=== PATIENT | female | born 1950 | race Caucasian/White ===

== ENCOUNTER 2017-05-03 06:00 | Outpatient (RCR) | payer MEDICARE, OTHER, SELFPAY | END 2017-05-04 23:59 | LOC: CR 06:00 | PROVIDERS: Family Provider Family Medicine; PCP Family Medicine; Visit Provider Internal Medicine Cardiovascular Disease | DX: Z00.00 Encounter for general adult medical examination without abnormal findings (principal) ==

== ENCOUNTER 2017-05-31 06:00 | Outpatient (RCR) | payer MEDICARE, OTHER, SELFPAY | END 2017-06-01 23:59 | LOC: CR 06:00 | PROVIDERS: Family Provider Family Medicine; PCP Family Medicine; Visit Provider Internal Medicine Cardiovascular Disease | DX: Z00.00 Encounter for general adult medical examination without abnormal findings (principal) ==

== ENCOUNTER 2017-06-30 06:00 | Outpatient (RCR) | payer SELFPAY | END 2017-07-02 23:59 | LOC: CR 06:00 | PROVIDERS: Family Provider Family Medicine; PCP Family Medicine; Visit Provider Internal Medicine Cardiovascular Disease | DX: Z00.00 Encounter for general adult medical examination without abnormal findings (principal) ==

== ENCOUNTER 2017-07-28 06:00 | Outpatient (RCR) | payer SELFPAY | END 2017-08-01 23:59 | LOC: CR 06:00 | PROVIDERS: Family Provider Family Medicine; PCP Family Medicine; Visit Provider Internal Medicine Cardiovascular Disease | DX: Z00.00 Encounter for general adult medical examination without abnormal findings (principal) ==

== ENCOUNTER 2017-09-01 06:00 | Outpatient (RCR) | payer SELFPAY | END 2017-09-01 23:59 | LOC: CR 06:00 | PROVIDERS: Family Provider Family Medicine; PCP Family Medicine; Visit Provider Internal Medicine Cardiovascular Disease | DX: Z00.00 Encounter for general adult medical examination without abnormal findings (principal) ==

== ENCOUNTER 2017-09-29 06:00 | Outpatient (RCR) | payer SELFPAY | END 2017-10-01 23:59 | LOC: CR 06:00 | PROVIDERS: Family Provider Family Medicine; PCP Family Medicine; Visit Provider Internal Medicine Cardiovascular Disease | DX: Z00.00 Encounter for general adult medical examination without abnormal findings (principal) ==

== ENCOUNTER 2017-11-01 06:00 | Outpatient (RCR) | payer SELFPAY | END 2017-11-01 23:59 | LOC: CR 06:00 | PROVIDERS: Family Provider Family Medicine; PCP Family Medicine; Visit Provider Internal Medicine Cardiovascular Disease | DX: Z00.00 Encounter for general adult medical examination without abnormal findings (principal) ==

== ENCOUNTER 2017-12-01 06:00 | Outpatient (RCR) | payer SELFPAY | END 2017-12-02 23:59 | LOC: CR 06:00 | PROVIDERS: Family Provider Family Medicine; PCP Family Medicine; Visit Provider Internal Medicine Cardiovascular Disease | DX: Z00.00 Encounter for general adult medical examination without abnormal findings (principal) ==

== ENCOUNTER 2017-12-29 06:00 | Outpatient (RCR) | payer SELFPAY | END 2018-01-01 23:59 | LOC: CR 06:00 | PROVIDERS: Family Provider Family Medicine; PCP Family Medicine; Visit Provider Internal Medicine Cardiovascular Disease | DX: Z00.00 Encounter for general adult medical examination without abnormal findings (principal) ==

== ENCOUNTER 2018-01-31 06:00 | Outpatient (RCR) | payer SELFPAY | END 2018-02-01 23:59 | LOC: CR 06:00 | PROVIDERS: Family Provider Family Medicine; PCP Family Medicine; Referring Provider Internal Medicine Cardiovascular Disease; Visit Provider Internal Medicine Cardiovascular Disease | DX: Z00.00 Encounter for general adult medical examination without abnormal findings (principal) ==

== ENCOUNTER → 2018-02-03 10:38 | Outpatient (CLI) | payer MEDICARE, OTHER, SELFPAY ==
--- NOTE | 2018-02-03 10:44 | US_ITS ---
STUDY: THYROID ULTRASOUND REASON FOR EXAM: Female, 67 years old. Thyroid nodule follow-up TECHNIQUE: Ultrasound evaluation of the thyroid was performed with real-time and static pablo-scale imaging. COMPARISON: 02/20/2017 FINDINGS: RIGHT LOBE: The right lobe of the thyroid gland measures 5.4 x 2.1 x 1.9 cm. There is a homogeneous echotexture. There are 2 solid nodules in the right thyroid lobe measures 1.8 x 1.8 x 1.4 cm and 1.3 x 1.2 x 1.6 cm. The nodules have mildly increased in size since the prior study. The nodules are predominantly slightly hyperechoic with hypoechoic rims and mild intralobular nodular vascular flow. No definitive microcalcifications. 3 mm hypoechoic nodule is stable. LEFT LOBE: The left lobe of the thyroid gland measures 5.4 x 2.1 x 1.6 cm. There is a homogeneous echotexture. There are no demonstrated solid, cystic or complex lesions. ISTHMUS: The isthmus measures 3 mm. The regional lymph nodes are normal. US/Thyroid IMPRESSION: 1. Since 02/10/2017, mild increased size of right solid thyroid nodules with indeterminate sonographic features. Electronically Signed: Bebo Wilkes MD at 19:43 EST , Service support ,
== END ==
PROVIDERS: Family Provider Family Medicine; PCP Family Medicine; Referring Provider Family Medicine; Visit Provider Family Medicine
DX: E04.1 Nontoxic single thyroid nodule (principal)
CPT/HCPCS: 76536

== ENCOUNTER 2018-03-02 06:00 | Outpatient (RCR) | payer SELFPAY | END 2018-03-03 23:59 | LOC: CR 06:00 | PROVIDERS: Family Provider Family Medicine; PCP Family Medicine; Referring Provider Internal Medicine Cardiovascular Disease; Visit Provider Internal Medicine Cardiovascular Disease | DX: Z00.00 Encounter for general adult medical examination without abnormal findings (principal) ==

== ENCOUNTER → 2018-03-08 15:47 | Outpatient (CLI) | payer MEDICARE, OTHER, SELFPAY ==
--- NOTE | 2018-03-08 13:00 | LES_PTH ---
PATIENT: SORAYA MAURICIO LOC: [facility] U#:[id number] AGE/SX: 74/F ROOM: RE03/08/[address]: Dr. Cr Rojas MD : [id number] BED: DIS: SPEC #: [id number] RECD: 03/08/18 15:18 STATUS: JOSE ARMOND #: [id number] DEE DEE: 03/08/18 13:[address]: Cr Rojas DEPT: SURGICAL PATHOLOGY RECD BY: Won Sinclair ENTERED: 03/09/18 08:02 SP TYPE: Lesion OTHR DR: Dr. Chalo Rojas III, MD Tissues: Skin of axilla, NOS Procedures: Surgery Specimen Level IV HEADER OPERATION: Excision left axillary lesion PRE-OP DIAGNOSIS: Partially avulsed skin lesion left axilla TISSUE SUBMITTED: Left axilla tissue MICROSCOPIC DIAGNOSIS Left axillary lesion, excisional biopsy: Seborrheic keratosis. SJ:ricci 03/10/18 MICROSCOPIC DESCRIPTION Slides are reviewed. GROSS DESCRIPTION Received in fixative is one container labeled with the patient's name and designated left axilla. The specimen consists of a piece of pittman-white skin measuring 2 x 1 cm and up to 0.5 cm in thickness. There is a raised, brown lesion on the surface measuring 2 x 1.5 x 0.4 cm. The specimen is inked, serially sectioned and submitted entirely in two cassettes. / AKIKO:ricci 03/09/18 TC:1 CPT: 90052
[2018-03-08 13:02] VITALS: BMI 23.8
== END ==
PROVIDERS: Family Provider Family Medicine; PCP Family Medicine; Referring Provider Surgery; Visit Provider Surgery
DX: L82.1 Other seborrheic keratosis (principal)
CPT/HCPCS: 88305

== ENCOUNTER 2018-03-23 06:00 | Outpatient (RCR) | payer SELFPAY ==
[2018-02-16 09:02] VITALS: BMI 23.8
== END 2018-04-03 23:59 ==
LOC: CR 06:00
PROVIDERS: Family Provider Family Medicine; PCP Family Medicine; Referring Provider Internal Medicine Cardiovascular Disease; Visit Provider Internal Medicine Cardiovascular Disease
DX: Z00.00 Encounter for general adult medical examination without abnormal findings (principal)

== ENCOUNTER 2018-04-06 19:52 | Emergency (ER) | payer MEDICARE, OTHER, SELFPAY ==
[2018-03-08 13:02] VITALS: BMI 23.8
[2018-04-06 19:53] VITALS: BP 144/98; PULSE 60; RESP 9; TEMP 37.2; O2SAT 100; BMI 23.8
--- NOTE | 2018-04-06 20:42 | EKG12_ITS ---
Test Reason : CP Blood Pressure : / mmHG Vent. Rate : 059 BPM Atrial Rate : 059 BPM P-R Int : 146 ms QRS Dur : 066 ms QT Int : 404 ms P-R-T Axes : 072 063 039 degrees QTc Int : 399 ms Sinus bradycardia Nonspecific T wave abnormality Abnormal ECG Confirmed by JEFRY TERAN, DAYNE ([id number]), general expeditor JAMES COOK ([id number]) on 04/11/2018 10:48:11 AM Referred By: Dayne Capps Confirmed By:DAYNE CAPPS MD
--- NOTE | 2018-04-06 20:47 | RAD_ITS ---
STUDY: X-RAY CHEST REASON FOR EXAM: Female, 67 years old. Chest pain TECHNIQUE: A single frontal view of the chest was obtained. COMPARISON: September 01, 2016 FINDINGS: Lines and tubes: None. Lungs: Hyperinflated. No focal airspace opacities. Pleura: No demonstrated abnormality. Mediastinum/logan: Unremarkable. Cardiovascular: Normal size cardiac silhouette. Central vascularity unremarkable. Thoracic aorta unremarkable. Soft tissues: Unremarkable. Bones: Mild degenerative changes in spine and shoulders. There is levoscoliosis of the lower thoracic spine. Upper abdomen: No demonstrated abnormality. RAD/Chest 1 View (Portable) IMPRESSION: No acute cardiopulmonary abnormalities. Stable COPD. Electronically Signed: Ana Mi MD at 21:57 EST Tel Direct: [phone], Service support ,
[2018-04-06] MEDS: Aspirin 81 MG TAB.CHEW 324 MG PO (20:48)
[2018-04-06 21:12] LABS: Absolute Lymphocyte Count 1.78 X10^3/ul (0.83-4.51); Absolute Neutrophil Count 3.6 X10^3/uL (2.0-7.7); Basophil# 0.02 X10^3/uL; Basophil% 0.3 % (0-1); Hematocrit 41.1 % (37-47); Hemoglobin 13.4 g/dl (12.0-15.0); Lymphocyte # 1.78 X10^3/ul (4.0); Lymphocyte % 30.4 % (19-41); Mean Corp Hgb Conc 32.6 g/gl (32-36); Mean Corpuscular Hgb 30.6 pg (27.0-32.0); Mean Corpuscular Volume 93.8 fL (81-99); Mean Platelet Vol. 10.7 fl (6.2-12.0); Monocyte# 0.44 X10^3/uL; Monocyte% 7.5 % (0-10); Neutrophil # 3.62 X10^3/uL (2.7-7.7); Neutrophil % 61.8 % (47-70); Platelet Count 193 K/mm3 (150-450); RBC Distribution Width CV 13.4 % (11.6-14.6); RBC Distribution Width SD 45.9 fl (35.1-43.9); Red Blood Count 4.38 M/mm3 (4.2-5.4); White Blood Count 5.9 K/mm3 (4.4-11.0)
[2018-04-06 21:23] LABS: Anion Gap 7 (5-15); BUN 9 mg/dL (7-18); BUN/Creat Ratio 13.3 RATIO (10-20); Chloride 106 mmol/L (98-107); Creatinine, Serum 0.68 mg/dL (0.55-1.02); EST Glomerular Filtration Rate 91 mL/min (>60); Est Glom Filt Rate - Afr Amer 110 mL/min (>60); Glucose 94 mg/dL (74-106); Potassium 3.4 mmol/L (3.5-5.1); Sodium Level 142 mmol/L (136-145)
[2018-04-06 21:25] LABS: POSITIVE COUNT NO; POSITIVE DIFFERENTIAL NO; POSITIVE MORPHOLOGY NO
[2018-04-06 22:04] VITALS: BP 106/70; PULSE 61; RESP 16; O2SAT 97
--- NOTE | 2018-04-06 22:48 | ED.VISSUMM ---
- ER Visit Summary Date of Service: 04/06/18 Chief Complaint: Chest pain History of Present Illness: The patient is a 67 F who presents with chest pain that began yesterday. Patient states the pain waxes and wanes. Patient describes the pain as a heaviness. Patient states the pain is mainly on the right side of her chest. Patient states that occasionally gets some pain on the left side of her chest that is more sharp. Patient states the pain is worse with eating. Patient states nothing seems to help with the pain. Patient admits to a cough. Patient denies any nausea or vomiting. Patient denies any diaphoresis or shortness of breath. Patient denies any lightheadedness or dizziness. Patient denies any palpitations. Patient denies any cardiac risk factors. Physical Examination: Vital signs are stable. Patient is afebrile. Patient is in no acute distress. Oral mucosa is pink and moist. Neck is supple. Trachea is midline. There is no JVD noted. Heart was regular rate and rhythm. Lungs are clear and equal bilateral. Abdomen is soft. Bowel sounds are normal. There is no tenderness. There is no guarding noted. Skin is warm dry. Cranial nerves II through XII are intact. There are no focal motor or sensory deficits noted. The remaining physical exam is within normal limits. Test Results: EKG showed normal sinus rhythm with a rate of 59. There are nonspecific ST-T wave changes noted. This was unchanged compared to previous EKG dated 09/01/2016. CBC was normal. Basic metabolic profile showed a slight hypokalemia of 3.4. Troponin was normal. Portable chest x-ray shows chronic changes but no acute cardiopulmonary process. Emergency Department Course and Treatment: Patient was given aspirin here. Patient felt better on reevaluation. Patient has a HEART score of 3. Patient has a YOCASTA score of 1. Patient was advised that this is low risk for acute cardiac event. Patient was instructed to follow-up with her primary care physician in 5-7 days. Patient and her understood and were agreeable with the plan. All questions were answered. Disposition: Discharge home Impression: Chest pain of uncertain etiology This note was generated with [employer] software. It may contain incorrect words, spelling, and punctuation that were not noted in review of the chart prior to signing ED Disposition - Plan for ED Patient: Disposition: Home or Assisted Living Chief Complaint: Chest Pain Diagnosis: Chest pain of uncertain etiology Instructions: ED Chest Pain Atypical Unkn Cause Referrals: Chalo Rojas III, MD [Primary Care Provider] -
[2018-04-06 23:02] VITALS: BP 106/79; PULSE 64; RESP 18; O2SAT 97
== END 2018-04-06 23:02 | disposition home or self-care (01) ==
PROVIDERS: Emergency Provider Emergency Medicine; Family Provider Family Medicine; PCP Family Medicine
DX: R07.89 Other chest pain (principal); R05 Cough; R10.9 Unspecified abdominal pain; M54.9 Dorsalgia, unspecified; R51 Headache; E87.6 Hypokalemia; G25.0 Essential tremor; I49.9 Cardiac arrhythmia, unspecified; Z79.899 Other long term (current) drug therapy
CPT/HCPCS: 71045; 80048; 84484; 85025; 93005; 99285; A4216

== ENCOUNTER 2018-05-04 06:00 | Outpatient (RCR) | payer SELFPAY ==
[2018-03-08 13:02] VITALS: BMI 23.8
== END 2018-05-04 23:59 ==
LOC: CR 06:00
PROVIDERS: Family Provider Family Medicine; PCP Family Medicine; Referring Provider Internal Medicine Cardiovascular Disease; Visit Provider Internal Medicine Cardiovascular Disease
DX: Z00.00 Encounter for general adult medical examination without abnormal findings (principal)

== ENCOUNTER 2018-06-01 06:00 | Outpatient (RCR) | payer SELFPAY | END 2018-06-01 23:59 | LOC: CR 06:00 | PROVIDERS: Family Provider Family Medicine; PCP Family Medicine; Referring Provider Internal Medicine Cardiovascular Disease; Visit Provider Internal Medicine Cardiovascular Disease | DX: Z00.00 Encounter for general adult medical examination without abnormal findings (principal) ==

== ENCOUNTER 2018-06-29 06:00 | Outpatient (RCR) | payer SELFPAY | END 2018-07-02 23:59 | LOC: CR 06:00 | PROVIDERS: Family Provider Family Medicine; PCP Family Medicine; Referring Provider Internal Medicine Cardiovascular Disease; Visit Provider Internal Medicine Cardiovascular Disease | DX: Z00.00 Encounter for general adult medical examination without abnormal findings (principal) ==

== ENCOUNTER 2018-08-01 06:00 | Outpatient (RCR) | payer SELFPAY | END 2018-08-01 23:59 | LOC: CR 06:00 | PROVIDERS: Family Provider Family Medicine; PCP Family Medicine; Referring Provider Internal Medicine Cardiovascular Disease; Visit Provider Internal Medicine Cardiovascular Disease | DX: Z00.00 Encounter for general adult medical examination without abnormal findings (principal) ==

== ENCOUNTER 2018-09-28 06:00 | Outpatient (RCR) | payer SELFPAY | END 2018-10-01 23:59 | LOC: CR 06:00 | PROVIDERS: Family Provider Family Medicine; PCP Family Medicine; Referring Provider Internal Medicine Cardiovascular Disease; Visit Provider Internal Medicine Cardiovascular Disease | DX: Z00.00 Encounter for general adult medical examination without abnormal findings (principal) ==

== ENCOUNTER 2018-10-31 06:00 | Outpatient (RCR) | payer SELFPAY | END 2018-11-01 23:59 | LOC: CR 06:00 | PROVIDERS: Family Provider Family Medicine; PCP Family Medicine; Referring Provider Internal Medicine Cardiovascular Disease; Visit Provider Internal Medicine Cardiovascular Disease | DX: Z00.00 Encounter for general adult medical examination without abnormal findings (principal) ==

== ENCOUNTER 2018-11-30 06:00 | Outpatient (RCR) | payer SELFPAY | END 2018-12-02 23:59 | LOC: CR 06:00 | PROVIDERS: Family Provider Family Medicine; PCP Family Medicine; Referring Provider Internal Medicine Cardiovascular Disease; Visit Provider Internal Medicine Cardiovascular Disease | DX: Z00.00 Encounter for general adult medical examination without abnormal findings (principal) ==

== ENCOUNTER → 2018-12-07 09:41 | Outpatient (CLI) | payer MEDICARE, OTHER, SELFPAY ==
[2018-11-13 10:37] VITALS: BMI 22.6
--- NOTE | 2018-12-07 09:43 | ECHOD_ITS ---
Reason For Study: MURMUR Procedure This was a 2D Doppler, Color Flow transthoracic echocardiogram. Exam performed in department. Left Ventricle Normal LV size. Left ventricular systolic function is normal. The estimated ejection fraction is 65 %. Unable to assess diastolic dysfunction. No regional wall motion abnormalities noted. Right Ventricle Normal RV size. Normal systolic function. Atria The left atrium is mildly enlarged. Normal right atrium. No doppler evidence for ASD. Mitral Valve There is no mitral annular calcification. Mild diffuse mitral valve thickening. Moderate mitral valve prolapse, posterior leaflet. Moderate (2+) mitral valve insufficiency. Tricuspid Valve Normal tricuspid valve. Mild tricuspid valve insufficiency. Right ventricular systolic pressure estimated to be 21 mmHg. Aortic Valve Trisinus/trileaflet aortic valve. Mild focal aortic valve calcification. Trivial aortic valve insufficiency. Pulmonic Valve The pulmonic valve is not well visualized. Great Vessels Normal sized aortic root. Pericardium/Pleural No pericardial effusion. MMode/2D Measurements & Calculations LVIDd: 4.2 cm IVSd: 0.98 cm Ao root diam: 3.2 cm LVIDs: 2.5 cm LVPWd: 0.98 cm RVDd: 3.3 cm FS: 39.4 % LAV(MOD-bp): 54.7 ml LVAd ap4: 25.9 cm2 SV(MOD-sp4): 46.9 ml LAV(MOD-bp) Indexed: 31.8 ml/m2 EDV(MOD-sp4): 77.0 ml LAV(MOD-sp2): 58.6 ml EDV(sp4-el): 80.0 ml LAV(MOD-sp4): 43.3 ml LVAs ap4: 15.3 cm2 ESV(MOD-sp4): 30.1 ml ESV(sp4-el): 30.5 ml EF(MOD-sp4): 60.9 % EF(sp4-el): 61.9 % SV(sp4-el): 49.5 ml LA A4 area: 15.8 cm2 LA dimension(2D): 4.0 cm RA A4 area: 10.5 cm2 Doppler Measurements & Calculations Lat Peak E' Jadon: 6.5 cm/sec Med Peak E' Jadon: 4.8 cm/sec Ao V2 max: 101.0 cm/sec Ao max P.1 mmHg AI max jadon: 337.3 cm/sec LV V1 max: 96.6 cm/sec TR max jadon: 211.7 cm/sec AI max P.5 mmHg LV V1 max P.7 mmHg TR max P.9 mmHg AI dec slope: 126.9 cm/sec2 AI P1/2t: 778.5 msec Interpretation Summary Left ventricular systolic function is normal. The estimated ejection fraction is 65 %. The left atrium is mildly enlarged. Mild diffuse mitral valve thickening. Moderate mitral valve prolapse, posterior leaflet Moderate (2+) mitral valve insufficiency. Mild tricuspid valve insufficiency. Mild focal aortic valve calcification. Trivial aortic valve insufficiency. Right ventricular systolic pressure estimated to be 21 mmHg. Unable to assess diastolic dysfunction. Ordering Physician: Dayne Barba Referring Physician: SAVANNAH CASTANON Performed By: Katt Buchanan, ALPHONSO, RVT
== END ==
PROVIDERS: Family Provider Family Medicine; PCP Family Medicine; Referring Provider Internal Medicine Cardiovascular Disease; Visit Provider Internal Medicine Cardiovascular Disease
DX: I34.1 Nonrheumatic mitral (valve) prolapse (principal); I49.1 Atrial premature depolarization; I49.3 Ventricular premature depolarization; R07.9 Chest pain, unspecified
CPT/HCPCS: 93306

== ENCOUNTER 2018-12-28 06:00 | Outpatient (RCR) | payer SELFPAY ==
[2018-11-13 10:37] VITALS: BMI 22.6
== END 2019-01-01 23:59 ==
LOC: CR 06:00
PROVIDERS: Family Provider Family Medicine; PCP Family Medicine; Referring Provider Internal Medicine Cardiovascular Disease; Visit Provider Internal Medicine Cardiovascular Disease
DX: Z00.00 Encounter for general adult medical examination without abnormal findings (principal)

== ENCOUNTER 2019-02-01 06:00 | Outpatient (RCR) | payer SELFPAY ==
[2018-11-13 10:37] VITALS: BMI 22.6
== END 2019-02-01 23:59 ==
LOC: CR 06:00
PROVIDERS: Family Provider Family Medicine; PCP Family Medicine; Referring Provider Internal Medicine Cardiovascular Disease; Visit Provider Internal Medicine Cardiovascular Disease
DX: Z00.00 Encounter for general adult medical examination without abnormal findings (principal)

== ENCOUNTER 2019-02-27 06:00 | Outpatient (RCR) | payer SELFPAY ==
[2018-11-13 10:37] VITALS: BMI 22.6
== END 2019-03-03 23:59 ==
LOC: CR 06:00
PROVIDERS: Family Provider Family Medicine; PCP Family Medicine; Referring Provider Internal Medicine Cardiovascular Disease; Visit Provider Internal Medicine Cardiovascular Disease
DX: Z00.00 Encounter for general adult medical examination without abnormal findings (principal)

== ENCOUNTER 2019-04-03 06:00 | Outpatient (RCR) | payer SELFPAY ==
[2018-11-13 10:37] VITALS: BMI 22.6
== END 2019-04-03 23:59 ==
LOC: CR 06:00
PROVIDERS: Family Provider Family Medicine; PCP Family Medicine; Referring Provider Internal Medicine Cardiovascular Disease; Visit Provider Internal Medicine Cardiovascular Disease
DX: Z00.00 Encounter for general adult medical examination without abnormal findings (principal)

== ENCOUNTER 2019-04-19 11:14 | Day surgery (SDC) | payer MEDICARE, OTHER, SELFPAY ==
[2019-03-08 09:48] VITALS: BMI 22.6
--- NOTE | 2019-03-08 10:36 | HP_ITS ---
Intake Vital Signs 03/08/19 Body Mass Index (BMI) 22.6 03/08/19 Height 5 ft 0.5 in 03/08/19 Weight: 140 lb 03/08/19 Body Mass Index (BMI) 26.9 03/08/19 Blood Pressure 121/78 H 03/08/19 Blood Pressure Location Rt brachial 03/08/19 Blood Pressure Position Sitting 03/08/19 Respiratory Rate 16 Intake Visit Reasons: constipation, decrease urge, hemorrhoids Chief Complaint: excision flank cyst and flank lesion Inspector Barrel Required: No Is patient in pain?: No Allergies Penicillins Allergy (Verified 03/08/19 09:47) Other Sulfa (Sulfonamide Antibiotics) Allergy (Verified 03/08/19 09:47) Other erythromycin base [Erythromycin Base] Adverse Reaction (Verified 03/08/19 09:47) Nausea Medications potassium 99 mg tablet 99 mg PO DAILY 11/13/18 [History Confirmed 11/13/18] nadolol 20 mg tablet 10 mg PO DAILY #45 tab 02/26/19 [Rx] cholecalciferol (vitamin D3) 5,000 unit capsule 5,000 unit PO DAILY 03/08/19 [History Confirmed 03/08/19] phytonadione (vitamin K1) 5 mg tablet 5 mg PO ONCE 03/08/19 [History Confirmed 03/08/19] [facility] Medical History Premature ventricular contraction (Acute) Nonrheumatic mitral (valve) prolapse (Chronic) Atrial premature contractions (Chronic) Colles' fracture of right radius (Acute) Multiple thyroid nodules (Acute) Sebaceous cyst (Acute) Skin lesion (Acute) Surgical History H/O foot surgery (Resolved) Family History Father Hypertension Grandfather Myocardial infarction Social History (Updated 03/08/19 @ 10:36 by Cr Rojas MD) Smoking Status: Never smoker alcohol intake: never substance use type: does not use HPI HPI HPI: SORAYA MAURICIO, is a 68 F who presents to the office today for HPI HPI Surgical H&P: Yes HPI: SORAYA MAURICIO, is a 68 F who presents to the office today for surgical consultation regarding 2 separate issues. One is a lifelong constipation and the other is significantly symptomatic hemorrhoids. The patient is referred by her primary care physician Dr. Chalo Rojas iii third and written copy of my surgical consult recommendations will be returned to him. The patient states that she has had chronic stopped constipation since infancy. She states that she developed hemorrhoids in the period. She states at least for the last 5 years she has had a give her self hot water bottle enemas with tap water to assist with defecation. She uses fiber supplement in the form of Citrucel and she uses as needed MiraLAX. She also uses additional laxatives and she mentioned senna. She had a colonoscopy done by Dr. Roshan Slade July 01, 2011 for the diagnosis of chronic constipation. Diverticulosis and a tortuous colon noted. Follow-up exam at 10 years recommended. The patient states that she is not at all had any acute changes in her bowel behavior since that time. This is a lifelong ongoing chronic problem. She is concerned about the hemorrhoids. She also states that Dr. Chalo Rojas III was interested in surgical inspection and possible treatment. Patient states that she has to wipe using a variety of wet and moisturize products. ROS General General: Yes fatigue; no weight change, appetite, colon cancer, breast cancer or weakness HEENT HEENT: No difficulty swallowing, eye injury, eye surgery, swollen glands or hoarseness Endo Endocrine: No thyroid disease, diabetes mellitus, thyroid cancer, Hair loss, heat intolerance or cold intolerance Skin Skin: No rash or changing moles Breast Breast: No left breast lump, right breast lump, nipple discharge, breast pain, abnormal mammogram, abnormal US or breast enlargement Musc Musculoskeletal: Yes back problems and arthritis; no rheumatoid arthritis, gout or joint pain Cardio Cardiovascular: No murmur, pacemaker, heart disease, atrial fibrillation, high blood pressure, heart attack, heart stent, palpitations, shortness of breat with exertion or chest pain Psych Psychiatric: No depression, anxiety or hearing voices Resp Respiratory: No shortness of breath, No sleep apnea, No cough, No COPD, No asthma, No emphysema, No wheezing Gastro Gastrointestinal: No abdominal pain, No nausea or vomiting, No diarrhea, Yes constipation, No blood in stool, No acid reflux, Yes hemorrhoids, No ulcers, No gallbladder problem, No black,tarry stools Paulino Hematologic: No blood thinners, No blood disorders, No bleeding, No anemia, No blood clots Neuro Neurologic: No system reviewed and no additional complaints, except as docu, No as per HPI, No abnormal walking, No abnormal hearing, No abnormal movements, No abnormal speech, No behavioral changes, No burning sensations, No confusion, No seizure-like activity, No unsteadiness, No dizziness, No localized weakness, No frequent falls, No headache(s), No lack of coordination, No loss of vision, No memory loss, No numbness, No other visual disturbances, No radiating pain, No restless legs, No sensory deficit, No fainting, No tingling, No tremor(s), No weakness, No other Exam Const General: cooperative, healthy appearing, comfortable, no acute distress Nutritional Appearance: average body habitus Orientation: alert, awake HENKS Head: normal to inspection Chest Chest palpation & inspection: normal inspection of the chest Breast Palpation: No nipple discharge Resp Effort & Inspection: normal respiratory effort Auscultation: clear to auscultation bilaterally Cardio Rate: regular rate Rhythm: regular rhythm Heart Sounds: no murmurs GI Palpation: soft, no hepatosplenomegaly Auscultation: normal bowel sounds Other: Stage IV internal and external hemorrhoids. Prolapsed internal hemorrhoids demonstrate small area of slight thrombosis. Digital exam demonstrates exuberant internal tissue. Skin General: no rashes or lesions noted Neuro Cognition: normal cognition Extrem General: no calf tenderness bilaterally Psych Affect: normal affect Assessment & Plan Problems 1. Chronic constipation K59.09 2. Stage IV hemorrhoids K64.3 Plan Because of the severity of her hemorrhoidal disease and area suggesting slight thrombosis unfortunate I am recommending the patient that these be treated surgically. She otherwise enjoys good quality health I am concerned that she will develop the potential for more diffuse thrombosis and possibly gangrenous changes that might in the future required an emergency procedure with risk of infection/sepsis issues. I have encouraged her that during the postoperative period she will be required to take scheduled mineral oil and Citrucel and MiraLAX twice daily and we will prescribe short course of antibiotics and appropriate pain medication and topical ointments. She will utilize sitz baths. She is aware that she must increase her bowel regimen as she will not be able to rely upon tap water enemas for movement of her bowels. She is aware of this. She is aware of the potential risk of impaction. I anticipate a very aggressive recommendation for postoperative bowel regimen. She has had an opportunity to ask and have questions answered. We will schedule and proceed at her discretion. At this time she presents with chronic constipation with bowel habits unchanged over her life. She is up-to-date with her colonoscopy 2011 with no personal history of colon polyps or family history of colon cancer. Finally she states that her father on the commode straining because of his chronic constipation. I did briefly discussed with the patient concerns about severe chronic constipation and possible colorectal surgery referral for considerations and possible subtotal colectomy. These concepts were not of interest to her at this time. I appreciate the opportunity of assisting with her surgical care. We will schedule and proceed as noted. I am hopeful to be able to proceed with monitored anesthesia care and local anesthetic. CC: Dr. Chalo Rojas, III Cr Rojas M.D., F.A.C.S. Coding Level of Care Code 69378 Diagnoses Chronic constipation K59.09 Stage IV hemorrhoids K64.3 03/08/19 1036 <Electronically signed by Cr davila MD> Date _ Cr Rojas MD
[2019-04-16 09:43] VITALS: BMI 22.6
[2019-04-19] VITALS (9 sets, daily range): BP systolic 88–127; BP diastolic 44–79; PULSE 58–67; RESP 14–16; TEMP 36.3–36.8; O2SAT 95–100; BMI 22.6
[2019-04-19] MEDS: Lactated Ringers 1,000 ML 100 ML IV (12:55)
--- NOTE | 2019-04-19 13:11 | HP.PCM_ITS ---
Problem List (1) Stage IV hemorrhoids Status: Acute History and Physical Date of Admission: 04/19/19 laz Visit Reasons: update h&p Chief Complaint: update H&P hemorrhoidectomy 1-16 [place] Required: No Is patient in pain?: No Allergies Penicillins Allergy (Verified 04/16/19 09:42) Other Sulfa (Sulfonamide Antibiotics) Allergy (Verified 04/16/19 09:42) Other erythromycin base [Erythromycin Base] Adverse Reaction (Verified 04/16/19 09:42) Nausea Medications potassium 99 mg tablet 99 mg PO DAILY 11/13/18 [History Confirmed 04/16/19] nadolol 20 mg tablet 10 mg PO DAILY #45 tab 02/26/19 [Rx Confirmed 04/16/19] cholecalciferol (vitamin D3) 125 mcg (5,000 unit) capsule 5,000 unit PO DAILY 03/08/19 [History Confirmed 04/16/19] phytonadione (vitamin K1) 5 mg tablet 100 mg PO DAILY 03/08/19 [History Co nfirmed 04/16/19] Alpha Lipoic Acid 200 mg PO DAILY 04/12/19 [History Confirmed 04/16/19] Gluc/MSM/C/[place]/Prim [Joint Support Complex Softgel] 2 ea PO BID 04/12/19 [History Confirmed 04/16/19] Melatonin 0.5 mg PO QHS 04/12/19 [History Confirmed 04/16/19] Selenium 200 mcg PO QODAY 04/12/19 [History Confirmed 04/16/19] Senna [Senokot] 1 tab PO DAILY 04/12/19 [History Confirmed 04/16/19] Vitamin B Complex 1 ea PO QODAY 04/12/19 [History Confirmed 04/16/19] Is last menstrual period known: No Post menopausal: Yes Patient : No [facility] Medical History (Updated 04/16/19 @ 09:40 by Meena Dawson) Stage IV hemorrhoids (Acute) Chronic constipation (Chronic) Premature ventricular contraction (Acute) Nonrheumatic mitral (valve) prolapse (Chronic) Atrial premature contractions (Chronic) Cardiac murmur (Acute) Colles' fracture of right radius (Acute) Multiple thyroid nodules (Acute) Osteoarthritis (Acute) Sebaceous cyst (Acute) Skin lesion (Acute) Surgical History H/O foot surgery (Resolved) Family History Father Hypertension Grandfather Myocardial infarction Social History (Updated 04/16/19 @ 10:39 by Jocelin Melton PA-C) Smoking Status: Never smoker alcohol intake: never substance use type: does not use HPI HPI HPI: SORAYA MAURICIO, is a 68 F who presents to the office today for HPI HPI Surgical H&P: Yes HPI: SORAYA MAURICIO, is a 68 F who presents to the office today for an update history and physical for an upcoming hemorrhoidectomy procedure. Patient denies recent hospitalizations or illnesses. Patient notes occasional rectal bleeding with wiping too much. Patient's previous history per Dr. Rojas: SORAYA MAURICIO, is a 68 F who presents to the office today for surgical consultation regarding 2 separate issues. One is a lifelong constipation and the other is significantly symptomatic hemorrhoids. The patient is referred by her primary care physician Dr. Chalo Rojas iii third and written copy of my surgical consult recommendations will be returned to him. The patient states that she has had chronic stopped constipation since infancy. She states that she developed hemorrhoids in the period. She states at least for the last 5 years she has had a give her self hot water bottle enemas with tap water to assist with defecation. She uses fiber supplement in the form of Citrucel and she uses as needed MiraLAX. She also uses additional laxatives and she mentioned senna. She had a colonoscopy done by Dr. Roshan Slade July 01, 2011 for the diagnosis of chronic constipation. Diverticulosis and a tortuous colon noted. Follow-up exam at 10 years recommended. The patient states that she is not at all had any acute changes in her bowel behavior since that time. This is a lifelong ongoing chronic problem. She is concerned about the hemorrhoids. She also states that Dr. Chalo Rojas III was interested in surgical inspection and possible treatment. Patient states that she has to wipe using a variety of wet and moisturize products. ROS General General: Yes fatigue; no weight change, appetite, colon cancer, breast cancer or weakness HEENT HEENT: No difficulty swallowing, eye injury, eye surgery, swollen glands or hoarseness Endo Endocrine: No thyroid disease, diabetes mellitus, thyroid cancer, Hair loss, heat intolerance or cold intolerance Skin Skin: No rash or changing moles Breast Breast: No left breast lump, right breast lump, nipple discharge, breast pain, abnormal mammogram, abnormal US or breast enlargement Musc Musculoskeletal: Yes back problems and arthritis; no rheumatoid arthritis, gout or joint pain Cardio Cardiovascular: No murmur, pacemaker, heart disease, atrial fibrillation, high blood pressure, heart attack, heart stent, palpitations, shortness of breat with exertion or chest pain Psych Psychiatric: No depression, anxiety or hearing voices Resp Respiratory: No shortness of breath, No sleep apnea, No cough, No COPD, No asthma, No emphysema, No wheezing Gastro Gastrointestinal: No abdominal pain, No nausea or vomiting, No diarrhea, Yes constipation, No blood in stool, No acid reflux, Yes hemorrhoids, No ulcers, No gallbladder problem, No black,tarry stools Paulino Hematologic: No blood thinners, No blood disorders, No bleeding, No anemia, No blood clots Neuro Neurologic: No weakness Exam Const General: cooperative, healthy appearing, comfortable, no acute distress HENNC Head: normal to inspection Eyes General: appearance normal, both eyes and all related structures Neck Neck: normal visual inspection Neck mass: No Chest Breast Palpation: No nipple discharge Resp Effort & Inspection: normal respiratory effort Auscultation: clear to auscultation bilaterally Cardio Rate: regular rate Rhythm: regular rhythm Heart Sounds: no murmurs GI Inspection: normal to inspection Palpation: soft Auscultation: normal bowel sounds Neuro General: no focal motor deficits, CN's II-XI intact bilaterally Extrem General: normal to inspection Psych Appearance: grossly normal Affect: normal affect Assessment & Plan Problems 1. Stage IV hemorrhoids K64.[address] Rojas will plan to perform a hemorrhoidectomy. Procedure details, risks and benefits have been reviewed. Patient has had the opportunity to ask and have questions answered. Patient verbally understands and agrees with the plan. It was recommended to the patient that she start on a mineral oil, metamucil, and Miralax twice daily regimen for her bowels. Patient has a history of constipation since childhood. Patient was also notified that she will have a prescription for antibiotics post-operatively. Coding Level of Care Code No Charge Diagnoses Stage IV hemorrhoids K64.3 04/16/19 1039 <Electronically signed by Jocelin guzman PA-C> Date _ Jocelin Prabhakar Signature: Date (if applicable) CC: Chalo Rojas III, MD ~ I have re-examined the patient. There are no clinical changes since date of exam.
--- NOTE | 2019-04-19 13:30 | HEM_PTH ---
PATIENT: SORAYA MAURICIO [place] [facility] [id number] AGE/SX: 68/F ROOM: RE04/19/[address]: Dr. Cr Rojas MD : [id number] BED: DIS: 04/19/2019 SPEC #: [id number] RECD: 04/19/19 15:31 STATUS: JOSE ARMOND #: [id number] DEE DEE: 04/19/19 13:[address]: Cr Rojas DEPT: SURGICAL PATHOLOGY RECD BY: Fouzia Shanks ENTERED: 04/20/19 09:33 SP TYPE: HEMORRHOID OTHR DR: Dr. Chalo Rojas III, MD Tissues: HEMORRHOIDS Procedures: Surgery Specimen Level III HEADER OPERATION: Hemorrhoidectomy PRE-OP DIAGNOSIS: Stage IV hemorrhoids, K64.3 TISSUE SUBMITTED: Hemorrhoids MICROSCOPIC DIAGNOSIS Hemorrhoids: Pieces of anorectal mucosa with dilated and congested blood vessels, consistent with hemorrhoids. SJ:ricci 04/23/19 MICROSCOPIC DESCRIPTION Slides are reviewed. GROSS DESCRIPTION Received in fixative is one container labeled with the patient's name and designated hemorrhoids. The specimen consists of three variable sized pieces of pittman mucosal tissue that in aggregate measure 4 x 4.5 x 2.5 cm. Also present in the container are two smaller pieces of pittman mucosal tissue that in aggregate measure 1 x 1.5 x 0.5 cm. Sections reveal congested and hemorrhagic cut surfaces. Fermenter Wine sections are submitted in two cassettes. / AKIKO:ricci 04/20/19 TC:5 CPT: 49388
--- NOTE | 2019-04-19 14:10 | PCM.DC.REC ---
Discharge Diet: No Restrictions Discharge Activity: Return to Normal Activity, May Not Drive - while you are taking narcotic pain medications. Do not drive, work with heavy equipment or sign legal documents for 24 hours after your surgery. Additional Activity Instructions:: Mineral oil 30 cc or 1 ounce in juice or food daily for 1 week. Sits baths in soapy warm water for 20 minutes at a time as needed for comfort and hygiene. Dibucaine ointment every 2 hours as needed for comfort. Fiber supplementation 1 heaping tablespoon in juice or water daily Additional Dressing/Incision Instructions:: You may remove the Vaseline gauze tomorrow morning. You may utilize a female hygiene pad or gauze as needed for drainage Allergies/Adverse Reactions: Allergies Penicillins Allergy (Verified 04/16/19 09:42) Other Sulfa (Sulfonamide Antibiotics) Allergy (Verified 04/16/19 09:42) Other erythromycin base [Erythromycin Base] Adverse Reaction (Verified 04/16/19 09:42) Nausea Medications to take at Discharge potassium 99 mg tablet 99 mg PO DAILY 11/13/18 nadolol 20 mg tablet 10 mg PO DAILY #45 tab 02/26/19 cholecalciferol (vitamin D3) 125 mcg (5,000 unit) capsule 5,000 unit PO DAILY 03/08/19 phytonadione (vitamin K1) 5 mg tablet 100 mg PO DAILY 03/08/19 Alpha Lipoic Acid 200 mg PO DAILY 04/12/19 Gluc/MSM/C/[place]/Manganes/Prim [Joint Support Complex Softgel] 2 ea PO BID 04/12/19 Melatonin 0.5 mg PO QHS 04/12/19 Selenium 200 mcg PO QODAY 04/12/19 Senna [Senokot] 1 tab PO DAILY 04/12/19 Vitamin B Complex 1 ea PO QODAY 04/12/19 Hydrocodone Bitart/Apap 5-325 [What [place]er 5MG-325MG] 1 tablet PO Q6H PRN PRN 3 Days #10 tablet 04/19/19 Hydrocortisone [Proctocream-Hc] 30 gm PA PRN PRN #1 cream..g. 04/19/19 Metronidazole 250 mg PO TID #15 tab 04/19/19 The following prescriptions were given: Metronidazole 250 mg PO TID #15 tab Transmission Status: Pending to [facility]/pharmacy #[id number] Hydrocodone Bitart/Apap 5-325 [[place]er 5MG-325MG] 1 tablet PO Q6H PRN PRN 3 Days #10 tablet PRN Reason: Pain Transmission Status: Received by [facility] #[id number] Hydrocortisone [Proctocream-Hc] 30 gm PA PRN PRN #1 cream..g. PRN Reason: pain Transmission Status: Pending to [facility] #[id number] Orders to be completed after discharge: 12 Lead EKG [[facility]] Time Frame: 04/12/19, Facility: [facility], Location: Cardiovascular Services Primary Care Physician: Chalo Rojas III, MD [Primary Care Provider] - Test Results: Test results from this visit will be discussed in further detail at your follow-up appointment, if applicable. Please Follow Up With: Cr Rojas MD - [phone] When: Plan to have a follow up approximately 3 weeks after surgery.
[2019-04-19] MEDS: Lubricating Jelly 60 GM Tube 30 GM TOPICAL (14:23)
[2019-04-19] MEDS: BUPIVACAINE LIPOSOME/PF 20 ML VIAL OPERA.SITE (14:23)
[2019-04-19] MEDS: Bupivacaine Mpf 0.5% 30 ML VIAL (14:23)
[2019-04-19] MEDS: Dibucaine 30 GM Tube 1 APPLIC (15:06)
--- NOTE | 2019-04-19 15:26 | PCM.OPRPT ---
Problem List (1) Stage IV hemorrhoids Status: Acute Report of Operation Date of Procedure: 04/19/19 Pre-Operative Diagnosis: Grade 4 internal and external hemorrhoids Post-Operative Diagnosis: Same Surgery/Procedure Performed:: Extensive hemorrhoidectomy Description of Surgical Findings:: Timeout and informed consent was obtained. 68-year-old female was taken the operating placed on the table underwent monitored anesthesia care. Clindamycin 900 mg was given intravenously preoperatively. Perianal area was prepped with Betadine. 20 cc of Exparel was mixed with 30 cc of 0.5% Marcaine and used as a local anesthetic. Perianal injection was performed. There were 3 large bulky areas of internal and external hemorrhoids. Anterior right lateral posterior right lateral and left lateral. Apical sutures of 2-0 chromic was placed wedge excision was performed with harmonic scalpel. The mucosa was then approximated with a running locking 2-0 chromic. Additionally apical sutures of sepetu-rd-lsgla of 0 chromic were placed to further assure hemostasis. There are 3 wedge excisions were performed. The vast bulk of the hemorrhoidal tissue was removed. Vaseline gauze treated with dibucaine ointment was inserted. Cover dressings applied. Sponge and instrument and needle counts were reported to the surgeon to be correct. Dry covered dry was applied. She was taken to the recovery area in status condition without apparent complication. Specimen hemorrhoids. Drains the Vaseline gauze. Blood loss minimal Cr Rojas M.D., F.A.C.S. Type of Anesthesia:: Local MAC Anesthesiologist: Sara Malin
== END 2019-04-19 17:50 | disposition home or self-care (01) ==
LOC: SDC 11:20 → AC 11:23
PROVIDERS: Family Provider Family Medicine; PCP Family Medicine; Referring Provider Surgery; Visit Provider Surgery
PROC: (CPT 46260; principal; 2019-04-19 13:15)
DX: K64.3 Fourth degree hemorrhoids (principal); K64.4 Residual hemorrhoidal skin tags; K59.09 Other constipation; I49.3 Ventricular premature depolarization; I49.1 Atrial premature depolarization; I34.1 Nonrheumatic mitral (valve) prolapse; K58.9 Irritable bowel syndrome, unspecified; M19.90 Unspecified osteoarthritis, unspecified site; Z78.0 Asymptomatic menopausal state; Z79.899 Other long term (current) drug therapy
CPT/HCPCS: 00902; 46260; 88304; J7120; A4216

== ENCOUNTER 2019-05-03 06:00 | Outpatient (RCR) | payer SELFPAY ==
[2019-03-08 09:48] VITALS: BMI 22.6
== END 2019-05-04 23:59 ==
LOC: CR 06:00
PROVIDERS: Family Provider Family Medicine; PCP Family Medicine; Referring Provider Internal Medicine Cardiovascular Disease; Visit Provider Internal Medicine Cardiovascular Disease
DX: Z00.00 Encounter for general adult medical examination without abnormal findings (principal)

== ENCOUNTER 2019-05-31 06:00 | Outpatient (RCR) | payer SELFPAY ==
[2019-04-19 12:31] VITALS: BMI 22.6
== END 2019-06-02 23:59 ==
LOC: CR 06:00
PROVIDERS: Family Provider Family Medicine; PCP Family Medicine; Referring Provider Internal Medicine Cardiovascular Disease; Visit Provider Internal Medicine Cardiovascular Disease
DX: Z00.00 Encounter for general adult medical examination without abnormal findings (principal)

== ENCOUNTER 2019-06-26 06:00 | Outpatient (RCR) | payer SELFPAY ==
[2019-04-19 12:31] VITALS: BMI 22.6
== END 2019-07-03 23:59 ==
LOC: CR 06:00
PROVIDERS: Family Provider Family Medicine; PCP Family Medicine; Referring Provider Internal Medicine Cardiovascular Disease; Visit Provider Internal Medicine Cardiovascular Disease
DX: Z00.00 Encounter for general adult medical examination without abnormal findings (principal)

== ENCOUNTER 2019-08-07 06:49 | Outpatient (RCR) | payer SELFPAY ==
[2019-04-19 12:31] VITALS: BMI 22.6
== END 2019-09-02 23:59 ==
LOC: CR 06:49
PROVIDERS: Family Provider Family Medicine; PCP Family Medicine; Referring Provider Internal Medicine Cardiovascular Disease; Visit Provider Internal Medicine Cardiovascular Disease
DX: Z00.00 Encounter for general adult medical examination without abnormal findings (principal)

== ENCOUNTER → 2019-09-18 16:03 | Outpatient (CLI) | payer MEDICARE, OTHER, SELFPAY ==
[2019-04-19 12:31] VITALS: BMI 22.6
--- NOTE | 2019-09-18 16:16 | RAD_ITS ---
STUDY: X-RAY - LUMBAR SPINE REASON FOR EXAM: Female, 69 years old. pt experiencing lower back pain for 3 months, pain radiating into her hip TECHNIQUE: 5 view(s) of the lumbar spine were obtained. COMPARISON: None FINDINGS: Normal lumbar lordosis. There is mild dextro scoliosis. There is a normal alignment of the vertebrae. Mild chronic wedging of superior endplate of L4 No evidence for acute fracture or subluxation.. Multilevel disc space narrowing and endplate spurring. The soft tissue structures are unremarkable. RAD/L/S Spine Min 4 Views IMPRESSION: Mild scoliosis and degenerative change.. No evidence for acute fracture or other significant bony pathology Electronically Signed: Raad Beard MD at 20:23 EDT , Service support ,
== END ==
PROVIDERS: PCP Family Medicine; Referring Provider Anesthesiology Pain Medicine; Visit Provider Anesthesiology Pain Medicine
DX: M54.5 Low back pain (principal)
CPT/HCPCS: 72110

== ENCOUNTER 2019-09-20 11:08 | Observation (INO) | payer MEDICARE, OTHER, SELFPAY ==
[2019-04-19 12:31] VITALS: BMI 22.6
[2019-09-20] VITALS (7 sets, daily range): BP systolic 97–146; BP diastolic 48–76; PULSE 64–85; RESP 14–18; TEMP 36.2–36.7; O2SAT 97–100; BMI 22.6
--- NOTE | 2019-09-20 11:21 | EKG12_ITS ---
Test Reason : CP REPEAT Blood Pressure : / mmHG Vent. Rate : 066 BPM Atrial Rate : 066 BPM P-R Int : 170 ms QRS Dur : 072 ms QT Int : 374 ms P-R-T Axes : 043 062 038 degrees QTc Int : 392 ms Normal sinus rhythm T wave abnormality, consider anterior ischemia Abnormal ECG When compared with ECG of 20-SEP-2019 11:17, MANUAL COMPARISON REQUIRED, DATA IS UNCONFIRMED Confirmed by MICHAEL TERAN, CHRISTIE ([id number]), film editor supervisor CALISTA NAYLOR ([id number]) on 09/25/2019 11:09:17 AM Referred By: ERIN Confirmed By:CHRISTIE RODRIGUEZ MD
--- NOTE | 2019-09-20 11:21 | RAD_ITS ---
STUDY: X-RAY CHEST REASON FOR EXAM: Female, 69 years old. RT SIDE CP X 1 YR ON/OFF TECHNIQUE: Single AP portable view of the chest. COMPARISON: Comparison is made with prior examination dated April 06, 2018. FINDINGS: EKG electrodes are seen. Hyperinflation. The lungs are clear. There is no demonstrated pleural abnormality. Normal size heart. Normal mediastinum and logan. Normal visualized pulmonary arteries. There is atherosclerotic calcification of the aortic arch with tortuosity. There are degenerative changes of the visualized thoracic spine. Normal visualized ribs, clavicles, and shoulders. There is no demonstrated abnormality of the visualized soft tissue structures of the upper abdomen. RAD/Chest 1 View (Portable) IMPRESSION: Hyperinflation. Electronically Signed: Tomer Jenkins, at 12:11 EDT , Service support ,
[2019-09-20 11:37] LABS: Absolute Lymphocyte Count 0.86 X10^3/uL (0.83-4.51); Absolute Neutrophil Count 3.4 X10^3/uL (2.0-7.7); Basophil# 0.01 X10^3/uL; Basophil% 0.2 % (0-1); Hematocrit 43.9 % (37-47); Hemoglobin 14.5 g/dL (12.0-15.0); Lymphocyte # 0.86 X10^3/ul (4.0); Lymphocyte % 18.5 % (19-41); Mean Corpuscular Hgb 30.8 pg (27.0-32.0); Mean Corpuscular Volume 93.2 fL (81-99); Mean Platelet Vol. 9.6 fl (6.2-12.0); Monocyte# 0.35 X10^3/uL; Monocyte% 7.5 % (0-10); NRBC Flagged by Analyzer 0 % (0-5); Neutrophil # 3.43 X10^3/uL (2.7-7.7); Neutrophil % 73.6 % (47-70); Platelet Count 194 K/mm3 (150-450); RBC Distribution Width CV 12.1 % (11.6-14.6); RBC Distribution Width SD 41.7 fl (35.1-43.9); Red Blood Count 4.71 M/mm3 (4.2-5.4); White Blood Count 4.7 K/mm3 (4.4-11.0)
--- NOTE | 2019-09-20 11:39 | ED.VISSUMM ---
- ER Visit Summary Date of Service: 09/20/19 Chief Complaint: [Chest pain] History of Present Illness: The patient is a 69 F [presents to the emergency department complaint of chest pain that started around 4:30 AM. Patient states the discomfort is in the right side of her chest and is kind of a dull pain that at times will radiate across to the left side of her chest. Pain is not worse with movement or breathing. She denies any nausea or vomiting. She denies any diaphoresis. Patient has no heart history. She does have history of high cholesterol and history of mitral valve prolapse. Patient denies recent travel or surgery. Patient has no history of PE or DVT. She does not smoke. She denies any fever or cough or recent illness.] Physical Examination: [HEENT-PERRLA, EOMI. Cranial nerves II through XII grossly intact. TMs clear. Mucous membranes moist. No adenopathy. Cardiovascular-regular rate and rhythm without murmur or ectopy Lungs-clear to auscultation, chest wall stable without crepitus or subcu emphysema Abdomen-normoactive bowel sounds, soft, nontender, no rebound or rigidity, no peritoneal signs. Extremities-intact ?4, normal range of motion, normal pulses, atraumatic] Test Results: [EKG obtained on arrival shows sinus rhythm with a ventricular rate of [address] changes noted. When compared with prior EKG from April 2018 no significant new changes noted.] CBC with differential was normal. Chemistries unremarkable. Troponin less than 0.015. D-dimer is normal at 0.47. Chest x-ray showed hyperinflation Emergency Department Course and Treatment: [Patient had an IV line established on arrival. 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 Patient was given aspirin. She was given 1 sublingual nitro however if she did not like the way it made her feel so she refused any more. She does not think that one nitro helped her very much.] Treatment Plan: [Admit] Disposition: [Admit] Impression: [Chest pain-rule out acute coronary syndrome] This note was generated with [employer] software. It may contain incorrect words, spelling, and punctuation that were not noted in review of the chart prior to signing ED Disposition - Plan for ED Patient: Referrals: Chalo Rojas III, MD [Primary Care Provider] -
[2019-09-20] MEDS: 0.9% Normal Saline 1,000 ML 150 ML IV (11:42)
[2019-09-20] MEDS: Aspirin 81 MG TAB.CHEW 324 MG PO (11:42)
[2019-09-20] MEDS: Nitroglycerin SL (ED/IMG/CATH) 0.4 MG TABLET SUBLINGUAL (11:44)
[2019-09-20 11:56] LABS: Anion Gap 8 (5-15); BUN 7 mg/dL (7-18); BUN/Creat Ratio 10.6 RATIO (10-20); Calcium,Total 9.3 mg/dL (8.5-10.1); Chloride 102 mmol/L (98-107); Creatinine, Serum 0.66 mg/dL (0.55-1.02); EST Glomerular Filtration Rate 94 mL/min (>60); Est Glom Filt Rate - Afr Amer 113 mL/min (>60); Glucose 158 mg/dL (74-106); Potassium 3.4 mmol/L (3.5-5.1); Sodium Level 140 mmol/L (136-145)
--- NOTE | 2019-09-20 12:04 | ED.RN ---
pt requests no more nitro. states made her feel very weird
[2019-09-20 12:30] LABS: D-Dimer Quantitative (DVT/PE) 0.47 FEU/ug/m (0.27-0.49)
--- NOTE | 2019-09-20 13:08 | PCM.HP.STD ---
Problem List (1) Atypical chest pain Status: Acute (2) Stage IV hemorrhoids Status: Acute (3) Chronic constipation Status: Chronic (4) Premature ventricular contraction Status: Acute (5) Nonrheumatic mitral (valve) prolapse Status: Chronic (6) Atrial premature contractions Status: Chronic (7) Chest pain Status: Acute Qualifiers: Chest pain type: unspecified Qualified Code(s): R07.9 - Chest pain, unspecified History of Present Illness Date of Admission: 09/20/19 Chief Complaint: Chest pain The patient is a 69 year old F with history of mitral valve prolapse, PACs and PVCs, follow Dr. Barba came to ER with chest pain. She has been having chest pain for few days unrelated to exertion but certainly had chest pain in the morning about 4:30 AM today which woke her up. It is right-sided felt like gas/tightness and then moved across the chest. No aggravating or relieving factor and patient still has chest pain although it is less intense, 2/10 x 10 intensity. No radiation or referred pain to jaw, interscapular area or numbness tingling in hands. It is not associated with shortness of breath, dizziness or syncope or palpitation. No cough, fever or recent illness. In ED, first EKG shows normal sinus rhythm at 75 bpm, possible LAE with T inversion in lead V3 and V4 but not significant EKG change from previous EKG of April 06, 2018 except sinus bradycardia at 59 beats per. Repeat EKG also shows to T wave inversion in V3 and V4. Troponin is negative. Past Medical History Past Medical History (Chronic Problems): Chronic Problems (Last Reviewed 06/11/19 @ 09:53 by Serene Ledezma) Chronic constipation (Chronic) Nonrheumatic mitral (valve) prolapse (Chronic) Atrial premature contractions (Chronic) Medical History: Medical History (Last Reviewed 06/11/19 @ 09:53 by Serene Ledezma) Stage IV hemorrhoids (Acute) K64.3 Chronic constipation (Chronic) K59.09 Premature ventricular contraction (Acute) I49.3 Nonrheumatic mitral (valve) prolapse (Chronic) I34.1 Atrial premature contractions (Chronic) I49.1 Cardiac murmur R01.1 Colles' fracture of right radius S52.531A Multiple thyroid nodules E04.2 Osteoarthritis M19.90 Sebaceous cyst L72.3 Skin lesion L98.9 Allergies Penicillins Allergy (Verified 09/20/19 11:12) Other Sulfa (Sulfonamide Antibiotics) Allergy (Verified 09/20/19 11:12) Other erythromycin base [Erythromycin Base] Adverse Reaction (Verified 09/20/19 11:12) Nausea Home Medications: Ambulatory Orders Medication Instructions Recorded potassium 99 mg tablet 99 mg PO DAILY 11/13/18 cholecalciferol (vitamin D3) 125 5,000 unit PO DAILY 03/08/19 mcg (5,000 unit) capsule Alpha Lipoic Acid 200 mg PO DAILY 04/12/19 Gluc/MSM/C/[place]/Manganes/Prim 2 capsule PO BID 04/12/19 [Joint Support Complex Softgel] Melatonin 0.5 mg PO QHS 04/12/19 Selenium 200 mcg PO QODAY 04/12/19 biotin 1 mg capsule 1 mg PO DAILY 06/11/19 Nadolol 10 mg PO DAILY 09/20/19 Phytonadione (Vit K1) [Vitamin K] 100 mcg PO DAILY 09/20/19 Psyllium Husk/Aspartame [Metamucil 1,320 gm PO BID 09/20/19 Powder] Surgical History: Surgical History (Last Reviewed 06/11/19 @ 09:53 by Serene Ledezma) S/P hemorrhoidectomy Z98.890, Z87.19 04/19/19 H/O foot surgery Z98.890 Surgical History: - - Two hammertoe surgeries with no previous complications from anesthesia Psychiatric History: No pertinent psych hx MAINTENANCE AND OPERATIONS SUPERVISOR History: No pertinent MAINTENANCE AND OPERATIONS SUPERVISOR history Smoking Status: Never smoker Review of Systems Constitutional: Denies: Chills, Fever, Weight Change HEENT: Denies: Head Aches, Sinus Congestion, Sinus Drainage Cardiovascular: Reports: Chest Pain. Denies: Palpitations Respiratory: Denies: Cough, Shortness of breath at rest, Sputum production Gastrointestinal: Reports: - - Mild dyspeptic symptoms including gas feeling. Denies: Abdominal Pain, Constipation, Diarrhea, Nausea, Vomiting Genitourinary: Denies: Dysuria, Frequency, Nocturia, Urgency Musculoskeletal: Denies: Joint Pain, Joint Tenderness Skin: Denies: Rash, Wounds Neurological: Denies: Numbness, Tingling, Focal weakness Psychiatric: Denies: Anxiety, Depression, Homicidal Ideations, Suicidal Ideations Hematologic/ Lymphatic: Denies: Easy Bruising, Easy Bleeding VTE Information - Inpt Only VTE Present on Admission: No VTE Mechan Device Prophylaxis: None VTE Pharm Prophylaxis ordered?: Yes Patient Problems: Active and Suspected Problems (Last Reviewed 06/11/19 @ 09:53 by Serene Ledezma) Atypical chest pain (Acute) - Physical Exam Vitals/I&O's: Vital Signs Temp Pulse Resp BP Pulse Ox 97.2 F L 85 18 124/69 H 99 09/20/19 11:09 09/20/19 11:44 09/20/19 11:09 09/20/19 11:44 09/20/19 11:09 Oxygen Delivery Method Room Air Weight: 140 lb Body Mass Index (BMI) 22.6 General: Alert, Oriented x3, Cooperative HEENT: Atraumatic, PERRLA, EOMI, Normocephalic Oral: No Gingival or Mucosal Lesions/ Ulcerations, Dry Mucosa Neck: Supple, No JVD, Negative Carotid Bruits Lungs: Clear to auscultation, Normal air movement, No rhonchi, No wheeze, No rales Cardiovascular: Regular rate, Regular Rhythm, Normal S1, Normal S2, No murmurs Abdomen: Bowel Sounds Present, Soft, Non Tender, Non-Distended Extremities: No edema, Capillary Refill Less than 3 Seconds Skin: No rashes, No breakdown Musculoskeletal: No Tenderness to Palpation of Joints or Extremities Neurological: Cranial nerves II-XII grossly intact Psych/Mental Status: Normal Affect, Appropriate Laboratory Results 09/20/19 11:30: WBC 4.7, RBC 4.71, Hgb 14.5, Hct 43.9, MCV 93.2, MCH 30.8, MCHC 33.0, RDW Std Deviation 41.7, RDW Coeff of Ramón 12.1, Plt Count 194, MPV 9.6, Immature Gran % (Auto) 0.200, Neut % (Auto) 73.6 H, Lymph % (Auto) 18.5 L, [place] % (Auto) 7.5, Eos % (Auto) 0.0, Baso % (Auto) 0.2, Absolute Neuts (auto) 3.4, Absolute Lymphs (auto) 0.86, Nucleated RBC % 0 09/20/19 11:30: Sodium 140, Potassium 3.4 L, Chloride 102, Carbon Dioxide 30.0, Anion Gap 8, BUN 7, Creatinine 0.66, Estim Creat Clear Calc 48.30, Est GFR (MDRD) Af Amer 113, Est GFR (MDRD) Non-Af 94, BUN/Creatinine Ratio 10.6, Glucose 158 H, Calcium 9.3, Troponin I < 0.015 09/20/19 11:30: D-Dimer Quant (PE/DVT) 0.47 Current Medications Sodium Chloride () 1,000 mls @ 150 mls/hr IV .Q6H40M HALLEY Last Admin: 09/20/19 11:42 Dose: 150 mls/hr Documented by: Nitroglycerin (Nitrostat) 0.4 mg SUBLINGUAL Q5M PRN PRN Reason: Chest pain Last Admin: 09/20/19 11:44 Dose: 0.4 mg Documented by: Assessment/Plan All Active Problems (Last Reviewed 06/11/19 @ 09:53 by Serene Ledezma) Atypical chest pain (Acute) Stage IV hemorrhoids (Acute) Premature ventricular contraction (Acute) Chest pain (Acute) The patient is a 69 year old F with history of mitral valve prolapse, PACs and PVCs, follow Dr. Barba came to ER with chest pain. In ED, first EKG shows normal sinus rhythm at 75 bpm, possible LAE with T inversion in lead V3 and V4 but not significant EKG change from previous EKG of April 06, 2018 except sinus bradycardia at 59 beats per. Repeat EKG also shows to T wave inversion in V3 and V4. Troponin is negative. 1. Atypical chest pain: Patient is being admitted in PCU. Serial troponin enzymes. Will repeat EKG after 4 hours. If troponin is positive, will consult cardiology for possible heart cath; if not then treadmill nuclear stress test tomorrow a.m. Nuclear stress test in October 2016 was reported within normal limit. Patient might have chest pain from GI origin, dyspepsia. Protonix 40 mg IV daily. If acute coronary syndrome or stress test normal will need follow-up with GI for EGD. 2. Cardiac conditions: Patient has history of PACs, PVCs, moderate MVP with moderate MR. Patient follows Dr. Barba. The most recent echo as mentioned below. Echo 12/07/2018 Interpretation Summary Left ventricular systolic function is normal. The estimated ejection fraction is 65 %. The left atrium is mildly enlarged. Mild diffuse mitral valve thickening. Moderate mitral valve prolapse, posterior leaflet Moderate (2+) mitral valve insufficiency. Mild tricuspid valve insufficiency. Mild focal aortic valve calcification. Trivial aortic valve insufficiency. Right ventricular systolic pressure estimated to be 21 mmHg. 3. Chronic constipation with stage IV hemorrhoids: Patient had hemorrhoidectomy in April [address] Cr Rojas. 4. DVT prophylaxis: Lovenox 40 mg subcu daily. Living will/advanced directive/end of life care: Patient does have living will or advanced directive. Patient's power of associate attorney is her Mr. Blu fox. After discussion of procedures involved with full code, DNR CC arrest and DNR CC, the patient and her agreed for full code. Patient does want artificial life support including intubation, tube feed, ventilator and/chest compression, central venous catheter, vasopressor and DC shock if needed Total time spent in fylo-nw-bhty encounter in discussion of advanced directive 16 minutes. OBSV E&M: 37244 Initial observation care L3 Procedures: 17589 Advncd Care Plan 30 Min
--- NOTE | 2019-09-20 14:04 | EKG12_ITS ---
Test Reason : CP Blood Pressure : / mmHG Vent. Rate : 075 BPM Atrial Rate : 075 BPM P-R Int : 158 ms QRS Dur : 074 ms QT Int : 390 ms P-R-T Axes : 042 056 080 degrees QTc Int : 435 ms Normal sinus rhythm Possible Left atrial enlargement Nonspecific T wave abnormality Abnormal ECG Confirmed by MICHAEL TERAN, CHRISTIE ([id number]), research editor CALISTA NAYLOR ([id number]) on 09/25/2019 10:52:37 AM Referred By: CD Confirmed By:CHRISTIE RODRIGUEZ MD
[2019-09-20 14:47] LABS: Magnesium 2.2 mg/dL (1.6-2.6)
[2019-09-20] MEDS: 0.9% Normal Saline 1,000 ML 100 ML IV (15:45)
[2019-09-20] MEDS: Enoxaparin 40 MG/0.4 ML Syringe SC (15:48)
[2019-09-20] MEDS: MELATONIN 3 MG TABLET PO (23:06)
[2019-09-20] MEDS: Acetaminophen 325 MG Tablet 650 MG PO (23:09)
[2019-09-21] VITALS (7 sets, daily range): BP systolic 101–116; BP diastolic 57–68; PULSE 65–82; RESP 18; TEMP 36.6–37.1; O2SAT 95–96
--- NOTE | 2019-09-21 05:55 | EKG12_ITS ---
Test Reason : AM EKG Blood Pressure : / mmHG Vent. Rate : 063 BPM Atrial Rate : 063 BPM P-R Int : 168 ms QRS Dur : 084 ms QT Int : 434 ms P-R-T Axes : 029 056 062 degrees QTc Int : 444 ms Normal sinus rhythm Nonspecific T wave abnormality Abnormal ECG When compared with ECG of 20-SEP-2019 14:06, MANUAL COMPARISON REQUIRED, DATA IS UNCONFIRMED Confirmed by MICHAEL TERAN, CHRISTIE ([id number]), metropolitan editor CALISTA NAYLOR ([id number]) on 09/25/2019 11:01:37 AM Referred By: DR KHAN Confirmed By:CHRISTIE RODRIGUEZ MD
[2019-09-21 06:37] LABS: Cholesterol 203 mg/dL (200); High Density Lipoprotein 43 mg/dL; Thyroid Stim Hormone (TSH) 2.27 uIU/mL (0.358-3.74); Triglycerides 148 mg/dL; Very Low Density Lipoprotein 30 mg/dL (5-40)
[2019-09-21] MEDS: Enoxaparin 40 MG/0.4 ML Syringe SC (09:12)
[2019-09-21] MEDS: OFLOXACIN 5 ML DROPS LEFT EYE (09:13)
--- NOTE | 2019-09-21 10:45 | STRESSREP_ITS ---
Stress Test Report Date: 09/21/2019 Procedure: Exercise tolerance test/imaging study Indications: Chest pain Consent: Per the patient Procedure: The patient exercised on a Da protocol for 5 minutes and 59 seconds achieving a peak heart rate of 136 bpm (91% predicted maximal heart rate) with a peak blood pressure 152/78 mmHg and a peak MET capacity of 7 METs. The baseline ECG demonstrated normal sinus rhythm. The peak exercise ECG demonstrated no significant ST-T changes. EKG during recovery revealed no significant ST-T changes [There were no cardiac dysrhythmias pretest, during exercise, or recovery]. The functional capacity was considered normal for age. There was [no complaint of chest discomfort during exercise or recovery]. The examination was discontinued secondary to dyspnea. Impression: 1. Technically adequate (percent predicted maximal heart rate greater than 85%) exercise tolerance test 2. Stress test is negative for exercise-induced EKG changes of ischemia 3. The test test is negative for exercise-induced chest pain 4. Functional capacity is normal for age 5. Nuclear images pending Myocardial perfusion imaging study: Technique: The patient was injected with 11.5 mCi of technetium 99m Cardiolite and subsequently rest SPECT Cardiolite nuclear imaging was obtained in the horizontal long, vertical long, and short axis views. The patient exercised on a Da protocol. Please see above for details. The patient was injected with 35.2 mCi of technetium 99m Cardiolite and subsequently stress SPECT Cardiolite nuclear imaging was obtained in the horizontal long, vertical long, and short axis views. A gated Cardiolite study at peak stress was obtained. Interpretation: Rest and stress SPECT Cardiolite nuclear imaging status post realignment, normalization, and attenuation correction, demonstrates overall normal myocardial radioisotope uptake on the rest and stress images. There is no evidence of significant ischemia or infarction.. The gated Cardiolite study demonstrates no significant regional wall motion abnormalities. The reported LVEF is greater than 70 %. Impression: 1. There is no evidence of significant ischemia or infarction. 2. The gated Cardiolite study reports an LVEF of greater than 70 %. This note was generated with [employer] software. It may contain incorrect words, spelling, and punctuation that were not noted in checking the note before signing.
--- NOTE | 2019-09-21 11:28 | PCM.DC ---
- Discharge Diagnoses Current Active Problems: Current Active and Chronic Problems (Last Reviewed 06/11/19 @ 09:53 by Serene Ledezma) Atypical chest pain (Acute) You will use the following diet at home:: Cardiac Your food should be the consistency of: Regular Discharge Activity: May Not Drive Call your doctor if you observe: Fever of 101 or Higher, Numbness or Tingling, Change in Color, Inability to urinate, Inability to have a bowel movement, Using more than one pad per hour, Shortness of breath, Dizziness, Fainting spells, Swelling in the ankles, Chest pain, Prolonged hiccoughing, Increased palpitations (irregular heartbeat) Allergies/Adverse Reactions: Allergies Penicillins Allergy (Verified 09/20/19 11:12) Other Sulfa (Sulfonamide Antibiotics) Allergy (Verified 09/20/19 11:12) Other erythromycin base [Erythromycin Base] Adverse Reaction (Verified 09/20/19 11:12) Nausea Medications to take at Discharge cholecalciferol (vitamin D3) 125 mcg (5,000 unit) capsule 5,000 unit PO DAILY 03/08/19 Alpha Lipoic Acid 200 mg PO DAILY 04/12/19 Gluc/MSM/C/[place]anganes/Prim [Joint Support Complex Softgel] 2 capsule PO BID 04/12/19 Melatonin 0.5 mg PO QHS 04/12/19 Selenium 200 mcg PO QODAY 04/12/19 biotin 1 mg capsule 1 mg PO DAILY 06/11/19 Nadolol 10 mg PO DAILY 09/20/19 Ofloxacin 0.3% [Floxin 0.3% Otic] 1 drp OTIC (EAR) 4X/DAY 09/20/19 Phytonadione (Vit K1) [Vitamin K] 100 mcg PO DAILY 09/20/19 Psyllium Husk/Aspartame [Metamucil Powder] 1,320 gm PO BID 09/20/19 Potassium Chloride [K-Dur] 10 meq PO DAILY #20 tab 09/21/19 The following prescriptions were given: Potassium Chloride [K-Dur] 10 meq PO DAILY #20 tab Transmission Status: [facility]ending [id number] Primary Care Physician: Chalo Rojas III, MD [Primary Care Provider] - Please follow up with your Primary Care Physician in: In 1 to 2 weeks to check potassium Test Results: Test results from this visit will be discussed in further detail at your follow-up appointment, if applicable.
--- NOTE | 2019-09-21 11:29 | PCM.DC.SUM ---
Discharge Date and Diagnosis - Problem List Patient Problems: Active and Suspected Problems (Last Reviewed 06/11/19 @ 09:53 by Serene Ledezma) Atypical chest pain (Acute) Date of Admission: 09/20/19 Date of Discharge: 09/21/19 - Primary Discharge Diagnosis Acute Problems: Active Problems (Last Reviewed 06/11/19 @ 09:53 by Serene Ledezma) Atypical chest pain (Acute). Acute coronary syndrome ruled out. - Secondary Discharge Diagnosis Chronic Problems: Chronic Problems (Last Reviewed 06/11/19 @ 09:53 by Serene Ledezma) Chronic constipation (Chronic) Nonrheumatic mitral (valve) prolapse (Chronic) Atrial premature contractions (Chronic) Hospital Course and Treatment Imaging Results: 09/21/19 05:55 Nuclear Stress Test - Treadmil [NM] AM (NON MEDS) Summary of Care Provided: [] The patient is a 69 year old F with history of mitral valve prolapse, PACs and PVCs, follow Dr. Barba came to ER with chest pain. In ED, first EKG shows normal sinus rhythm at 75 bpm, possible LAE with T inversion in lead V3 and V4 but not significant EKG change from previous EKG of April 06, 2018 except sinus bradycardia at 59 beats per. Repeat EKG also shows to T wave inversion in V3 and V4. Troponin is negative. 1. Atypical chest pain: Patient is being admitted in PCU. Serial troponin were negative. EKG did not show significant new ST-T deviation suggestive of ischemia. Nuclear stress test in October 2016 was reported within normal limit. Patient might have chest pain from GI origin, dyspepsia. Protonix 40 mg IV daily. Patient had treadmill nuclear stress test reported no evidence of significant ischemia or infarction. Gated Cardiolite study, EF greater than 70%. Fasting profile shows LDL 130 and HDL 43. TSH normal. 2. Cardiac conditions: Patient has history of PACs, PVCs, moderate MVP with moderate MR. Patient follows Dr. Barba. The most recent echo as mentioned below. Echo 12/07/2018 Interpretation Summary Left ventricular systolic function is normal. The estimated ejection fraction is 65 %. The left atrium is mildly enlarged. Mild diffuse mitral valve thickening. Moderate mitral valve prolapse, posterior leaflet Moderate (2+) mitral valve insufficiency. Mild tricuspid valve insufficiency. Mild focal aortic valve calcification. Trivial aortic valve insufficiency. Right ventricular systolic pressure estimated to be 21 mmHg. 3. Chronic constipation with stage IV hemorrhoids: Patient had hemorrhoidectomy in April [address] Cr Rojas. 4. DVT prophylaxis: Lovenox 40 mg subcu daily. Living will/advanced directive/end of life care: Patient does have living will or advanced directive. Patient's power of trust and estates attorney is her Mr. Blu fox. After discussion of procedures involved with full code, DNR CC arrest and DNR CC, the patient and her agreed for full code. Discharge medication reconciliation done. Discharge follow-up instructions completed. Discharge process discussed with the patient and all questions were answered to patient's satisfaction. Patient was given a prescription for potassium 10 mEq daily total 20 tablets and advised follow-up BMP in 1 to 2 weeks with PCP, Dr. Chalo Rojas. Patient was also advised Protonix/other PPI once daily but she does not want prescription nosotoxin to PCP first. Total time spent, exact 35 minutes on discharge meds reconciliation, examination, coordination of care with nurses and ancillary staff, review of imaging and blood test and discussion with the patient on follow-up instructions Patient Problems: Active and Suspected Problems (Last Reviewed 06/11/19 @ 09:53 by Serene Ledezma) Atypical chest pain (Acute) - Physical Exam Vitals/I&O's: Vital Signs Temp Pulse Resp BP Pulse Ox 97.8 F 72 18 113/68 95 09/21/19 06:57 09/21/19 07:00 09/21/19 06:57 09/21/19 06:57 09/21/19 07:05 Oxygen Delivery Method Room Air Weight: 139 lb 15.896 oz Body Mass Index (BMI) 22.6 Intake and Output for Last 24 Hours 09/19/19 09/20/19 09/21/19 23:59 23:59 23:59 Intake Total 828.33 / 828.33 1081.67 / 1081.67 Balance 828.33 / 828.33 1081.67 / 1081.67 Laboratory Results 09/20/19 11:30: WBC 4.7, RBC 4.71, Hgb 14.5, Hct 43.9, MCV 93.2, MCH 30.8, MCHC 33.0, RDW Std Deviation 41.7, RDW Coeff of Ramón 12.1, Plt Count 194, MPV 9.6, Immature Gran % (Auto) 0.200, Neut % (Auto) 73.6 H, Lymph % (Auto) 18.5 L, [place] % (Auto) 7.5, Eos % (Auto) 0.0, Baso % (Auto) 0.2, Absolute Neuts (auto) 3.4, Absolute Lymphs (auto) 0.86, Nucleated RBC % 0 09/20/19 11:30: Sodium 140, Potassium 3.4 L, Chloride 102, Carbon Dioxide 30.0, Anion Gap 8, BUN 7, Creatinine 0.66, Estim Creat Clear Calc 48.30, Est GFR (MDRD) Af Amer 113, Est GFR (MDRD) Non-Af 94, BUN/Creatinine Ratio 10.6, Glucose 158 H, Calcium 9.3, Troponin I < 0.015 09/20/19 11:30: D-Dimer Quant (PE/DVT) 0.47 09/20/19 14:16: Magnesium 2.2, Troponin I < 0.015 09/20/19 17:44: Troponin I < 0.015 09/21/19 05:30: Triglycerides 148, Cholesterol 203 H, LDL Cholesterol 130, VLDL Cholesterol 30, HDL Cholesterol 43, TSH 2.27 Current Medications Acetaminophen (Tylenol) 650 mg PO Q6H PRN PRN PRN Reason: Pain Score 1-10/Temp > 100.7 F Last Admin: 09/20/19 23:09 Dose: 325 mg Documented by: Al Hydroxide/Mg Hydroxide (Mylanta Ii) 30 ml PO Q6H PRN PRN PRN Reason: Gastric Burning Albuterol Sulfate (Ventolin Aerosols) 2.5 mg INHALATION Q2H PRN PRN PRN Reason: SOB/Wheezing Dextrose (D50w Syringe) 0 gm IV X1 PRN; Protocol PRN Reason: Hypoglycemia Enoxaparin Sodium (Lovenox) 40 mg SC DAILY [facility] Last Admin: 09/21/19 09:12 Dose: 40 mg Documented by: Glucagon () 1 mg IM .X1 PRN PRN Reason: Hypoglycemia Pantoprazole Sodium 40 mg/ (Sodium Chloride) 110 mls @ 330 mls/hr IV Q24 [facility] Last Infusion: 09/21/19 09:59 Dose: Infused Documented by: Melatonin (Melatonin) 3 mg PO QHS PRN PRN Last Admin: 09/20/19 23:06 Dose: 3 mg Documented by: Morphine Sulfate () 2 mg IV Q3H PRN PRN PRN Reason: Pain Score 6-10/10 Nitroglycerin (Nitrostat) 0.4 mg SUBLINGUAL Q5M PRN PRN Reason: CARDIAC/CHEST PAIN Ofloxacin (Ofloxacin) 0 ml LEFT EYE 4X/DAY [facility] Last Admin: 09/21/19 09:13 Dose: 1 ml Documented by: Ondansetron HCl (Zofran) 4 mg IV Q8H PRN PRN PRN Reason: NAUSEA/VOMITING Oxycodone HCl (Oxyir) 5 mg PO Q4H PRN PRN PRN Reason: Pain Score 4-5/10 Senna/Docusate Sodium (Senokot-S, [place]-Colace) 2 tablet PO BID PRN PRN PRN Reason: Constipation Sodium Chloride () 10 - 40 ml IV UD PRN PRN Reason: SALINE FLUSH Discharge Activity: May Not Drive Call your doctor if you observe: Fever of 101 or Higher, Numbness or Tingling, Change in Color, Inability to urinate, Inability to have a bowel movement, Using more than one pad per hour, Shortness of breath, Dizziness, Fainting spells, Swelling in the ankles, Chest pain, Prolonged hiccoughing, Increased palpitations (irregular heartbeat) Home Medications: Medications to take at Discharge cholecalciferol (vitamin D3) 125 mcg (5,000 unit) capsule 5,000 unit PO DAILY 03/08/19 Alpha Lipoic Acid 200 mg PO DAILY 04/12/19 Gluc/MSM/C/[place]/Manganes/Prim [Joint Support Complex Softgel] 2 capsule PO BID 04/12/19 Melatonin 0.5 mg PO QHS 04/12/19 Selenium 200 mcg PO QODAY 04/12/19 biotin 1 mg capsule 1 mg PO DAILY 06/11/19 Nadolol 10 mg PO DAILY 09/20/19 Ofloxacin 0.3% [Floxin 0.3% Otic] 1 drp OTIC (EAR) 4X/DAY 09/20/19 Phytonadione (Vit K1) [Vitamin K] 100 mcg PO DAILY 09/20/19 Psyllium Husk/Aspartame [Metamucil Powder] 1,320 gm PO BID 09/20/19 Potassium Chloride [K-Dur] 10 meq PO DAILY #20 tab 09/21/19 Following Prescrptions Were Given to Patient: Potassium Chloride [K-Dur] 10 meq PO DAILY #20 tab Transmission Status: [id number] Primary Care Physician: Chalo Rojas III, MD [Primary Care Provider] - Please follow up with your Primary Care Physician in: In 1 to 2 weeks to check potassium Medical Necessity - Tobacco Use Smoking Status: Never smoker Meaningful Use Info Meaningful Use Diagnoses (Choose all that apply): None applicable OBSV E&M: 87857 Observation care discharge
--- NOTE | 2019-09-21 12:55 | CHAPLAIN ---
Type of Pastoral Visit _x__ Initial Visit ___ Follow-up Visit ___ On-call Visit ___ General Patient Visit ___ Spiritual Assessment ___ Family Conference ___ Bereavement ___ Rapid Response ___ Code Blue ___ Other (describe below) Pastoral Care Referral From _x__ Patient ___ Family ___ Nurse ___ Physician ___ Shoder Filler ___ [employer] Presser ___ Other (describe below) Sacrament/Intervention _x__ Active listening ___ Anointing ___ Yazidism ___ Bereavement ___ Communion ___ Melinda exploration ___ ___ Life review ___ Prayer ___ Reconciliation ___ Sacrament of Sick _x__ Supportive presence ___ Wedding ___ Other (describe below) Pastoral Comments
== END 2019-09-21 13:05 | disposition home or self-care (01) ==
LOC: ED 11:44 → PCU 13:16
PROVIDERS: Admitting Provider Internal Medicine; Emergency Provider Emergency Medicine; PCP Family Medicine; Visit Provider Internal Medicine
DX: R07.89 Other chest pain (principal); E78.00 Pure hypercholesterolemia, unspecified; K59.09 Other constipation; M19.90 Unspecified osteoarthritis, unspecified site; R94.31 Abnormal electrocardiogram [ECG] [EKG]
CPT/HCPCS: 36415; 71045; 78452; 80048; 80061; 83735; 84443; 84484; 85025; 85379; 93005; 93017; 96361; 96365; 96366; 96372; 99218; 99251; 99285; A9500; J7030; A4216; G0378; G0463

== ENCOUNTER 2019-11-28 15:46 | Emergency (ER) | payer MEDICARE, OTHER, SELFPAY ==
[2019-11-16 11:01] VITALS: BMI 22.6
[2019-11-28 15:47] VITALS: BP 131/86; PULSE 61; RESP 16; TEMP 36.5; O2SAT 98; BMI 23.4
--- NOTE | 2019-11-28 16:06 | CT_ITS ---
STUDY: CT BRAIN WITHOUT CONTRAST REASON FOR EXAM: Female, 69 years old. SAAVEDRA X 3 DAYS. RADIATION DOSAGE (If Supplied By Facility): CTDIvol = ( 44.99 ) mGy, DLP = ( 779.24 ) mGycm TECHNIQUE: Transaxial CT imaging of the brain was performed without administration of intravenous contrast material. Individualized dose optimization techniques were used for this CT. COMPARISON: No relevant priors. FINDINGS: Normal soft tissue structures. Normal calvarium. There is mild cerebral atrophy with widening of the extra-axial spaces and ventricular dilatation. Normal white matter tracts of the cerebral hemispheres. Chronic lacunar infarct of the right putamen and left thalamus. Normal brainstem. Normal cerebellum. There is no intracranial hemorrhage. There are no findings of an acute ischemic infarction. Normal visualized paranasal sinuses. CT/Brain/Head without Contrast IMPRESSION: Chronic involutional changes of the brain. Electronically Signed: Rohit Butler MD at 17:16 EDT Tel , Service support ,
--- NOTE | 2019-11-28 16:08 | ED.VIS.GEN ---
History of Present Illness Chief Complaint: Headache Informant: Patient Onset: Days - 3 days Context: Gradual Onset Timing: Intermittent Current Severity: Mild Maximum Severity: Moderate Narrative: Patient presents with 3-day history of waxing and waning headache. She points to the bilateral parietal areas and describes a gnawing type of pain. She denies light sensitivity, nausea, or vomiting. She denies head injury. She denies URI symptoms. She reports rarely getting headaches. She called her PCPs office who felt she needed to be evaluated the emergency room. - Past Medical History (1) Premature ventricular contraction Status: Chronic (2) Atrial premature contractions Status: Chronic Past Medical History - Allergies and Home Meds Allergies/Adverse Reactions: Allergies Penicillins Allergy (Verified 11/28/19 15:49) Other Sulfa (Sulfonamide Antibiotics) Allergy (Verified 11/28/19 15:49) Other erythromycin base [Erythromycin Base] Adverse Reaction (Verified 11/28/19 15:49) Nausea Primary Care Physician: Chalo Rojas III, MD [Primary Care Provider] - Prior records reviewed: Yes Surgical History: - - Two hammertoe surgeries with no previous complications from anesthesia Smoking Status: Never smoker Review of Systems General: Denies: Chills, Fever Eyes: Denies: Visual changes - bilaterally ENT: Denies: Bilateral ear pain Cardiovascular: Denies: Chest pain Respiratory: Denies: Dyspnea, Cough Gastrointestinal: Denies: Abdominal pain, Nausea, Vomiting, Diarrhea Genitourinary: Denies: Dysuria Musculoskeletal: Denies: Neck pain, Back pain Neurological: Reports: Headache. Denies: Weakness, Parasthesia Hematologic: Denies: Easy bruising, Easy bleeding Allergy: Denies: Uticaria Physical Exam Vital Signs/Narrative: Vital Signs Temp Pulse Resp BP Pulse Ox 11/28/19 15:47 97.7 F L 61 16 131/86 H 98 Inital Vital Signs reviewed: Yes General: Well nourished, Well developed Head: Normocephalic ENT: Moist mucous membranes Neck: Supple Cardiovascular: Regular rate, Regular rhythm Respiratory: No distress, CTA bilaterally Abdomen: Soft, Nontender Extremities: Nontender Skin: Normal color, No rash Neurological: Alert, Oriented x3, Normal Strength, Normal Sensation Psychological: Normal affect Diagnostic/Tx/Re-eval Impressions Brain CT 11/28/19 16:06 IMPRESSION: Chronic involutional changes of the brain. Electronically Signed: Rohit Butler MD at 17:16 EDT Tel , Service support , 11/28/19 16:06 Brain/Head without Contrast [CT] Stat Laboratory Results 11/28/19 11/28/19 16:20 16:20 WBC 6.3 RBC 4.55 Hgb 14.5 Hct 43.0 MCV 94.5 MCH 31.9 MCHC 33.7 RDW Std Deviation 44.1 H RDW Coeff of Ramón 12.7 Plt Count 209 MPV 9.6 Immature Gran % (Auto) 0.200 Neut % (Auto) 75.9 H Lymph % (Auto) 17.1 L [place] % (Auto) 6.5 Eos % (Auto) 0.0 Baso % (Auto) 0.3 Absolute Neuts (auto) 4.8 Absolute Lymphs (auto) 1.08 Nucleated RBC % 0 Sodium 143 Potassium 3.8 Chloride 107 Carbon Dioxide 33.0 H Anion Gap 3 L BUN 6 L Creatinine 0.74 Estim Creat Clear Calc 46.43 Est GFR (MDRD) Af Amer 100 Est GFR (MDRD) Non-Af 83 BUN/Creatinine Ratio 8.2 L Glucose 98 Calcium 9.4 - Medical Decision Making Patient was given IV fluids along with 50 mg of IV Toradol. On repeat evaluation she does report improvement. Test results are discussed with her. At this time I advised her I do not see a serious cause for her headaches. She will take Tylenol or ibuprofen at home and monitor for any kind of eyestrain. She does report recently having her cataracts fixed and states that she did not get the correct glasses after her surgery. I did recommend she follow-up with her eye doctor as well. ED Disposition - Plan for ED Patient: Disposition: Home or Assisted Living Diagnosis: Cephalgia Instructions: ED Headache Unspecified Referrals: Chalo Rojas III, MD [Primary Care Provider] - 1 Week if not improving
[2019-11-28] MEDS: Ketorolac 15 MG/ML Vial IV (16:19)
[2019-11-28 16:28] LABS: Absolute Lymphocyte Count 1.08 X10^3/uL (0.83-4.51); Absolute Neutrophil Count 4.8 X10^3/uL (2.0-7.7); Basophil# 0.02 X10^3/uL; Basophil% 0.3 % (0-1); Hemoglobin 14.5 g/dL (12.0-15.0); Lymphocyte # 1.08 X10^3/ul (4.0); Lymphocyte % 17.1 % (19-41); Mean Corp Hgb Conc 33.7 g/dL (32-36); Mean Corpuscular Hgb 31.9 pg (27.0-32.0); Mean Corpuscular Volume 94.5 fL (81-99); Mean Platelet Vol. 9.6 fl (6.2-12.0); Monocyte# 0.41 X10^3/uL; Monocyte% 6.5 % (0-10); NRBC Flagged by Analyzer 0 % (0-5); Neutrophil % 75.9 % (47-70); Platelet Count 209 K/mm3 (150-450); RBC Distribution Width CV 12.7 % (11.6-14.6); RBC Distribution Width SD 44.1 fl (35.1-43.9); Red Blood Count 4.55 M/mm3 (4.2-5.4); White Blood Count 6.3 K/mm3 (4.4-11.0)
[2019-11-28 16:40] LABS: Anion Gap 3 (5-15); BUN 6 mg/dL (7-18); BUN/Creat Ratio 8.2 RATIO (10-20); Calcium,Total 9.4 mg/dL (8.5-10.1); Chloride 107 mmol/L (98-107); Creatinine, Serum 0.74 mg/dL (0.55-1.02); EST Glomerular Filtration Rate 83 mL/min (>60); Est Glom Filt Rate - Afr Amer 100 mL/min (>60); Estimated Creatinine Clearance 46.43 ml/min; Glucose 98 mg/dL (74-106); Potassium 3.8 mmol/L (3.5-5.1); Sodium Level 143 mmol/L (136-145)
[2019-11-28 17:54] VITALS: BP 129/77; PULSE 62; RESP 15; O2SAT 98
== END 2019-11-28 17:56 | disposition home or self-care (01) ==
PROVIDERS: Emergency Provider Emergency Medicine; PCP Family Medicine
DX: R51 Headache (principal); I49.1 Atrial premature depolarization; I49.3 Ventricular premature depolarization
CPT/HCPCS: 70450; 80048; 85025; 96361; 96374; 99283; J7040; A4216

== ENCOUNTER → 2019-11-29 17:48 | Outpatient (CLI) | payer MEDICARE, OTHER, SELFPAY ==
[2019-11-28 15:47] VITALS: BMI 23.4
== END ==
PROVIDERS: PCP Family Medicine; Referring Provider Nurse Practitioner Primary Care; Visit Provider Nurse Practitioner Primary Care
DX: Z03.818 Encounter for observation for suspected exposure to other biological agents ruled out (principal)
CPT/HCPCS: 87635; 94799; U0003

== ENCOUNTER → 2019-12-11 09:38 | Outpatient (CLI) | payer MEDICARE, OTHER, SELFPAY ==
[2019-11-16 11:01] VITALS: BMI 22.6
[2019-11-28 15:47] VITALS: BMI 23.4
--- NOTE | 2019-12-11 09:38 | ECHOD_ITS ---
Reason For Study: MITRAL VALVE PROLAPSE Procedure This was a 2D Doppler, Color Flow transthoracic echocardiogram. Exam performed in department. Left Ventricle Normal LV size. Left ventricular systolic function is normal. The estimated ejection fraction is 70 %. No evidence for diastolic dysfunction. No regional wall motion abnormalities noted. Right Ventricle Normal RV size. Normal systolic function. Atria The left atrium is mildly enlarged. Normal right atrium. No doppler evidence for ASD. Mitral Valve There is no mitral annular calcification. Mild diffuse mitral valve thickening. Moderate mitral valve prolapse, posterior leaflet. Mild (1+) mitral valve insufficiency. Tricuspid Valve Normal tricuspid valve. Trivial tricuspid valve insufficiency. Right ventricular systolic pressure estimated to be 23 mmHg. Aortic Valve Trisinus/trileaflet aortic valve. Normal aortic valve. Trivial aortic valve insufficiency. Pulmonic Valve The pulmonic valve is not well visualized. Great Vessels Normal sized aortic root. Pericardium/Pleural No pericardial effusion. MMode/2D Measurements & Calculations LVIDd: 3.7 cm IVSd: 1.2 cm Ao root diam: 3.3 cm LVIDs: 2.5 cm LVPWd: 1.1 cm RVDd: 3.3 cm FS: 32.8 % LAV(MOD-bp): 53.2 ml LVAd ap4: 25.8 cm2 SV(MOD-sp4): 54.6 ml LAV(MOD-bp) Indexed: 30.9 ml/m2 EDV(MOD-sp4): 78.7 ml LAV(MOD-sp2): 50.9 ml EDV(sp4-el): 81.0 ml LAV(MOD-sp4): 46.3 ml LVAs ap4: 13.2 cm2 ESV(MOD-sp4): 24.1 ml ESV(sp4-el): 24.4 ml EF(MOD-sp4): 69.4 % EF(sp4-el): 69.8 % SV(sp4-el): 56.6 ml LA A4 area: 16.3 cm2 LA dimension(2D): 3.8 cm RA A4 area: 12.0 cm2 Time Measurements MV dec time: 0.23 sec Doppler Measurements & Calculations MV E max jadon: 65.7 cm/sec Lat Peak E' Jadon: 8.5 cm/sec Med Peak E' Jadon: 5.5 cm/sec MV A max jadon: 57.4 cm/sec E/E' lat: 7.8 E/E' med: 12.0 MV E/A: 1.1 Ao V2 max: 126.1 cm/sec AI max jadon: 314.8 cm/sec LV V1 max: 98.8 cm/sec Ao max P.4 mmHg AI max P.6 mmHg LV V1 max P.9 mmHg AI dec slope: 141.2 cm/sec2 AI P1/2t: 653.3 msec PA V2 max: 86.5 cm/sec TR max jadon: 225.4 cm/sec TR max P.3 mmHg Interpretation Summary Left ventricular systolic function is normal. The estimated ejection fraction is 70 %. The left atrium is mildly enlarged. Moderate mitral valve prolapse, posterior leaflet Mild diffuse mitral valve thickening. Mild (1+) mitral valve insufficiency. Trivial tricuspid valve insufficiency. Trivial aortic valve insufficiency. Right ventricular systolic pressure estimated to be 23 mmHg. No evidence for diastolic dysfunction. Ordering Physician: Dayne Barba Referring Physician: AIDEN ANDREW Performed By: Cherie Schofield RDCS
== END ==
PROVIDERS: PCP Family Medicine; Referring Provider Internal Medicine Cardiovascular Disease; Visit Provider Internal Medicine Cardiovascular Disease
DX: I34.1 Nonrheumatic mitral (valve) prolapse (principal); I49.1 Atrial premature depolarization; I49.3 Ventricular premature depolarization; R07.89 Other chest pain
CPT/HCPCS: 93306

== ENCOUNTER 2020-01-31 06:00 | Outpatient (RCR) | payer SELFPAY ==
[2019-04-19 12:31] VITALS: BMI 22.6
== END 2020-02-02 23:59 ==
LOC: CR 06:00
PROVIDERS: Family Provider Family Medicine; PCP Family Medicine; Referring Provider Internal Medicine Cardiovascular Disease; Visit Provider Internal Medicine Cardiovascular Disease
DX: Z00.00 Encounter for general adult medical examination without abnormal findings (principal)

== ENCOUNTER 2020-02-26 06:00 | Outpatient (RCR) | payer SELFPAY | END 2020-03-03 23:59 | LOC: CR 06:00 | PROVIDERS: Family Provider Family Medicine; PCP Family Medicine; Referring Provider Internal Medicine Cardiovascular Disease; Visit Provider Internal Medicine Cardiovascular Disease | DX: Z00.00 Encounter for general adult medical examination without abnormal findings (principal) ==

== ENCOUNTER 2020-04-03 08:00 | Outpatient (RCR) | payer SELFPAY ==
[2020-02-19 11:04] VITALS: BMI 24.0
== END 2020-04-03 23:59 ==
LOC: CR 08:00
PROVIDERS: Family Provider Family Medicine; PCP Family Medicine; Referring Provider Internal Medicine Cardiovascular Disease; Visit Provider Internal Medicine Cardiovascular Disease
DX: Z00.00 Encounter for general adult medical examination without abnormal findings (principal)

== ENCOUNTER 2020-05-01 08:00 | Outpatient (RCR) | payer SELFPAY ==
[2020-02-19 11:04] VITALS: BMI 24.0
== END 2020-05-04 23:59 ==
LOC: CR 08:00
PROVIDERS: PCP Family Medicine; Visit Provider Internal Medicine Cardiovascular Disease
DX: Z00.00 Encounter for general adult medical examination without abnormal findings (principal)

== ENCOUNTER 2020-05-29 08:00 | Outpatient (RCR) | payer SELFPAY ==
[2020-02-19 11:04] VITALS: BMI 24.0
== END 2020-06-01 23:59 ==
LOC: CR 08:00
PROVIDERS: PCP Family Medicine; Visit Provider Internal Medicine Cardiovascular Disease
DX: Z00.00 Encounter for general adult medical examination without abnormal findings (principal)

== ENCOUNTER 2020-07-01 08:00 | Outpatient (RCR) | payer SELFPAY ==
[2020-02-19 11:04] VITALS: BMI 24.0
== END 2020-07-02 23:59 ==
LOC: CR 08:00
PROVIDERS: PCP Family Medicine; Visit Provider Internal Medicine Cardiovascular Disease
DX: Z00.00 Encounter for general adult medical examination without abnormal findings (principal)

== ENCOUNTER 2020-07-31 08:00 | Outpatient (RCR) | payer SELFPAY ==
[2020-02-19 11:04] VITALS: BMI 24.0
== END 2020-08-01 23:59 ==
LOC: CR 08:00
PROVIDERS: PCP Family Medicine; Visit Provider Internal Medicine Cardiovascular Disease
DX: Z00.00 Encounter for general adult medical examination without abnormal findings (principal)

== ENCOUNTER 2020-08-28 08:00 | Outpatient (RCR) | payer SELFPAY ==
[2020-02-19 11:04] VITALS: BMI 24.0
== END 2020-09-01 23:59 ==
LOC: CR 08:00
PROVIDERS: PCP Family Medicine; Visit Provider Internal Medicine Cardiovascular Disease
DX: Z00.00 Encounter for general adult medical examination without abnormal findings (principal)

== ENCOUNTER 2020-09-30 08:00 | Outpatient (RCR) | payer SELFPAY ==
[2020-02-19 11:04] VITALS: BMI 24.0
== END 2020-10-01 23:59 ==
LOC: CR 08:00
PROVIDERS: PCP Family Medicine; Referring Provider Internal Medicine Cardiovascular Disease; Visit Provider Internal Medicine Cardiovascular Disease
DX: Z00.00 Encounter for general adult medical examination without abnormal findings (principal)

== ENCOUNTER 2020-10-30 08:00 | Outpatient (RCR) | payer SELFPAY ==
[2020-02-19 11:04] VITALS: BMI 24.0
== END 2020-11-01 23:59 ==
LOC: CR 08:00
PROVIDERS: PCP Family Medicine; Referring Provider Internal Medicine Cardiovascular Disease; Visit Provider Internal Medicine Cardiovascular Disease
DX: Z00.00 Encounter for general adult medical examination without abnormal findings (principal)

== ENCOUNTER 2020-12-02 08:00 | Outpatient (RCR) | payer SELFPAY ==
[2020-02-19 11:04] VITALS: BMI 24.0
== END 2020-12-02 23:59 ==
LOC: CR 08:00
PROVIDERS: PCP Family Medicine; Referring Provider Internal Medicine Cardiovascular Disease; Visit Provider Internal Medicine Cardiovascular Disease
DX: Z00.00 Encounter for general adult medical examination without abnormal findings (principal)

== ENCOUNTER 2021-01-01 08:00 | Outpatient (RCR) | payer SELFPAY ==
[2020-12-03 00:24] VITALS: BMI 24.0
== END 2021-01-01 23:59 ==
LOC: CR 08:00
PROVIDERS: PCP Family Medicine; Referring Provider Internal Medicine Cardiovascular Disease; Visit Provider Internal Medicine Cardiovascular Disease
DX: Z00.00 Encounter for general adult medical examination without abnormal findings (principal)

== ENCOUNTER 2021-01-29 08:00 | Outpatient (RCR) | payer SELFPAY ==
[2021-01-02 00:18] VITALS: BMI 24.0
== END 2021-02-01 23:59 ==
LOC: CR 08:00
PROVIDERS: PCP Family Medicine; Referring Provider Internal Medicine Cardiovascular Disease; Visit Provider Internal Medicine Cardiovascular Disease
DX: Z00.00 Encounter for general adult medical examination without abnormal findings (principal)

== ENCOUNTER → 2021-02-04 11:15 | Outpatient (CLI) | payer MEDICARE, OTHER, SELFPAY ==
--- NOTE | 2021-02-04 11:17 | US_ITS ---
STUDY: THYROID ULTRASOUND REASON FOR EXAM: Female, 70 years old. thyroid nodules TECHNIQUE: Ultrasound evaluation of the thyroid was performed with real-time and static pablo-scale imaging. COMPARISON: 02.03.18. FINDINGS: RIGHT LOBE: The right lobe of the thyroid gland measures 5x2.4x2.4 cm. There is a homogeneous echotexture. There are nodules. Superior nodule is 17 x 16 x 19 mm. The lesion is solid with regular margins and intra-nodular doppler flow. Mid nodule is 16 x 14 mm. The lesion is solid with regular margins and intra-nodular doppler flow. Hypoechoic nodule is 4 x 4 mm.The lesion is solid / cystic with regular margins and kadi nodular doppler flow LEFT LOBE: The left lobe of the thyroid gland measures 5.4 x 1.8 x 2 cm. There is a homogeneous echotexture. There are no demonstrated solid, cystic or complex lesions. ISTHMUS: The isthmus measures 2 mm. US/Thyroid IMPRESSION: There are 3 stable RIGHT nodules. This nodule is mixed cystic and solid, hyperechoic or isoechoic, [id number], smoothly marginated and contains no echogenic foci. TI-RADS points: 3. TI-RADS category: TR3. This nodule is mildly suspicious. Recommend follow-up thyroid ultrasounds at 2 and 4 years. Electronically Signed: Harshil Harper MD at 18:35 EDT , Service support ,
== END ==
PROVIDERS: PCP Family Medicine; Referring Provider Surgery; Visit Provider Surgery
DX: E04.1 Nontoxic single thyroid nodule (principal)
CPT/HCPCS: 76536

== ENCOUNTER 2021-03-03 08:00 | Outpatient (RCR) | payer SELFPAY ==
[2021-02-02 00:14] VITALS: BMI 24.0
== END 2021-03-03 23:59 ==
LOC: CR 08:00
PROVIDERS: PCP Family Medicine; Referring Provider Internal Medicine Cardiovascular Disease; Visit Provider Internal Medicine Cardiovascular Disease
DX: Z00.00 Encounter for general adult medical examination without abnormal findings (principal)

== ENCOUNTER 2021-04-02 08:00 | Outpatient (RCR) | payer SELFPAY ==
[2021-03-04 00:19] VITALS: BMI 24.0
== END 2021-04-03 23:59 ==
LOC: CR 08:00
PROVIDERS: PCP Family Medicine; Referring Provider Internal Medicine Cardiovascular Disease; Visit Provider Internal Medicine Cardiovascular Disease
DX: Z00.00 Encounter for general adult medical examination without abnormal findings (principal)

== ENCOUNTER 2021-04-30 08:00 | Outpatient (RCR) | payer SELFPAY | END 2021-05-04 23:59 | LOC: CR 08:00 | PROVIDERS: PCP Family Medicine; Referring Provider Internal Medicine Cardiovascular Disease; Visit Provider Internal Medicine Cardiovascular Disease | DX: Z00.00 Encounter for general adult medical examination without abnormal findings (principal) ==

== ENCOUNTER 2021-05-26 08:00 | Outpatient (RCR) | payer SELFPAY | END 2021-06-01 23:59 | LOC: CR 08:00 | PROVIDERS: PCP Family Medicine; Referring Provider Internal Medicine Cardiovascular Disease; Visit Provider Internal Medicine Cardiovascular Disease | DX: Z00.00 Encounter for general adult medical examination without abnormal findings (principal) ==

== ENCOUNTER 2021-05-29 17:17 | Emergency (ER) | payer MEDICARE, OTHER, SELFPAY ==
[2021-05-29 17:17] VITALS: BP 129/67; PULSE 80; RESP 16; TEMP 35.6; O2SAT 100; BMI 23.3
--- NOTE | 2021-05-29 17:20 | RAD_ITS ---
STUDY: X-RAY XR Forearm 2 Views REASON FOR EXAM: Female, 71 years old. PAIN TECHNIQUE: XR Forearm 2 Views LEFT COMPARISON: None. FINDINGS: There is non-specific soft tissue swelling. There is diffuse demineralization of the osseous structures. Distal radial and ulnar fracture. Volar apex cannulation of the fractures. Fractures are comminuted. RAD/Forearm 2 Views IMPRESSION: Distal radial and ulnar fracture. Electronically Signed: Harshil Harper MD at 18:14 EST ,
[2021-05-29] MEDS: Morphine 4 MG/ML Syringe IM (20:15)
[2021-05-29 20:16] VITALS: RESP 17
[2021-05-29 21:00] VITALS: RESP 18
--- NOTE | 2021-05-29 21:06 | EX.ED.GENINJ ---
HPI History of Present Illness Chief Complaint: Fall Informant: patient Narrative Narrative: Patient had a mechanical slip and fall on icy surface of a slight hill. She fell backwards and caught herself on her left hand. She has left wrist area pain. No other injury. No blood thinners. Never hit her head. Motion or pressing makes it worse. Splint or holding still makes it better. PFSH PFSH Medical History Atrial premature contractions Cardiac murmur Chronic constipation Colles' fracture of right radius Multiple thyroid nodules Nonrheumatic mitral (valve) prolapse Osteoarthritis Premature ventricular contraction Sebaceous cyst Skin lesion Stage IV hemorrhoids Thyroid nodule Home Medications cholecalciferol (vitamin D3) 125 mcg (5,000 unit) capsule 5,000 unit PO DAILY 03/08/19 [History Last Taken 09/19/19] alpha lipoic acid 200 mg PO DAILY 04/12/19 [History Last Taken 09/19/19] melatonin 0.5 mg PO QHS 04/12/19 [History Last Taken 09/19/19] selenium 200 mcg PO QODAY 04/12/19 [History Last Taken 09/19/19] phytonadione (vitamin K1) 100 mcg PO DAILY 09/20/19 [History Last Taken 09/19/19] potassium chloride 10 meq PO DAILY #20 tab 09/21/19 [Rx Last Taken Unknown] biotin 10 mg tablet 10 mg PO DAILY 02/19/20 [History Last Taken Unknown] zinc 50 mg tablet 50 mg PO HS tab 02/19/20 [History Last Taken Unknown] glucosamine 500 mg-msm 100 mg-vit C 20 mz-bfwie-bizr-primrose capsule 3 cap PO DAILY cap 11/19/20 [History Last Taken Unknown] nadolol 20 mg tablet 10 mg PO DAILY #90 tab 12/02/20 [Rx Last Taken Unknown] oxycodone-acetaminophen [Percocet] 1 tab PO Q6H PRN 3 Days #12 tab 05/29/21 [Rx Last Taken Unknown] Allergy/AdvReac Type Severity Reaction Status Date / Time Penicillins Allergy Other Verified 05/29/21 17:19 Sulfa (Sulfonamide Allergy Other Verified 05/29/21 17:19 Antibiotics) erythromycin base AdvReac Nausea Verified 05/29/21 17:19 [Erythromycin Base] Family History Father Hypertension Grandfather Myocardial infarction Respiratory disease Sister Arthritis Autoimmune disorder Grandmother Breast cancer Mother Kidney disease Surgical History H/O foot surgery S/P hemorrhoidectomy S/P thyroid biopsy (~2016) Social History Smoking Status: Never smoker alcohol intake: never substance use type: does not use ROS ROS ED Constitutional Constitutional ED: Denies fever(s) Cardiovascular Cardiovascular: Denies chest pain, palpitations or racing heartbeat Respiratory/Chest Respiratory/Chest: Denies dyspnea Gastrointestinal Gastrointestinal: Denies nausea or vomiting Musculoskeletal Musculoskeletal: Reports other Details: Left wrist pain. See history of present illness. ; Denies back pain or neck pain Integumentary Denies Abrasions or rash Neurologic Neurologic: Denies paresthesias or weakness Hematologic/Lymphatic Hematologic/Lymphatic: Denies easy bleeding or easy bruising EXAM Physical Exam Const Vital Signs: 05/29/21 17:17 05/29/21 19:18 05/29/21 20:16 Temperature 96.0 F L Temperature Source Temporal Pulse Rate 80 Respiratory Rate 16 17 Respiratory Effort Normal Blood Pressure 129/67 H Blood Pressure Mean 87 Pulse Ox 100 Oxygen Delivery Method Room Air Room Air 05/29/21 21:00 Temperature Temperature Source Pulse Rate Respiratory Rate 18 Respiratory Effort Blood Pressure Blood Pressure Mean Pulse Ox Oxygen Delivery Method Room Air Positive well nourished and well developed General Appearance ED: well developed and NAD HEENT atraumatic Resp normal respiratory effort Cardio Rate: regular rate Back/Spine normal to inspection Extremity Extremity Narrative: There is some swelling of the left wrist. No gross deformity. Distal pulses are intact. Sensation is intact. No proximal elbow or distal hand tenderness. Neuro no focal motor deficits and no sensory deficits noted Sensorium / Orientation: alert Psych mental status grossly normal Skin no rashes or lesions noted Skin Narrative: No lacerations punctures or abrasions. PROC Procedures Upper Extremity Splints Upper Extremity Splint: Orthoglass Splint Fabrication: Fabricated Location: Left (Left wrist AP splint short arm see MDM.) MDM MDM MDM Narrative Medical decision making narrative: Patient was given morphine for pain. X-rays do show distal radius and distal ulnar fracture. I am afraid if I try to remove this I may worsen the overall position. It is actually in pretty good position at this time. We were able to splint it with AP splints in current position with slight volar tilt of the wrist. She tolerated this quite well. Splint was wrapped gently. Capillary refill and sensation are intact. We will have her follow-up with her orthopedic surgeon. We will give medications for pain.. Radiography Diagnostic Testing: Clinical Impression(s) from Imaging Studies Forearm X-Ray 05/29/21 17:20 IMPRESSION: Distal radial and ulnar fracture. Electronically Signed: Harshil Harper MD at 18:14 EST , Discharge Plan Triage Chief Complaint: Fall ED Provider: Marcel Arreola Dx/Rx/DC Orders Clinical Impression: Fall from slipping, Fracture of left wrist Instructions: ED Fracture, Wrist, General Prescriptions: New oxycodone-acetaminophen [Percocet] 5-325 mg tablet 1 tab PO Q6H PRN (Reason: pain) 3 Days Qty: 12 RF: 0 No Action cholecalciferol (vitamin D3) 5,000 unit capsule 5,000 unit PO DAILY RF: 0 biotin 10 mg tablet 10 mg PO DAILY RF: 0 zinc 50 mg tablet 50 mg PO HS RF: 0 Joint Support Complex 654-126-90-0.5 mg capsule 3 cap PO DAILY RF: 0 selenium 200 MCG tablet 200 mcg PO QODAY RF: 0 melatonin 1 MG tablet 0.5 mg PO QHS RF: 0 alpha lipoic acid 200 MG capsule 200 mg PO DAILY RF: 0 phytonadione (vitamin K1) 100 MCG tablet 100 mcg PO DAILY RF: 0 potassium chloride 10 MEQ tablet 10 meq PO DAILY Qty: 20 RF: 0 nadolol 20 mg tablet 10 mg PO DAILY Qty: 90 RF: 3 Primary Care Provider: Rosy Montano Referrals: Rosy Montano DO [Primary Care Provider] - Des Herbert MD [STAFF PHYSICIAN] - As soon as possible Disposition Disposition: Home, Self Care
[2021-05-29 21:18] VITALS: BP 112/74; PULSE 87; RESP 17; O2SAT 95
--- NOTE | 2021-06-01 17:45 | CASEMGMT ---
SUSANNA ESCALANTE ED follow-up: Date of ER visit: 05/29/2021 Presenting ER complaint: fall Dx: fracture of left wrist SUSANNA ESCALANTE placed call to patient's telephone number listed on demographics and patient answered. SUSANNA ESCALANTE introduced self and role at [facility]. Patient states she was evaluated by orthopedic today and had wrist reset and now with less pain. Patient denies pain at time of call. Patient reports taking prescribed pain medication as directed. Patient educated on narcotic pain medication, including side effects. Patient instructed to rest, ice and elevate left wrist. Voiced understanding and reports wearing sling as instructed. Patient reports follow-up appointment again scheduled with ortho on 06/08/2021. Patient denies questions, needs or concerns and expressed appreciation for follow-up call. SUSANNA Schmitt CM
== END 2021-05-29 21:19 | disposition home or self-care (01) ==
PROVIDERS: Emergency Provider Emergency Medicine; PCP Family Medicine; Visit Provider Emergency Medicine
DX: S52.502A Unspecified fracture of the lower end of left radius, initial encounter for closed fracture (principal); S52.602A Unspecified fracture of lower end of left ulna, initial encounter for closed fracture; W00.0XXA Fall on same level due to ice and snow, initial encounter; Y93.9 Activity, unspecified; Y92.9 Unspecified place or not applicable; I34.1 Nonrheumatic mitral (valve) prolapse; M19.90 Unspecified osteoarthritis, unspecified site; Z79.899 Other long term (current) drug therapy
CPT/HCPCS: 29125; 73090; 96372; 99282

== ENCOUNTER 2021-06-02 06:03 | Outpatient (RCR) | payer SELFPAY | END 2021-07-02 23:59 | disposition home or self-care (01) | LOC: CR 06:03 | PROVIDERS: PCP Family Medicine; Referring Provider Internal Medicine Cardiovascular Disease; Visit Provider Internal Medicine Cardiovascular Disease | DX: Z00.00 Encounter for general adult medical examination without abnormal findings (principal) ==

== ENCOUNTER 2021-06-18 08:24 | Day surgery (SDC) | payer MEDICARE, OTHER, SELFPAY ==
--- NOTE | 2021-06-16 08:44 | EKG12_ITS ---
Test Reason : PREOP Blood Pressure : / mmHG Vent. Rate : 061 BPM Atrial Rate : 061 BPM P-R Int : 152 ms QRS Dur : 076 ms QT Int : 386 ms P-R-T Axes : 032 065 061 degrees QTc Int : 388 ms Normal sinus rhythm Nonspecific T wave abnormality Abnormal ECG Confirmed by JEFRY TERAN, SARAH ([id number]), book or script editor CALISTA NAYLOR ([id number]) on 06/18/2021 10:06:24 AM Referred By: Ruddy Arauz Confirmed By:SARAH CAPPS MD
[2021-06-16 09:33] LABS: Absolute Lymphocyte Count 0.84 X10^3/uL (0.83-4.51); Absolute Neutrophil Count 2.7 X10^3/uL (2.0-7.7); Basophil# 0.02 X10^3/uL; Basophil% 0.5 % (0-1); Hematocrit 41.5 % (37-47); Hemoglobin 13.9 g/dL (12.0-15.0); Lymphocyte # 0.84 X10^3/ul (0.83-4.51); Lymphocyte % 22.2 % (19-41); Mean Corp Hgb Conc 33.5 g/dL (32-36); Mean Corpuscular Hgb 31.4 pg (27.0-32.0); Mean Corpuscular Volume 93.7 fL (81-99); Mean Platelet Vol. 10.3 fl (6.2-12.0); Monocyte# 0.26 X10^3/uL; Monocyte% 6.9 % (0-10); NRBC Flagged by Analyzer 0 % (0-5); Neutrophil # 2.66 X10^3/uL (2.7-7.7); Neutrophil % 70.1 % (47-70); Platelet Count 218 K/mm3 (150-450); RBC Distribution Width CV 13.4 % (11.6-14.6); RBC Distribution Width SD 45.8 fl (35.1-43.9); Red Blood Count 4.43 M/mm3 (4.2-5.4); White Blood Count 3.8 K/mm3 (4.4-11.0)
[2021-06-16 09:52] LABS: Anion Gap 3 (5-15); BUN 6 mg/dL (7-18); BUN/Creat Ratio 9.2 RATIO (10-20); Calcium,Total 9.6 mg/dL (8.5-10.1); Chloride 107 mmol/L (98-107); Creatinine, Serum 0.65 mg/dL (0.55-1.02); EST Glomerular Filtration Rate 95 mL/min (>60); Est Glom Filt Rate - Afr Amer 115 mL/min (>60); Glucose 114 mg/dL (74-106); Potassium 3.5 mmol/L (3.5-5.1); Sodium Level 141 mmol/L (136-145)
[2021-06-16 09:54] LABS: Partial Thromboplast Time 29.9 Seconds (24.1-36.2); Prothrombin Time (Protime)PT. 12.3 SECONDS (11.7-14.9)
[2021-06-18] VITALS (10 sets, daily range): BP systolic 118–134; BP diastolic 54–75; PULSE 59–69; RESP 14–18; TEMP 36.1–36.7; O2SAT 95–100; BMI 23.7
--- NOTE | 2021-06-18 08:40 | RAD_ITS ---
STUDY: X-RAY CHEST REASON FOR EXAM: Female, 71 years old. PRE-OP TECHNIQUE: PA and lateral views of the chest. COMPARISON: 09/20/2019 FINDINGS: There is hyperinflation of the lungs consistent with chronic obstructive lung disease (COPD). No airspace consolidation. There is no demonstrated pleural abnormality. Normal size heart. Normal mediastinum and logan. Normal visualized pulmonary arteries. There is atherosclerotic tortuosity of the aortic arch and descending thoracic aorta. Scoliosis of the thoracolumbar spine. Diffuse osteopenia. There is no demonstrated abnormality of the visualized soft tissue structures of the upper abdomen. RAD/Chest PA and Lateral IMPRESSION: No airspace consolidation or pleural effusion. COPD. Electronically Signed: Bebo Wilkes MD (Brooks) at 9:02 EDT ,
[2021-06-18] MEDS: Lactated Ringers 1,000 ML 15 ML IV (09:15)
--- NOTE | 2021-06-18 10:15 | RAD_ITS ---
INDICATION: FX EXAMINATION: X-RAY - LEFT XR Wrist 2 Views TECHNIQUE: AP and lateral intraoperative fluoroscopic images were submitted for assessment. COMPARISON: Right forearm radiograph from 05/29/2021 FINDINGS: AP and lateral intraoperative fluoroscopic images of the left wrist were submitted for evaluation. Appropriate positioning of surgical fixation plate and screws in the previously seen distal radius fracture. Alignment appears to be somewhat improved from 05/29/2021 although assessment is limited on this study. Unchanged chronic fracture deformity of the distal ulna. RAD/Wrist 2 Views IMPRESSION: As above. Please see intraoperative report for further findings. Electronically Signed: Mirza Villalobos, at 13:23 EDT ,
[2021-06-18] MEDS: Cefazolin 2 GM in 0.9% Normal Saline 100 ML IV (10:54)
--- NOTE | 2021-06-18 12:09 | OP.PCM_ITS ---
Report of Operation Date of Procedure: 06/18/21 Description of Surgical Findings:: Preoperative diagnosis: Left distal radius and ulna fracture Postoperative diagnosis: Left distal radius and ulna fracture Procedure: Open reduction internal fixation left distal radius Surgeon: Ruddy Arauz DO Anesthesia: General endotracheal with axillary block Anesthesiologist: Dr. Loo Complications: None Drains: None Estimated blood loss: 20 cc Urinary output: None recorded IV fluids: Per anesthesia record Specimens: None Surgical implants: Arthrex 3-hole volar locking plate narrow left Surgical indications: This is a 71-year-old female who sustained a ground-level fall onto left outstretched hand approximately 3 weeks ago. Closed reduction was not performed emergency room and she was placed in a splint. I saw the patient in the office. There was significant dorsal translation of the extra- articular distal radius fracture and ulna. I recommend a closed reduction under hematoma block. Patient tolerated the block well. Improved alignment was noted. She was placed in a short arm cast. She followed up in 1 week. Alignment was not acceptable and she was getting some flexor tendon irritation. I recommended open reduction internal fixation of the left distal radius and possible ulna of the left wrist. The risks, benefits, terms the procedure reviewed with the patient at length and she agreed to proceed. Risks included but were not limited to bleeding, infection, loss of life or limb, need for additional surgery, tendon irritation, tendon rupture, neurovascular injury, DVT or PE, risk of anesthesia, nonhealing or delayed healing wound or bone. Informed consent obtained in the office. Description of procedure: Patient was seen in preoperative holding area. She was identified by name, medical record number, date of . The operative extremity was marked with a surgical marker. We confirmed informed consent with the patient and all questions were answered to her satisfaction. Dr. Loo also administered a left axillary block for postoperative and intraoperative analgesia. At time of her procedure, patient was brought to the operative suite and positioned supine on a standard operating table. All bony prominences were well-padded. General anesthesia was administered. After adequate anesthesia, a well-padded pneumatic tourniquet was applied to the upper arm of the operative extremity. We then spun the bed 90 degrees. We prepped and draped the operative extremity in a normal, sterile orthopedic fashion. We then performed a timeout with all parties in attendance in agreement the side, site, and operation be performed. No concerns were voiced and we elected to proceed. 2 g Ancef was administered for antibiotic prophylaxis prior to the incision by anesthesia staff. I first exsanguinated the operative extremity with an Esmarch bandage. Tourniquet was inflated to 250 mmHg. Esmarch was removed. I planned a standard FCR approach over the flexor carpi radialis tendon along the volar wrist. Skin was sharply incised with a 15 blade scalpel down to the level of the tendon sheath. The FCR tendon sheath was identified and split longitudinally in line with the incision. I then retracted the FCR tendon ulnarly, split the floor of the tendon sheath in line with the incision. The flexor pollicis longus muscle belly was then encountered and retracted ulnarly. The pronator quadratus was then encountered. A self-retaining retractor was placed deep. Performed an L- shaped tenotomy of the pronator quadratus and subperiosteally elevated it ulnarly. This exposed the fracture site. [] Intraoperative medications: [] Post Operative Plan: Weightbearing: Nonweightbearing operative extremity Antibiotics: [] x 1 dose preoperatively DVT Prophylaxis: [] Marrufo: [] Dressing: Maintain splint, keep it clean dry and intact until follow-up X-Rays: 2 weeks postop in the office Pain Medication: [] Follow-up: 2 weeks post-operatively with me in the office
--- NOTE | 2021-06-18 12:09 | PCM.DC ---
Discharge Instructions Follow Up Care Test Results: Test results from this visit will be discussed in further detail at your follow-up appointment, if applicable. Discharge Plan Admission Attending Provider: Ruddy Arauz Primary Care Provider: Rosy Montano Instructions Additional Instructions / Restrictions: Follow preprinted instructions from your surgeons office. Discharge Orders/Prescriptions Prescriptions: No Action cholecalciferol (vitamin D3) 5,000 unit capsule 5,000 unit PO DAILY RF: 0 biotin 10 mg tablet 10 mg PO DAILY RF: 0 Joint Support Complex 623-126-02-0.5 mg capsule 1 cap PO BID RF: 0 selenium 200 MCG tablet 200 mcg PO QODAY RF: 0 melatonin 1 MG tablet 0.5 mg PO QHS RF: 0 alpha lipoic acid 200 MG capsule 200 mg PO DAILY RF: 0 phytonadione (vitamin K1) 100 MCG tablet 100 mcg PO DAILY RF: 0 potassium chloride 10 MEQ tablet 10 meq PO DAILY Qty: 20 RF: 0 oxycodone-acetaminophen [Percocet] 5-325 mg tablet 1 tab PO Q6H PRN (Reason: pain) 3 Days Qty: 12 RF: 0 acetaminophen 500 mg Tablet 1,000 mg PO Q6H PRN (Reason: Pain) RF: 0 nadolol 20 mg tablet 10 mg PO DAILY Qty: 90 RF: 3 Referrals / Follow Up: Rosy Montano DO [Primary Care Provider] - Ruddy Arauz DO [STAFF PHYSICIAN] - Within 2 Weeks Disposition Disposition (needs filled in before D/C Order can be placed): Home, Self Care
[2021-06-18] MEDS: Acetaminophen 500 MG Tablet 1000 MG PO (14:16)
== END 2021-06-18 23:59 | disposition home or self-care (01) ==
LOC: SDC 08:25 → AC 08:26
PROVIDERS: PCP Family Medicine; Referring Provider Student in an Organized Health Care Education/Training Program; Visit Provider Student in an Organized Health Care Education/Training Program
PROC: (CPT 25607; principal; 2021-06-18 10:00)
DX: S52.552A Other extraarticular fracture of lower end of left radius, initial encounter for closed fracture (principal); S52.692A Other fracture of lower end of left ulna, initial encounter for closed fracture; I34.1 Nonrheumatic mitral (valve) prolapse; E04.1 Nontoxic single thyroid nodule; E78.00 Pure hypercholesterolemia, unspecified; Z79.899 Other long term (current) drug therapy
CPT/HCPCS: 25607; 01830; 36415; 71046; 73100; 76000; 80048; 85025; 85610; 85730; 93005; C1713; C1776; J7120; J2405

== ENCOUNTER 2021-09-01 08:00 | Outpatient (RCR) | payer SELFPAY | END 2021-09-01 23:59 | LOC: CR 08:00 | PROVIDERS: PCP Family Medicine; Referring Provider Internal Medicine Cardiovascular Disease; Visit Provider Internal Medicine Cardiovascular Disease | DX: Z00.00 Encounter for general adult medical examination without abnormal findings (principal) ==

== ENCOUNTER 2021-09-29 07:43 | Day surgery (SDC) | payer MEDICARE, OTHER, SELFPAY ==
[2021-09-29 08:02] VITALS: BP 135/67; PULSE 63; RESP 16; TEMP 36.1; O2SAT 100; BMI 22.7
[2021-09-29] MEDS: Lactated Ringers 1,000 ML 15 ML IV (08:05)
--- NOTE | 2021-09-29 08:19 | HP.PCM_ITS ---
[facility] - General General Date of Service: 09/29/21 HPI Narrative SORAYA MAURICIO, is a 71 F who presents today via open access for colonoscopy. Her previous colonoscopy was by Dr. Roshan Slade 10 years ago. Family history notable for her father had colon polyps. Patient herself has some problems with low blood pressure and mitral valve prolapse. She otherwise denies acute abdominal issues. [facility] Medical History (Updated 09/24/21 @ 11:38 by Chasidy Henderson) Arthritis Atrial premature contractions Back pain Cardiac murmur Cardiology follow-up encounter Chronic constipation Colles' fracture of right radius High cholesterol History of echocardiogram History of irregular heartbeat History of stress test Multiple thyroid nodules Nonrheumatic mitral (valve) prolapse Osteoarthritis Post-menopausal Premature ventricular contraction Sebaceous cyst Skin lesion Stage IV hemorrhoids Syncope Thyroid nodule Wears glasses Home Medications cholecalciferol (vitamin D3) 125 mcg (5,000 unit) capsule 5,000 unit PO DAILY supplement 03/08/19 [History Last Taken 09/19/19] alpha lipoic acid 200 mg capsule 200 mg PO DAILY supplement 04/12/19 [History Last Taken 09/19/19] melatonin 1 mg tablet 0.5 mg PO QHS 04/12/19 [History Last Taken 09/19/19] phytonadione (vitamin K1) 100 mcg tablet 100 mcg PO DAILY supplement 09/20/19 [History Last Taken 09/24/21] biotin 10 mg tablet 10 mg PO DAILY 02/19/20 [History Last Taken Unknown] glucosamine 500 mg-msm 100 mg-vit C 20 sr-poqdq-otvm-primrose capsule (Joint Support Complex) 1 cap PO BID 11/19/20 [History Last Taken Unknown] nadolol 20 mg tablet 10 mg PO DAILY bp #90 tabs 12/02/20 [Rx Last Taken 06/18/21 07:30] ibuprofen 200 mg capsule 200 mg PO Q6H PRN Pain 08/28/21 [History Last Taken Unknown] polyethylene glycol 3350 17 gram/dose oral powder (Miralax) 4 g PO DAILY PRN constipation 08/28/21 [History Last Taken Unknown] red yeast rice 600 mg capsule 600 mg PO DAILY 08/28/21 [History Last Taken Unknown] potassium 99 mg tablet 99 mg PO DAILY 09/24/21 [History Last Taken Unknown] Allergy/AdvReac Type Severity Reaction Status Date / Time Penicillins Allergy Other Verified 09/24/21 11:31 Sulfa (Sulfonamide Allergy Other Verified 09/24/21 11:31 Antibiotics) erythromycin base AdvReac Nausea Verified 09/24/21 11:31 [Erythromycin Base] Family History Father Hypertension Grandfather Myocardial infarction Respiratory disease Sister Arthritis Autoimmune disorder Grandmother Breast cancer Mother Kidney disease Surgical History (Updated 09/24/21 @ 11:38 by Chasidy Henderson) H/O foot surgery History of surgery on wrist Hx of bilateral cataract extraction Hx of breast biopsy Hx of colonoscopy S/P hemorrhoidectomy S/P thyroid biopsy (~2016) Social History Smoking Status: Never smoker alcohol intake: never substance use type: does not use ROS Constitutional Constitutional: Reports systems reviewed and no addt'l complaints, except as documented Cardiovascular Cardiovascular: Denies chest pain Respiratory/Chest Respiratory/Chest: Denies shortness of breath at rest Gastrointestinal Gastrointestinal: Denies abdominal pain, change in bowel habits, hematochezia or melena Vital Signs Vital Signs Vital Signs: 09/29/21 08:02 09/29/21 08:02 Temperature 97 F L Temperature Source Temporal Pulse Rate 63 Respiratory Rate 16 Respiratory Pattern Normal Blood Pressure 135/67 H Blood Pressure Mean 89 Blood Pressure Source Monitor Blood Pressure Position Semi-Fowlers Blood Pressure Location Right Arm Pulse Ox 100 Oxygen Delivery Method Room Air Weight Weight: 141 lb 1.533 oz Body Mass Index (BMI) 22.7 Physical Exam Const alert, oriented x3 and no apparent distress General Appearance: cooperative and comfortable Eyes General Eye: normal appearance of both eyes Neck General: normal visual inspection Chest inspection of chest normal Resp Effort and Inspection: able to speak in complete sentences and symmetric chest movement Auscultation: clear to auscultation bilaterally Cardio regular rate and regular rhythm GI soft to palpation, non-tender and non-distended Extremity no calf tenderness Neuro oriented x3 Psych thought process normal Assessment & Plan Assessment/Plan (1) Encounter for screening for malignant neoplasm of colon: PLAN: Plan to proceed with a screening colonoscopy with possible biopsy or polypectomy as indicated. The patient is troubled by routine hemorrhoids and chronic constipation. She has had an opportunity to ask and have questions answered. We are currently administering enemas to see if we can get her cleaned off to proceed today. Cr Rojas M.D., F.A.C.S.
[2021-09-29 09:30] VITALS: BP 103/69; BP 135/67; PULSE 58; RESP 16; TEMP 36.2; O2SAT 99
--- NOTE | 2021-09-29 09:33 | OP.COLON_ITS ---
Patient Name: Jil Medina Procedure Date: 09/29/2021 8:57 AM Date of : 1950 Age: 71 Procedure: Colonoscopy Indications: Screening for colorectal malignant neoplasm Providers: Cr Rojas MD Medicines: See the Anesthesia note for documentation of the administered medications Patient Profile: Last Colonoscopy: 10 years ago. Complications: No immediate complications. Procedure: Pre-Anesthesia Assessment: - Prior to the procedure, a History and Physical was performed, and patient medications and allergies were reviewed. The patient's tolerance of previous anesthesia was also reviewed. The risks and benefits of the procedure and the sedation options and risks were discussed with the patient. All questions were answered, and informed consent was obtained. Prior Anticoagulants: The patient has taken no previous anticoagulant or antiplatelet agents. ASA Grade Assessment: II - A patient with mild systemic disease. After reviewing the risks and benefits, the patient was deemed in satisfactory condition to undergo the procedure. After I obtained informed consent, the scope was passed under direct vision. Throughout the procedure, the patient's blood pressure, pulse, and oxygen saturations were monitored continuously. The Colonoscope was introduced through the anus and advanced to the cecum, identified by appendiceal orifice and ileocecal valve. The colonoscopy was performed without difficulty. The patient tolerated the procedure well. The quality of the bowel preparation was adequate to identify polyps. The ileocecal valve and the appendiceal orifice were photographed. Scope In: 9:11:54 AM Scope Withdrawal Time 0 hours 7 minutes 28 seconds Scope Out: 9:26:29 AM Total Procedure Duration Time 0 hours 14 minutes 35 seconds Findings: Lax anal tone Scattered diverticula were found in the entire colon. There was evidence of a prior Hemorrhoidectomy Impression: - Diverticulosis in the entire examined colon. - [Patency Status] anastomosis, characterized by stenosis. - No specimens collected. Recommendation: - Discharge patient to home. - Resume previous diet. - Continue present medications. - Repeat colonoscopy is not recommended due to current age (66 years or older) for screening purposes. Procedure Code(s): --- Professional --- 88833, Colonoscopy, flexible; diagnostic, including collection of specimen(s) by brushing or washing, when performed (separate procedure) Diagnosis Code(s): --- Professional --- Z12.11, Encounter for screening for malignant neoplasm of colon Z98.0, Intestinal bypass and anastomosis status K57.30, Diverticulosis of large intestine without perforation or abscess without bleeding CPT copyright 2017 [employer]. All rights reserved. The codes documented in this report are preliminary and upon medical records coder review may be revised to meet current compliance requirements. Cr Rojas MD 09/29/2021 9:33:01 AM This report has been signed electronically. Number of Addenda: 0 Note Initiated On: 09/29/2021 8:57 AM
--- NOTE | 2021-09-29 09:33 | OP.CCLET_ITS ---
09/29/2021 Rosy Montano Do Re : Colonoscopy procedure for Jil Medina Dear Dr. Montano This procedure was performed on Wednesday, September 29, 2021. My impressions and recommendations are as follows: Impressions : - Diverticulosis in the entire examined colon. - [Patency Status] anastomosis, characterized by stenosis. - No specimens collected. Recommendations : - Discharge patient to home. - Resume previous diet. - Continue present medications. - Repeat colonoscopy is not recommended due to current age (66 years or older) for screening purposes. My findings are described in the full procedure note, which is enclosed. If I can be of further assistance, please feel free to contact me at Doctor phone number(s): Work: . Sincerely, Cr Rojas MD 09/29/2021 9:33:01 AM This report has been signed electronically.
[2021-09-29 09:35] VITALS: BP 105/63; BP 135/67; PULSE 59; RESP 16; O2SAT 100
[2021-09-29 09:40] VITALS: BP 109/65; BP 135/67; PULSE 60; RESP 16; O2SAT 100
[2021-09-29 09:47] VITALS: BP 119/89; BP 135/67; PULSE 58; RESP 16; TEMP 36.6; O2SAT 100
[2021-09-29 10:05] VITALS: BP 135/67
== END 2021-09-29 10:35 | disposition home or self-care (01) ==
LOC: EN 07:44 → AC 07:46
PROVIDERS: PCP Family Medicine; Referring Provider Family Medicine; Visit Provider Surgery
PROC: 0DJD8ZZ Inspection of Lower Intestinal Tract, Via Natural or Artificial Opening Endoscopic (ICD-10-PCS; CPT 45378; principal; 2021-09-29 08:40)
DX: Z12.11 Encounter for screening for malignant neoplasm of colon (principal); M19.90 Unspecified osteoarthritis, unspecified site; E78.00 Pure hypercholesterolemia, unspecified; Z78.0 Asymptomatic menopausal state; Z79.899 Other long term (current) drug therapy; Z98.0 Intestinal bypass and anastomosis status; K57.30 Diverticulosis of large intestine without perforation or abscess without bleeding; I34.1 Nonrheumatic mitral (valve) prolapse
CPT/HCPCS: G0121; J7120; J2405

== ENCOUNTER 2021-10-01 08:00 | Outpatient (RCR) | payer SELFPAY | END 2021-10-01 23:59 | LOC: CR 08:00 | PROVIDERS: PCP Family Medicine; Referring Provider Internal Medicine Cardiovascular Disease; Visit Provider Internal Medicine Cardiovascular Disease | DX: Z00.00 Encounter for general adult medical examination without abnormal findings (principal) ==

== ENCOUNTER → 2021-10-22 | Outpatient (CLI) | payer MEDICARE, OTHER, SELFPAY ==
--- NOTE | 2021-10-22 12:48 | ECHOD_ITS ---
Reason For Study: MVP Procedure This was a 2D Doppler, Color Flow transthoracic echocardiogram. The exam was of good technical quality. Exam performed in department. Left Ventricle Normal LV size. Left ventricular systolic function is normal. The estimated ejection fraction is 65 %. No evidence for diastolic dysfunction. No regional wall motion abnormalities noted. Right Ventricle Normal RV size. Normal systolic function. Atria The left atrium is mildly enlarged. Normal right atrium. No doppler evidence for ASD. Mitral Valve There is no mitral annular calcification. Mild diffuse mitral valve thickening. Moderate mitral valve prolapse, posterior leaflet. Moderate (2+) eccentric mitral valve insufficiency. Tricuspid Valve Normal tricuspid valve. Trivial tricuspid valve insufficiency. Right ventricular systolic pressure estimated to be 24 mmHg. Aortic Valve Trisinus/trileaflet aortic valve. Normal aortic valve. Trivial aortic valve insufficiency. Pulmonic Valve The pulmonic valve is not well visualized. Great Vessels Normal sized aortic root. Pericardium/Pleural No pericardial effusion. MMode/2D Measurements & Calculations LVIDd: 4.4 cm IVSd: 0.88 cm Ao root diam: 3.0 cm LVIDs: 2.7 cm LVPWd: 1.2 cm RVDd: 3.4 cm FS: 39.0 % LAV(MOD-sp2): 59.4 ml LVAd ap4: 22.0 cm2 SV(MOD-sp4): 35.5 ml LVLd ap4: 6.7 cm EDV(MOD-sp4): 60.2 ml EDV(sp4-el): 61.5 ml LVAs ap4: 12.2 cm2 LVLs ap4: 5.0 cm ESV(MOD-sp4): 24.8 ml ESV(sp4-el): 25.6 ml EF(MOD-sp4): 58.9 % EF(sp4-el): 58.5 % SV(sp4-el): 36.0 ml LA A4 area: 18.7 cm2 LA dimension(2D): 4.8 cm RA A4 area: 19.2 cm2 Time Measurements MV dec time: 0.28 sec Doppler Measurements & Calculations MV E max jadon: 71.7 cm/sec Lat Peak E' Jadon: 10.8 cm/sec Med Peak E' Jadon: 7.7 cm/sec MV A max jadon: 47.2 cm/sec E/E' lat: 6.6 E/E' med: 9.3 MV E/A: 1.5 MV V2 max: 111.4 cm/sec Ao V2 max: 124.0 cm/sec MV max P.0 mmHg MV dec slope: 253.7 cm/sec2 Ao max P.2 mmHg MV V2 mean: 54.2 cm/sec Ao V2 mean: 81.5 cm/sec MV mean P.5 mmHg Ao mean P.1 mmHg MV V2 VTI: 34.2 cm Ao V2 VTI: 28.2 cm AI max jadon: 304.6 cm/sec LV V1 max: 96.0 cm/sec MR max jadon: 532.7 cm/sec AI max P.2 mmHg LV V1 max P.7 mmHg MR max P.5 mmHg LV V1 mean P.1 mmHg AI dec slope: 150.0 cm/sec2 LV V1 mean: 66.3 cm/sec AI P1/2t: 595.0 msec LV V1 VTI: 23.1 cm PA V2 max: 86.6 cm/sec TR max jadon: 229.0 cm/sec PA V2 mean: 65.4 cm/sec TR max P.0 mmHg ECHO/Echo Complete Interpretation Summary Left ventricular systolic function is normal. The estimated ejection fraction is 65 %. The left atrium is mildly enlarged. Mild diffuse mitral valve thickening. Moderate mitral valve prolapse, posterior leaflet Moderate (2+) eccentric mitral valve insufficiency. Trivial tricuspid valve insufficiency. Trivial aortic valve insufficiency. Right ventricular systolic pressure estimated to be 24 mmHg. No evidence for diastolic dysfunction. Ordering Physician: Dayne Barba Referring Physician: Syed Currie Performed By: Judi Azul RCS
== END | disposition home or self-care (01) ==
PROVIDERS: PCP Family Medicine; Referring Provider Internal Medicine Cardiovascular Disease; Visit Provider Internal Medicine Cardiovascular Disease
DX: I34.1 Nonrheumatic mitral (valve) prolapse (principal); I49.3 Ventricular premature depolarization; I49.1 Atrial premature depolarization
CPT/HCPCS: 93306

== ENCOUNTER 2021-10-29 08:00 | Outpatient (RCR) | payer SELFPAY | END 2021-11-01 23:59 | LOC: CR 08:00 | PROVIDERS: PCP Family Medicine; Referring Provider Internal Medicine Cardiovascular Disease; Visit Provider Internal Medicine Cardiovascular Disease | DX: Z00.00 Encounter for general adult medical examination without abnormal findings (principal) ==

== ENCOUNTER 2021-12-01 08:00 | Outpatient (RCR) | payer SELFPAY | END 2021-12-02 23:59 | LOC: CR 08:00 | PROVIDERS: PCP Family Medicine; Referring Provider Internal Medicine Cardiovascular Disease; Visit Provider Internal Medicine Cardiovascular Disease | DX: Z00.00 Encounter for general adult medical examination without abnormal findings (principal) ==

== ENCOUNTER 2021-12-31 08:00 | Outpatient (RCR) | payer SELFPAY | END 2022-01-01 23:59 | LOC: CR 08:00 | PROVIDERS: PCP Family Medicine; Referring Provider Internal Medicine Cardiovascular Disease; Visit Provider Internal Medicine Cardiovascular Disease | DX: Z00.00 Encounter for general adult medical examination without abnormal findings (principal) ==

== ENCOUNTER 2022-01-28 08:00 | Outpatient (RCR) | payer SELFPAY | END 2022-02-01 23:59 | LOC: CR 08:00 | PROVIDERS: PCP Family Medicine; Referring Provider Internal Medicine Cardiovascular Disease; Visit Provider Internal Medicine Cardiovascular Disease | DX: Z00.00 Encounter for general adult medical examination without abnormal findings (principal) ==

== ENCOUNTER 2022-03-02 08:00 | Outpatient (RCR) | payer SELFPAY | END 2022-03-03 23:59 | LOC: CR 08:00 | PROVIDERS: PCP Family Medicine; Referring Provider Internal Medicine Cardiovascular Disease; Visit Provider Internal Medicine Cardiovascular Disease | DX: Z00.00 Encounter for general adult medical examination without abnormal findings (principal) ==

== ENCOUNTER 2022-04-01 08:00 | Outpatient (RCR) | payer SELFPAY | END 2022-04-03 23:59 | LOC: CR 08:00 | PROVIDERS: PCP Family Medicine; Referring Provider Internal Medicine Cardiovascular Disease; Visit Provider Internal Medicine Cardiovascular Disease | DX: Z00.00 Encounter for general adult medical examination without abnormal findings (principal) ==

== ENCOUNTER 2022-05-04 08:00 | Outpatient (RCR) | payer SELFPAY | END 2022-05-04 23:59 | LOC: CR 08:00 | PROVIDERS: PCP Family Medicine; Visit Provider Family Medicine | DX: Z00.00 Encounter for general adult medical examination without abnormal findings (principal) ==

== ENCOUNTER → 2022-05-05 | Outpatient (CLI) | payer MEDICARE, OTHER, SELFPAY | END | disposition home or self-care (01) | LOC: LAB 09:05 | PROVIDERS: PCP Family Medicine; Referring Provider Ophthalmology; Visit Provider Ophthalmology | DX: H04.123 Dry eye syndrome of bilateral lacrimal glands (principal) | CPT/HCPCS: 36415 ==

== ENCOUNTER 2022-06-01 08:00 | Outpatient (RCR) | payer SELFPAY | END 2022-06-01 23:59 | LOC: CR 08:00 | PROVIDERS: PCP Family Medicine; Visit Provider Family Medicine | DX: Z00.00 Encounter for general adult medical examination without abnormal findings (principal) ==

== ENCOUNTER 2022-07-01 08:00 | Outpatient (RCR) | payer SELFPAY | END 2022-07-02 23:59 | LOC: CR 08:00 | PROVIDERS: PCP Family Medicine; Visit Provider Family Medicine | DX: Z00.00 Encounter for general adult medical examination without abnormal findings (principal) ==

== ENCOUNTER 2022-07-29 08:00 | Outpatient (RCR) | payer SELFPAY | END 2022-08-01 23:59 | LOC: CR 08:00 | PROVIDERS: PCP Family Medicine; Visit Provider Family Medicine | DX: Z00.00 Encounter for general adult medical examination without abnormal findings (principal) ==

== ENCOUNTER 2022-08-31 08:00 | Outpatient (RCR) | payer SELFPAY | END 2022-09-01 23:59 | LOC: CR 08:00 | PROVIDERS: PCP Family Medicine; Referring Provider Family Medicine; Visit Provider Family Medicine | DX: Z00.00 Encounter for general adult medical examination without abnormal findings (principal) ==

== ENCOUNTER → 2022-09-02 | Outpatient (CLI) | payer MEDICARE, OTHER, SELFPAY | END | disposition home or self-care (01) | LOC: LAB 07:58 | PROVIDERS: PCP Physician Assistant; Referring Provider Ophthalmology; Visit Provider Ophthalmology | DX: H04.123 Dry eye syndrome of bilateral lacrimal glands (principal) | CPT/HCPCS: 36415 ==

== ENCOUNTER 2022-09-30 08:00 | Outpatient (RCR) | payer SELFPAY | END 2022-10-01 23:59 | LOC: CR 08:00 | PROVIDERS: PCP Family Medicine; Referring Provider Family Medicine; Visit Provider Family Medicine | DX: Z00.00 Encounter for general adult medical examination without abnormal findings (principal) ==

== ENCOUNTER 2022-10-28 08:00 | Outpatient (RCR) | payer SELFPAY | END 2022-11-01 23:59 | LOC: CR 08:00 | PROVIDERS: PCP Physician Assistant; Referring Provider Family Medicine; Visit Provider Family Medicine | DX: Z00.00 Encounter for general adult medical examination without abnormal findings (principal) ==

== ENCOUNTER 2022-12-02 08:00 | Outpatient (RCR) | payer SELFPAY | END 2022-12-02 23:59 | LOC: CR 08:00 | PROVIDERS: PCP Physician Assistant; Referring Provider Family Medicine; Visit Provider Family Medicine | DX: Z00.00 Encounter for general adult medical examination without abnormal findings (principal) ==

== ENCOUNTER 2022-12-30 08:00 | Outpatient (RCR) | payer SELFPAY | END 2023-01-01 23:59 | LOC: CR 08:00 | PROVIDERS: PCP Physician Assistant; Referring Provider Family Medicine; Visit Provider Family Medicine | DX: Z00.00 Encounter for general adult medical examination without abnormal findings (principal) ==

== ENCOUNTER 2023-02-01 08:00 | Outpatient (RCR) | payer SELFPAY | END 2023-02-01 23:59 | LOC: CR 08:00 | PROVIDERS: PCP Physician Assistant; Referring Provider Family Medicine; Visit Provider Family Medicine | DX: Z00.00 Encounter for general adult medical examination without abnormal findings (principal) ==

== ENCOUNTER 2023-03-03 08:00 | Outpatient (RCR) | payer SELFPAY | END 2023-03-03 23:59 | LOC: CR 08:00 | PROVIDERS: PCP Physician Assistant; Referring Provider Family Medicine; Visit Provider Family Medicine | DX: Z00.00 Encounter for general adult medical examination without abnormal findings (principal) ==

== ENCOUNTER 2023-03-24 08:00 | Outpatient (RCR) | payer SELFPAY | END 2023-04-03 23:59 | LOC: CR 08:00 | PROVIDERS: PCP Physician Assistant; Referring Provider Family Medicine; Visit Provider Family Medicine | DX: Z00.00 Encounter for general adult medical examination without abnormal findings (principal) ==

== ENCOUNTER 2023-05-03 08:00 | Outpatient (RCR) | payer SELFPAY | END 2023-05-04 23:59 | LOC: CR 08:00 | PROVIDERS: PCP Physician Assistant; Referring Provider Family Medicine; Visit Provider Family Medicine | DX: Z00.00 Encounter for general adult medical examination without abnormal findings (principal) ==

== ENCOUNTER → 2023-05-24 | Outpatient (CLI) | payer SELFPAY ==
[2023-05-24 10:52] LABS: SERUM TEARS COLLECTION SPECIMEN PROCESSED
== END | disposition home or self-care (01) ==
PROVIDERS: PCP Physician Assistant; Referring Provider Ophthalmology; Visit Provider Ophthalmology
DX: Z00.00 Encounter for general adult medical examination without abnormal findings (principal)

== ENCOUNTER 2023-06-02 08:00 | Outpatient (RCR) | payer SELFPAY | END 2023-06-02 23:59 | LOC: CR 08:00 | PROVIDERS: PCP Physician Assistant; Referring Provider Family Medicine; Visit Provider Family Medicine | DX: Z00.00 Encounter for general adult medical examination without abnormal findings (principal) ==

== ENCOUNTER 2023-06-30 08:00 | Outpatient (RCR) | payer SELFPAY | END 2023-07-03 23:59 | LOC: CR 08:00 | PROVIDERS: PCP Physician Assistant; Referring Provider Family Medicine; Visit Provider Family Medicine | DX: Z00.00 Encounter for general adult medical examination without abnormal findings (principal) ==

== ENCOUNTER → 2023-07-12 | Outpatient (CLI) | payer MEDICARE, OTHER, SELFPAY ==
[2023-07-12 12:44] LABS: Absolute Lymphocyte Count 0.98 X10^3/uL (0.83-4.51); Absolute Neutrophil Count 6.7 X10^3/uL (2.0-7.7); Basophil# 0.03 X10^3/uL; Basophil% 0.4 % (0-1); Hematocrit 44.1 % (37-47); Hemoglobin 14.2 g/dL (12.0-15.0); Lymphocyte # 0.98 X10^3/ul (0.83-4.51); Lymphocyte % 11.8 % (19-41); Mean Corp Hgb Conc 32.2 g/dL (32-36); Mean Corpuscular Hgb 30.5 pg (27.0-32.0); Mean Corpuscular Volume 94.6 fL (81-99); Monocyte# 0.55 X10^3/uL; Monocyte% 6.6 % (0-10); NRBC Flagged by Analyzer 0 % (0-5); Neutrophil # 6.74 X10^3/uL (2.7-7.7); Platelet Count 206 K/mm3 (150-450); RBC Distribution Width CV 12.7 % (11.6-14.6); RBC Distribution Width SD 43.9 fl (35.1-43.9); Red Blood Count 4.66 M/mm3 (4.2-5.4); White Blood Count 8.3 K/mm3 (4.4-11.0)
[2023-07-12 13:29] LABS: Anion Gap 5 (5-15); BUN 8 mg/dL (7-18); BUN/Creat Ratio 16.2 RATIO (10-20); Calcium,Total 9.4 mg/dL (8.5-10.1); Chloride 106 mmol/L (98-107); Creatinine, Serum 0.49 mg/dL (0.55-1.02); EST Glomerular Filtration Rate 130 mL/min (>60); Est Glom Filt Rate - Afr Amer 157 mL/min (>60); Glucose 103 mg/dL (74-106); Potassium 3.6 mmol/L (3.5-5.1); Sodium Level 140 mmol/L (136-145)
== END | disposition home or self-care (01) ==
PROVIDERS: PCP Physician Assistant; Referring Provider Nurse Practitioner Gerontology; Visit Provider Nurse Practitioner Gerontology
DX: R06.09 Other forms of dyspnea (principal); R53.83 Other fatigue
CPT/HCPCS: 36415; 80048; 83880; 84443; 85025

== ENCOUNTER → 2023-07-26 | Outpatient (CLI) | payer MEDICARE, OTHER, SELFPAY | END | disposition home or self-care (01) | LOC: PSN 08:54 | PROVIDERS: PCP Physician Assistant; Referring Provider Nurse Practitioner Gerontology; Visit Provider Nurse Practitioner Gerontology | DX: I49.3 Ventricular premature depolarization (principal); I49.1 Atrial premature depolarization | CPT/HCPCS: 93225; 93226 ==

== ENCOUNTER → 2023-07-27 | Outpatient (CLI) | payer MEDICARE, OTHER, SELFPAY ==
--- NOTE | 2023-07-27 15:57 | BI_ITS ---
MAMMOGRAPHY - UNILATERAL DIAGNOSTIC: RIGHT BREAST REASON FOR EXAM: Female, 73 years old. Clip placement following biopsy. PERTINENT HISTORY: TECHNIQUE: Mediolateral oblique and craniocaudad projections of the right breast were obtained. CAD: Full Field Digital Mammography with Computer Added Detection was performed. COMPARISON: Comparison is made with prior outside examination dated July 20, 2023. FINDINGS: Breast Composition: The breasts are heterogeneously dense, which may obscure small masses. A tissue clip marker is seen in the deep upper lateral aspect of the right breast. No other significant abnormalities are identified. BI/DIAG MAMM W/CAD, UNILAT IMPRESSION: Status post biopsy. A tissue clip marker is seen in the deep upper lateral aspect of the right breast. ASSESSMENT CATEGORY: BIRADS Category 2: Benign. A letter regarding these results will be sent to the patient by the facility within 30 days. Approximately 10% of breast cancers are not detected by mammography. A normal mammogram should not delay biopsy of a clinically suspicious abnormality. Electronically Signed: Tomer Jenkins MD at 8:39 EDT ,
== END | disposition home or self-care (01) ==
LOC: OPBI 15:53
PROVIDERS: PCP Physician Assistant; Referring Provider Surgery; Visit Provider Surgery
DX: R92.8 Other abnormal and inconclusive findings on diagnostic imaging of breast (principal)
CPT/HCPCS: 77065

== ENCOUNTER → 2023-07-28 | Outpatient (CLI) | payer MEDICARE, OTHER, SELFPAY ==
--- NOTE | 2023-07-28 | IMM_PTH ---
PATIENT: SORAYA MAURICIO LOC: [facility] U#:[id number] AGE/SX: 73/F ROOM: RE07/28/[address]: Dr. Cr Rojas MD : 1950 BED: DIS: 07/28/2023 SPEC #: [id number] RECD: 07/29/23 11:23 STATUS: JOSE REQ #: [id number] DEE DEE: 07/28/23 00:[address]: Cr Rojas DEPT: IMMUNOHISTOCHEMISTRY RECD BY: Sidney Upton ENTERED: 07/29/23 11:24 SP TYPE: IMMUNO OTHR DR: COLLEEN Hicks Tissues: Breast, NOS Procedures: E-CAD (initial) CALPONIN-1 (add) CK8 (add) Pankeratin (add) P40 (add) PHYSICIAN & INSTITUTION [facility] [id number] SPECIMEN INFORMATION: Tissue Source: Right breast tissue Clinical Info: Right breast masses Specimen Number: [id number] CPT code: 89014,88965w6 METHODOLOGY: Deparaffinized sections of prefer/formalin-fixed tissue or PAP/DQ stained slides are incubated with monoclonal/polyclonal antibodies/oligonucleotide probes. Localization is made via biotin free immunoperoxidase method. Appropriate controls are performed and reacted as expected. Results on target cell population are indicated in the following table: RESULTS: ANTIBODY / CLONE RESULT E-Cad (ECH-6) positive AE1-3 (AE1/AE3/PCK26) positive CK8 ([id number]) positive Calponin-1 (XT969L) positive P40 (BC28) positive These tests were developed and their performance characteristics determined by [facility]. They may not have been cleared or approved by the U.S. Food and Drug Administration. The FDA has determined that such clearance or approval is not necessary. The above immunohistochemical/dualISH markers are ordered and reviewed by the Pathologist. INTERPRETATION: Right breast tissue, biopsy: Extensive elastosis. No evidence of malignancy. AM/mr 08/02/23
--- NOTE | 2023-07-28 | BRBX_PTH ---
PATIENT: SORAYA MAURICIO [facility] U#:[id number] AGE/SX: 73/F ROOM: RE07/28/[address]: Dr. Cr Rojas MD : 1950 BED: DIS: 07/28/2023 SPEC #: [id number] RECD: 07/28/23 12:53 STATUS: JOSE REHoracio #: [id number] DEE DEE: 07/28/23 00:[address]: Cr Rojas DEPT: SURGICAL PATHOLOGY RECD BY: Rod Rogers ENTERED: 07/28/23 12:53 SP TYPE: BREAST BX OTHR DR: COLLEEN Hicks Tissues: Right breast, NOS Procedures: Surgery Specimen Level IV HEADER OPERATION: Right breast biopsy PRE-OP DIAGNOSIS: Right breast masses TISSUE SUBMITTED: Right breast tissue MICROSCOPIC DIAGNOSIS Right breast, core biopsy: Fragments of benign breast tissue with extensive elastosis and degenerative changes. 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 Negative for atypia and malignancy. See comment. / 07/29/2023 COMMENT Immunohistochemistry ([id number]) supports the above diagnosis. Correlation with clinical, radiologic findings and appropriate follow up are necessary. Case has been reviewed in consultation with Dr. Valle who concurs with the above diagnosis. IDC:SJ MICROSCOPIC DESCRIPTION Slides are reviewed. GROSS DESCRIPTION Received in fixative is one container labeled with the patient's name and designated Right breast. The specimen consists of multiple elongated fragments of pittman-yellow fibroadipose tissue each measuring in aggregate 1.5 x 0.2 x 0.1cm. The entire specimen is submitted in one cassette./ 07/28/23 TC: 5 CPT:83678
--- NOTE | 2023-07-28 | BRBX_PTH ---
PATIENT: [facility]ORAY[facility]URICIO [facility] U[facility][id number] AGE/SX: 73/F ROOM: RE07/28/[address]: Dr. Cr Rojas MD : 1950 BED: DIS: 07/28/2023 SPEC #: [id number] RECD: 07/28/23 12:53 STATUS: JOSE REHoracio #: [id number] DEE DEE: 07/28/23 00:[address]: Cr Rojas DEPT: SURGICAL PATHOLOGY RECD BY: Rod Rogers ENTERED: 07/28/23 12:53 SP TYPE: BREAST BX OTHR DR: COLLEEN Hicks Tissues: Right breast, NOS Procedures: Surgery Specimen Level IV HEADER OPERATION: Right breast biopsy PRE-OP DIAGNOSIS: Right breast masses TISSUE SUBMITTED: Right breast tissue MICROSCOPIC DIAGNOSIS Right breast, core biopsy: Fragments of benign breast tissue with extensive elastosis and degenerative changes. 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 Negative for atypia and malignancy. See comment. /mr 08/02/2023 COMMENT Immunohistochemistry ([id number]) supports the above diagnosis. Correlation with clinical, radiologic findings and appropriate follow up are necessary. Case has been reviewed in consultation with Dr. Valle who concurs with the above diagnosis. IDC:[email or web address] MICROSCOPIC DESCRIPTION Slides are reviewed. GROSS DESCRIPTION Received in fixative is one container labeled with the patient's name and designated Right breast. The specimen consists of multiple elongated fragments of pittman-yellow fibroadipose tissue each measuring in aggregate 1.5 x 0.2 x 0.1cm. The entire specimen is submitted in one cassette.AKIKO/ 07/28/23 TC: 5 CPT:15533
== END | disposition home or self-care (01) ==
LOC: LABSPEC 07:04
PROVIDERS: PCP Physician Assistant; Referring Provider Surgery; Visit Provider Surgery
DX: N63.10 Unspecified lump in the right breast, unspecified quadrant (principal)
CPT/HCPCS: 88305; 88341; 88342

== ENCOUNTER 2023-08-02 08:00 | Outpatient (RCR) | payer SELFPAY | END 2023-08-02 23:59 | LOC: CR 08:00 | PROVIDERS: PCP Physician Assistant; Referring Provider Family Medicine; Visit Provider Family Medicine | DX: Z00.00 Encounter for general adult medical examination without abnormal findings (principal) ==

== ENCOUNTER → 2023-08-09 | Outpatient (CLI) | payer MEDICARE, OTHER, SELFPAY ==
--- NOTE | 2023-08-09 12:47 | ECHOD_ITS ---
Reason For Study: Dyspnea Procedure This was a 2D Doppler, Color Flow transthoracic echocardiogram. Exam performed in department. Left Ventricle Normal LV size. Left ventricular systolic function is normal. The left ventricular ejection fraction is 55 %. No regional wall motion abnormalities noted. Right Ventricle Normal RV size. Normal systolic function. Mitral Valve Mild mitral valve prolapse. Mild (1+) eccentric mitral valve insufficiency. Tricuspid Valve Normal tricuspid valve. Mild (1+) tricuspid valve insufficiency. Pulmonary artery systolic pressure is 30 mmHg. Aortic Valve Normal aortic valve. Mild (1+) aortic valve insufficiency. Pulmonic Valve Normal pulmonic valve. Great Vessels Normal aortic root. Pericardium/Pleural No pericardial effusion. MMode/2D Measurements & Calculations LVIDd: 4.5 cm IVSd: 0.87 cm Ao root diam: 3.2 cm LVIDs: 2.8 cm LVPWd: 1.1 cm LA dimension: 4.4 cm RVDd: 3.3 cm FS: 36.8 % LAV(MOD-bp): 62.3 ml LA A4 area: 19.5 cm2 RA A4 area: 14.9 cm2 LAV(MOD-bp) Indexed: 35.6 ml/m2 LAV(MOD-sp2): 58.8 ml LAV(MOD-sp4): 60.0 ml TAPSE: 1.9 cm Time Measurements MV dec time: 0.13 sec Doppler Measurements & Calculations MV E max jadon: 64.5 cm/sec Lat Peak E' Jadon: 6.0 cm/sec Med Peak E' Jadon: 5.3 cm/sec MV A max jadon: 56.0 cm/sec E/E' lat: 10.7 E/E' med: 12.2 MV E/A: 1.2 MV V2 max: 90.8 cm/sec MV P1/2t max jadon: 91.6 cm/sec Ao V2 max: 113.5 cm/sec MV max P.3 mmHg MV P1/2t: 56.9 msec Ao max P.2 mmHg MV V2 mean: 45.6 cm/sec Ao V2 mean: 73.8 cm/sec MV mean P.0 mmHg MV dec slope: 471.0 cm/sec2 Ao mean P.5 mmHg MV V2 VTI: 27.1 cm MVA(P1/2t): 3.9 cm2 Ao V2 VTI: 21.8 cm AI max jadon: 332.1 cm/sec LV V1 max: 97.3 cm/sec MR max jadon: 562.1 cm/sec AI max P.1 mmHg LV V1 max P.8 mmHg MR max P.4 mmHg AI dec slope: 214.2 cm/sec2 MR mean jadon: 452.2 cm/sec AI P1/2t: 454.2 msec MR mean P.6 mmHg MR VTI: 194.7 cm PA V2 max: 81.6 cm/sec TR max jadon: 257.4 cm/sec PA V2 mean: 57.1 cm/sec TR max P.5 mmHg ECHO/Echo Complete Interpretation Summary Normal LV size. Left ventricular systolic function is normal. The left ventricular ejection fraction is 55 %. Pulmonary artery systolic pressure is 30 mmHg. Mild mitral valve prolapse. Mild (1+) eccentric mitral valve insufficiency. Ordering Physician: Amy Bull Referring Physician: Amy Bull Performed By: Ricky Evangelista RCS
== END | disposition home or self-care (01) ==
LOC: CVS 12:46
PROVIDERS: PCP Physician Assistant; Referring Provider Nurse Practitioner Gerontology; Visit Provider Nurse Practitioner Gerontology
DX: I34.1 Nonrheumatic mitral (valve) prolapse (principal); I34.0 Nonrheumatic mitral (valve) insufficiency; R06.09 Other forms of dyspnea
CPT/HCPCS: 93306

== ENCOUNTER 2023-08-30 08:00 | Outpatient (RCR) | payer SELFPAY | END 2023-09-02 23:59 | LOC: CR 08:00 | PROVIDERS: PCP Physician Assistant; Referring Provider Family Medicine; Visit Provider Family Medicine | DX: Z00.00 Encounter for general adult medical examination without abnormal findings (principal) ==

== ENCOUNTER 2023-08-31 09:40 | Day surgery (SDC) | payer MEDICARE, OTHER, SELFPAY ==
--- NOTE | 2023-08-25 09:10 | EKG12_ITS ---
Test Reason : PREOP Blood Pressure : / mmHG Vent. Rate : 066 BPM Atrial Rate : 066 BPM P-R Int : 176 ms QRS Dur : 082 ms QT Int : 372 ms P-R-T Axes : 055 062 031 degrees QTc Int : 389 ms Sinus rhythm with occasional Premature ventricular complexes T wave abnormality, consider lateral ischemia Abnormal ECG Confirmed by Sandro Singer ([id number]), editor greeting card CALISTA NAYLOR ([id number]) on 08/26/2023 8:48:41 AM Referred By: Cr Rojas Confirmed By:Sandro Singer
[2023-08-25 10:24] LABS: Hematocrit 42.9 % (37-47); Hemoglobin 13.8 g/dL (12.0-15.0); Mean Corp Hgb Conc 32.2 g/dL (32-36); Mean Corpuscular Hgb 30.3 pg (27.0-32.0); Mean Corpuscular Volume 94.3 fL (81-99); Mean Platelet Vol. 9.9 fl (6.2-12.0); Platelet Count 211 K/mm3 (150-450); RBC Distribution Width CV 12.6 % (11.6-14.6); RBC Distribution Width SD 43.2 fl (35.1-43.9); Red Blood Count 4.55 M/mm3 (4.2-5.4); White Blood Count 4.6 K/mm3 (4.4-11.0)
[2023-08-25 10:57] LABS: Anion Gap 7 (5-15); BUN 9 mg/dL (7-18); BUN/Creat Ratio 16.3 RATIO (10-20); Calcium,Total 9.4 mg/dL (8.5-10.1); Chloride 105 mmol/L (98-107); Creatinine, Serum 0.55 mg/dL (0.55-1.02); EST Glomerular Filtration Rate 114 mL/min (>60); Est Glom Filt Rate - Afr Amer 138 mL/min (>60); Glucose 110 mg/dL (74-106); Potassium 3.8 mmol/L (3.5-5.1); Sodium Level 138 mmol/L (136-145)
[2023-08-31] VITALS (8 sets, daily range): BP systolic 102–127; BP diastolic 56–76; PULSE 55–64; RESP 14–18; TEMP 36.1–37.2; O2SAT 92–100; BMI 24.5
--- NOTE | 2023-08-31 09:19 | BI_ITS ---
SURGICAL BREAST SPECIMEN RADIOGRAPH CLINICAL: Document presence of tissue clip marker in biopsy specimen. FINDINGS: Specimen shows presence of tissue clip marker. Electronically Signed: Tomer Jenkins MD at 12:00 EDT , BI/Breast Biopsy Specimen IMPRESSION: undefined
[2023-08-31] MEDS: Lactated Ringers 1,000 ML 15 ML IV (10:00)
--- NOTE | 2023-08-31 10:01 | DCINST_ITS ---
Discharge Instructions Procedure Breast Surgery Diet Discharge Diet: No restrictions Activity Discharge Activity: May Not Drive (for 2-3 days or while taking narcotic pain meds.) May shower in (days): 1 Lifting Restrictions: 10 pounds for 1 week. Dressing / Incision Call your doctor if your incision/area has: Continuous Slow Oozing and Sudden Increased Bleeding Call your doctor if you observe: Fever of 101 or Higher Suture Line Care: Avoid Pulling/Pushing and Avoid Pinching/Bending Remove Dressing in: 1 day Additional Dressing/Incision Instructions:: Remove bulky dressing tomorrow. May leave any opsite dressing for 3-4 days. Keep dressing in place until your follow-up appointment. Follow Up Care Test Results: Test results from this visit will be discussed in further detail at your follow- up appointment, if applicable. Discharge Plan Admission Attending Provider: Cr Rojas Primary Care Provider: Aleix Hwang Instructions Print Language: Citizen Of [place] Discharge Orders/Prescriptions Prescriptions: No Action biotin 10 mg tablet 10 mg PO DAILY polyethylene glycol 3350 [Miralax] 17 gram/dose powder 4 g PO DAILY PRN (Reason: constipation) ibuprofen 200 mg capsule 200 mg PO Q6H PRN (Reason: Pain) cholecalciferol (vitamin D3) 50 mcg (2,000 unit) tablet 50 mcg PO DAILY arthritic Smooth 4 tab PO DAILY omeprazole 20 mg capsule,delayed release(DR/EC) 20 mg PO DAILY PRN PRN (Reason: GERD) coenzyme Q10 100 mg tablet 100 mg PO DAILY melatonin 1 MG tablet 0.5 mg PO QHS alpha lipoic acid 200 MG capsule 200 mg PO DAILY phytonadione (vitamin K1) 100 MCG tablet 100 mcg PO DAILY potassium 99 mg tablet 198 mg PO DAILY calcium 600 mg capsule 600 mg PO DAILY nadolol 20 mg tablet 10 mg PO BID Qty: 90 3RF Referrals / Follow Up: Alexi Hwang PA [Primary Care Provider] - Disposition Disposition (needs filled in before D/C Order can be placed): Home, Self Care
--- NOTE | 2023-08-31 10:01 | PCM.HP.BLA ---
History and Physical Date of Admission: 08/31/23 Intake Visit Reasons: Discuss results of bx Chief Complaint: breast biopsy f/u [employer] Required: No Is patient in pain?: No Allergies Penicillins Allergy (Verified 08/18/23 13:02) OtherSulfa (Sulfonamide Antibiotics) Allergy (Verified 08/18/23 13:02) Otherterbinafine Adverse Reaction (Unknown, Verified 08/18/23 13:02) chest painerythromycin base (Erythromycin Base) Adverse Reaction (Verified 08/18/23 13:02) Nausea Medications ?Medication ?Instructions ?Recorded ?Confirmed ?Type alpha lipoic acid 200 mg capsule 200 mg PO DAILY supplement 04/12/19 08/18/23 History melatonin 1 mg tablet 0.5 mg PO QHS 04/12/19 08/18/23 History phytonadione (vitamin K1) 100 mcg 100 mcg PO DAILY supplement 09/20/19 08/18/23 History tablet biotin 10 mg tablet 10 mg PO DAILY 02/19/20 08/18/23 History ibuprofen 200 mg capsule 200 mg PO Q6H PRN Pain 08/28/21 08/18/23 History polyethylene glycol 3350 17 4 g PO DAILY PRN constipation 08/28/21 08/18/23 History gram/dose oral powder (Miralax) arthritic Smooth PO 01/19/23 08/18/23 History cholecalciferol (vitamin D3) 50 50 mcg PO DAILY 01/19/23 08/18/23 History mcg (2,000 unit) tablet coenzyme Q10 100 mg tablet 100 mg PO DAILY 01/19/23 08/18/23 History omeprazole 20 mg capsule,delayed 20 mg PO DAILY PRN 01/19/23 08/18/23 History release potassium 99 mg tablet 198 mg PO DAILY 01/19/23 08/18/23 History nadolol 20 mg tablet 10 mg (1/2 x 20 mg) PO BID bp #90 08/03/23 08/18/23 Rx tabs PFSH Medical History Non-rheumatic mitral regurgitation Syncope Wears glasses Post-menopausal Arthritis High cholesterol Back pain Cardiology follow-up encounter History of echocardiogram History of stress test History of irregular heartbeat Thyroid nodule Osteoarthritis Cardiac murmur Stage IV hemorrhoids Chronic constipation Premature ventricular contraction Nonrheumatic mitral (valve) prolapse Multiple thyroid nodules Skin lesion Sebaceous cyst Atrial premature contractions Colles' fracture of right radius Surgical History History of surgery on wrist Hx of colonoscopy Hx of bilateral cataract extraction Hx of breast biopsy S/P thyroid biopsy (~2015) S/P hemorrhoidectomy H/O foot surgery Family History Father HypertensionGrandfather Myocardial infarction Respiratory diseaseSister Arthritis Autoimmune disorderGrandmother Breast cancerMother Kidney disease Social History Smoking Status: Never smoker alcohol intake: never substance use type: does not use caffeine: No HPI HPI HPI: 73-year-old female returns to discuss breast biopsies. At the [facility] she had mammograms obtained suggesting on 3D imaging distortion in the upper outer quadrant of the right breast. When ultrasound was performed a density was seen. I was able to perform an ultrasound-guided biopsy right breast 10 o'clock position +6 cm on July 28, 2023 with pathology showing fragments of benign breast tissue with extensive elastosis and degenerative changes. 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 No evidence of malignancy. Because I was not clear that this represented the actual distortion seen on 3D mammogram [facility] under 3D stereotactic imaging of biopsy. They noted that the my previously placed clip was in the center of the previous area of distortion. Their final pathology demonstrates radial scar. They make comment however that the clip that they placed migrated lateral and superior from the center of the distortion. My previous notes reflect the following Chief Complaint: breast biopsy f/u Is patient in pain?: No Allergies Penicillins Allergy (Verified 08/01/23 12:26) OtherSulfa (Sulfonamide Antibiotics) Allergy (Verified 08/01/23 12:26) Otherterbinafine Adverse Reaction (Unknown, Verified 08/01/23 12:26) chest painerythromycin base [Erythromycin Base] Adverse Reaction (Verified 08/01/23 12:26) Nausea Medications alpha lipoic acid 200 mg capsule 200 mg PO DAILY supplement 04/12/19 [History Confirmed 08/01/23] melatonin 1 mg tablet 0.5 mg PO QHS 04/12/19 [History Confirmed 08/01/23] phytonadione (vitamin K1) 100 mcg tablet 100 mcg PO DAILY supplement 09/20/19 [History Confirmed 08/01/23] biotin 10 mg tablet 10 mg PO DAILY 02/19/20 [History Confirmed 08/01/23] ibuprofen 200 mg capsule 200 mg PO Q6H PRN Pain 08/28/21 [History Confirmed 08/01/23] polyethylene glycol 3350 17 gram/dose oral powder (Miralax) 4 g PO DAILY PRN constipation 08/28/21 [History Confirmed 08/01/23] nadolol 20 mg tablet 10 mg (1/2 x 20 mg) PO DAILY bp #45 tabs 12/16/22 [Rx Confirmed 08/01/23] arthritic Smooth PO 01/19/23 [History Confirmed 08/01/23] cholecalciferol (vitamin D3) 50 mcg (2,000 unit) tablet 50 mcg PO DAILY 01/19/23 [History Confirmed 08/01/23] coenzyme Q10 100 mg tablet 100 mg PO DAILY 01/19/23 [History Confirmed 08/01/23] omeprazole 20 mg capsule,delayed release 20 mg PO DAILY PRN 01/19/23 [History Confirmed 08/01/23] potassium 99 mg tablet 198 mg PO DAILY 01/19/23 [History Confirmed 08/01/23] PFSH Medical History Arthritis Atrial premature contractions Back pain Cardiac murmur Cardiology follow-up encounter Chronic constipation Colles' fracture of right radius High cholesterol History of echocardiogram History of irregular heartbeat History of stress test Multiple thyroid nodules Non-rheumatic mitral regurgitation Nonrheumatic mitral (valve) prolapse Osteoarthritis Post-menopausal Premature ventricular contraction Sebaceous cyst Skin lesion Stage IV hemorrhoids Syncope Thyroid nodule Wears glasses Surgical History H/O foot surgery History of surgery on wrist Hx of bilateral cataract extraction Hx of breast biopsy Hx of colonoscopy S/P hemorrhoidectomy S/P thyroid biopsy (~2015) Family History Father HypertensionGrandfather Myocardial infarction Respiratory diseaseSister Arthritis Autoimmune disorderGrandmother Breast cancerMother Kidney disease Social History Smoking Status: Never smoker alcohol intake: never substance use type: does not use caffeine: No HPI HPI HPI: 73-year-old female returns status post ultrasound-guided core biopsy upper outer quadrant right breast 10 o'clock position +6 cm that I assisted her with on July 27, 2023. My recent notes reflect the following Visit Reasons: BIRADS 4 Chief Complaint: right breast mass [employer] Required: No Is patient in pain?: No Allergies Penicillins Allergy (Verified 07/27/23 14:56) OtherSulfa (Sulfonamide Antibiotics) Allergy (Verified 07/27/23 14:56) Otherterbinafine Adverse Reaction (Unknown, Verified 07/27/23 14:56) chest painerythromycin base [Erythromycin Base] Adverse Reaction (Verified 07/27/23 14:56) Nausea Medications alpha lipoic acid 200 mg capsule 200 mg PO DAILY supplement 04/12/19 [History Confirmed 07/27/23] melatonin 1 mg tablet 0.5 mg PO QHS 04/12/19 [History Confirmed 07/27/23] phytonadione (vitamin K1) 100 mcg tablet 100 mcg PO DAILY supplement 09/20/19 [History Confirmed 07/27/23] biotin 10 mg tablet 10 mg PO DAILY 02/19/20 [History Confirmed 07/27/23] ibuprofen 200 mg capsule 200 mg PO Q6H PRN Pain 08/28/21 [History Confirmed 07/12/23] polyethylene glycol 3350 17 gram/dose oral powder (Miralax) 4 g PO DAILY PRN constipation 08/28/21 [History Confirmed 07/27/23] nadolol 20 mg tablet 10 mg (1/2 x 20 mg) PO DAILY bp #45 tabs 12/16/22 [Rx Confirmed 07/27/23] arthritic Smooth PO 01/19/23 [History Confirmed 07/27/23] cholecalciferol (vitamin D3) 50 mcg (2,000 unit) tablet 50 mcg PO DAILY 01/19/23 [History Confirmed 07/27/23] coenzyme Q10 100 mg tablet 100 mg PO DAILY 01/19/23 [History Confirmed 07/27/23] omeprazole 20 mg capsule,delayed release 20 mg PO DAILY PRN 01/19/23 [History Confirmed 07/27/23] potassium 99 mg tablet 198 mg PO DAILY 01/19/23 [History Confirmed 07/27/23] PFSH Medical History Arthritis Atrial premature contractions Back pain Cardiac murmur Cardiology follow-up encounter Chronic constipation Colles' fracture of right radius High cholesterol History of echocardiogram History of irregular heartbeat History of stress test Multiple thyroid nodules Non-rheumatic mitral regurgitation Nonrheumatic mitral (valve) prolapse Osteoarthritis Post-menopausal Premature ventricular contraction Sebaceous cyst Skin lesion Stage IV hemorrhoids Syncope Thyroid nodule Wears glasses Surgical History H/O foot surgery History of surgery on wrist Hx of bilateral cataract extraction Hx of breast biopsy Hx of colonoscopy S/P hemorrhoidectomy S/P thyroid biopsy (~2016) Family History Father HypertensionGrandfather Myocardial infarction Respiratory diseaseSister Arthritis Autoimmune disorderGrandmother Breast cancerMother Kidney disease Social History Smoking Status: Never smoker alcohol intake: never substance use type: does not use caffeine: No HPI HPI HPI: 73-year-old female is referred by Wallace Hwang PA-C for surgical consultation regarding an abnormal mammogram and a written copy my surgical consult recommendations will be referred to him. The patient had imaging performed at [facility] with diagnostic right breast mammograms July 10, 2023 suggesting irregular architectural distortion in the upper outer aspect right breast. Possible carcinoma or radial scar. The patient had an ultrasound performed suggesting a 1 x 0.6 x 0.4 cm oval lesion right breast 10 o'clock position +6 cm. This is felt to correlate with the mammography. BI-RADS 4 suspicious. Ultrasound-guided biopsy recommended. By report by the radiologist the degree of distortion in the upper outer quadrant of the right breast has been present dating back to 2013. Post ultrasound biopsy recommended to assure that marking clip correlates and if not then additionally pursuing a stereotactic biopsy. I have personally reviewed the patient's images and the mammograms are more subtle. 73-year-old female. G1, . First child was born when she was 28. Menarche at age 10. She did not breast-feed. I have assisted her with an excisional medial left breast biopsy for cystic lesion. She has not been on any estrogen replacement. Maternal grandmother had breast cancer. She has had some tenderness in the upper outer quadrant of the right breast without mass. No nipple discharge or bleeding. ROS General General: Yes fatigue; No weight change, appetite, colon cancer, breast cancer or weakness HEENT HEENT: Yes eye injury and eye surgery; No difficulty swallowing, swollen glands or hoarseness Endo Endocrine: Yes thyroid disease; No diabetes mellitus, thyroid cancer, Hair loss, heat intolerance or cold intolerance Skin Skin: No rash or changing moles Breast Breast: No left breast lump, right breast lump, nipple discharge, breast pain, abnormal mammogram, abnormal US or breast enlargement Musc Musculoskeletal: Yes back problems and arthritis; No rheumatoid arthritis, gout or joint pain Cardio Cardiovascular: No murmur, pacemaker, heart disease, atrial fibrillation, high blood pressure, heart attack, heart stent, palpitations, shortness of breat with exertion or chest pain Psych Psychiatric: No depression, anxiety or hearing voices Resp Respiratory: No shortness of breath, No sleep apnea, No cough, No COPD, No asthma, No emphysema and No wheezing Gastro Gastrointestinal: No abdominal pain, No nausea or vomiting, No diarrhea, Yes constipation, No blood in stool, No acid reflux, Yes hemorrhoids, No ulcers, No gallbladder problem and No black,tarry stools Paulino Hematologic: No blood thinners, No blood disorders, No bleeding, No anemia and No blood clots Neuro Neurologic: No system reviewed and no additional complaints, except as documented, No as per HPI, No abnormal gait, No abnormal hearing, No abnormal movements, No abnormal speech, No behavioral changes, No burning sensations, No confusion, No convulsions, No disequilibrium, No dizziness, No localized weakness, No frequent falls, No headache(s), No lack of coordination, No loss of vision, No memory loss, No numbness, No other visual disturbances, No radicular pain, No restless legs, No sensory deficit, No syncope, No tingling, No tremor(s), No weakness and No other Exam Const General: cooperative, healthy appearing, comfortable and no acute distress Nutritional Appearance: average body habitus [facility] Head: normal to inspection Eyes General: appearance normal, both eyes and all related structures Neck Neck: normal visual inspection Chest Other: Right breast: No focal mass. No nipple discharge. No axillary or clavicular adenopathy. Some tenderness in the upper outer quadrant right breast though without mass. Left breast: No focal mass. No nipple discharge. No axillary or clavicular adenopathy. Again some slight tenderness in the upper outer quadrant of the left breast. Resp Effort & Inspection: normal respiratory effort Auscultation: clear to auscultation bilaterally Cardio Rate: regular rate Rhythm: regular rhythm GI Inspection: normal to inspection Palpation: soft and no hepatosplenomegaly Musc Cervical Spine: normal cervical lordosis Skin General: no rashes or lesions noted Neuro General: patient alert, patient awake and patient oriented x3 Extrem General: no calf tenderness Psych Appearance: grossly normal Office Procedures Biopsy Provider Documentation Ultrasound-guided needle core biopsy upper outer quadrant right breast 10 o'clock position +6 cm Timeout informed consent was obtained. Patient was taken the procedure room placed upon the table and then a right shoulder roll was placed. The upper outer quadrant of the right breast was prepped and draped routine fashion with Betadine. Ultrasound was performed demonstrating the 1 cm diameter density as identified on preoperative imaging. Under ultrasound guidance 1% lidocaine mixed 50-50 with 0.5% Marcaine was used as a local anesthetic. A total of 9 cc was used. The lesion was able to be raised partly from its deeper position. A small stab incision was created. A 14-gauge Monopty needle was advanced to prefire depth. 3 separate cores were obtained. A marking clip was left nicely within position. Pressure was held for hemostasis. The cores were immediately transferred to formalin for analysis. Steri-Strip Telfa OpSite dressing applied. She tolerated the procedure very well with no apparent complication. A follow-up right unilateral mammogram will be obtained. Office follow-up will be scheduled. Cr Rojas M.D., F.A.C.S. Biopsy Breast Biopsy: 50099 US Guidance Procedure Time Out Time Out Informed consent given: Yes Consent signed: Yes Time out checklist: patient, procedure, site marked/identified, positioning of patient, supplies available, allergies confirmed and team agrees on procedure Time out staff in room: Yes Time out verified: Yes Time out date: 07/27/23 Time out time: 15:20 Assessment and Plan Assessment and Plan (1) Abnormal mammogram of right breast: Status: Acute Plan: Successful ultrasound-guided needle core biopsy upper outer quadrant right breast 10 o'clock position +6 cm. Postprocedural mammograms pending. Office follow-up scheduled. Concern is over a focal density as well as suspected radial scar. I appreciate the ongoing opportunity of assisting with her surgical care. Copy: AIXA Ward M.D., F.A.C.S [facility] General General: Yes fatigue; No weight change, appetite, colon cancer, breast cancer or weakness HEENT HEENT: Yes eye injury and eye surgery; No difficulty swallowing, swollen glands or hoarseness Endo Endocrine: Yes thyroid disease; No diabetes mellitus, thyroid cancer, Hair loss, heat intolerance or cold intolerance Skin Skin: No rash or changing moles Breast Breast: No left breast lump, right breast lump, nipple discharge, breast pain, abnormal mammogram, abnormal US or breast enlargement Musc Musculoskeletal: Yes back problems and arthritis; No rheumatoid arthritis, gout or joint pain Cardio Cardiovascular: No murmur, pacemaker, heart disease, atrial fibrillation, high blood pressure, heart attack, heart stent, palpitations, shortness of breat with exertion or chest pain Psych Psychiatric: No depression, anxiety or hearing voices Resp Respiratory: No shortness of breath, No sleep apnea, No cough, No COPD, No asthma, No emphysema and No wheezing Gastro Gastrointestinal: No abdominal pain, No nausea or vomiting, No diarrhea, Yes constipation, No blood in stool, No acid reflux, Yes hemorrhoids, No ulcers, No gallbladder problem and No black,tarry stools Paulino Hematologic: No blood thinners, No blood disorders, No bleeding, No anemia and No blood clots Neuro Neurologic: No system reviewed and no additional complaints, except as documented, No as per HPI, No abnormal gait, No abnormal hearing, No abnormal movements, No abnormal speech, No behavioral changes, No burning sensations, No confusion, No convulsions, No disequilibrium, No dizziness, No localized weakness, No frequent falls, No headache(s), No lack of coordination, No loss of vision, No memory loss, No numbness, No other visual disturbances, No radicular pain, No restless legs, No sensory deficit, No syncope, No tingling, No tremor(s), No weakness and No other Assessment and Plan Assessment and Plan (1) Abnormal mammogram of right breast: Status: Acute Plan: Final pathology is pending. Preliminary suggest fragments of benign breast tissue with extensive and then the next word is blank. Negative for atypia and malignancy. I reviewed personally her mammograms. The radiology interpretation is simply marking clip present. I have explained this to the patient as well. We also discussed the fact that the [facility] radiology department suggested that the area of distortion has been present since 2013. I will await final pathology. At this point my current plan of approach is to allow her to resolved from the biopsy and then plan on obtaining a MRI of the breast approximately 6 weeks from now. To the best of my ability I believe that this is a benign finding. I believe that the marking clip correlates closely to the area of suspected distortion. I need further confirmation of this however. Copy: AIXA Ward M.D., F.A.C.S. ROS General General: Yes fatigue; No weight change, appetite, colon cancer, breast cancer or weakness HEENT HEENT: Yes eye injury and eye surgery; No difficulty swallowing, swollen glands or hoarseness Endo Endocrine: Yes thyroid disease; No diabetes mellitus, thyroid cancer, Hair loss, heat intolerance or cold intolerance Skin Skin: No rash or changing moles Breast Breast: No left breast lump, right breast lump, nipple discharge, breast pain, abnormal mammogram, abnormal US or breast enlargement Musc Musculoskeletal: Yes back problems and arthritis; No rheumatoid arthritis, gout or joint pain Cardio Cardiovascular: No murmur, pacemaker, heart disease, atrial fibrillation, high blood pressure, heart attack, heart stent, palpitations, shortness of breat with exertion or chest pain Psych Psychiatric: No depression, anxiety or hearing voices Resp Respiratory: No shortness of breath, No sleep apnea, No cough, No COPD, No asthma, No emphysema and No wheezing Gastro Gastrointestinal: No abdominal pain, No nausea or vomiting, No diarrhea, Yes constipation, No blood in stool, No acid reflux, Yes hemorrhoids, No ulcers, No gallbladder problem and No black,tarry stools Paulino Hematologic: No blood thinners, No blood disorders, No bleeding, No anemia and No blood clots Neuro Neurologic: No system reviewed and no additional complaints, except as documented, No as per HPI, No abnormal gait, No abnormal hearing, No abnormal movements, No abnormal speech, No behavioral changes, No burning sensations, No confusion, No convulsions, No disequilibrium, No dizziness, No localized weakness, No frequent falls, No headache(s), No lack of coordination, No loss of vision, No memory loss, No numbness, No other visual disturbances, No radicular pain, No restless legs, No sensory deficit, No syncope, No tingling, No tremor(s), No weakness and No other Assessment and Plan Assessment and Plan (1) Radial scar of right breast: Status: Acute Plan: Although neither biopsy demonstrates malignancy the stereotactic biopsy suggests radial scar. Standard of care I believe still recommends excisional biopsy of said area and I concur. More over this area was present in 2013 and yet not commented upon. I think it is pertinent to the patient to do a stereotactic wire localization upper outer quadrant right breast based upon my clip placement as my clip placement is centered in the area of previous distortion in this area contact clip is not. The patient's had an opportunity to ask and have questions answered. I appreciate the ongoing option of assisting with her surgical care. She is aware that final pathology may simply continue to demonstrate dense fibrous tissue or radial scar or there is the potential for malignancy. I do not believe that a sentinel node biopsy should be performed based upon radial scar pathology at this time. Copy: Wallace Rojas M.D., F.A.C.S. I have examined the patient and the H&P has been reviewed. There are no clinical changes since date of exam. Cr Rojas M.D., F.A.C.S.
--- NOTE | 2023-08-31 10:36 | PCM.OPRPT ---
Problems Associated Problem List Diagnoses (1) Radial scar of right breast: Report of Operation Date of Procedure: 08/31/23 Pre-Operative Diagnosis: Radial scar upper outer quadrant right breast Post-Operative Diagnosis: Same Surgery/Procedure Performed:: Stereotactic wire localization upper outer quadrant right breast with wire localized lumpectomy upper outer quadrant right breast Description of Surgical Findings:: Timeout informed consent was obtained. The patient was taken to the mammography suite she was placed prone on the stereotactic table the right breast was placed in a lateral medial view the marking clip in question is rapidly identified stereotactic images were obtained digital information was obtained on a single target site which was my marking clip. The breast was prepped with Betadine. 1 cc of 1% lidocaine was used as a local anesthetic. A 20-gauge Kopan's needle was advanced to depth +15 mm. Wire was displaced. Follow-up images demonstrated good visualization. Sterile dressings were applied. The patient was subsequently taken to the operating for planned complete excision. No complications. The patient was taken to the operating room. She was placed supine on the table. She underwent general anesthesia. The right arm was placed at right angles to the table. The right breast axillary area was sterilely prepped and draped. A curvilinear incision was made in the operative, the right breast guided by the wire electrocautery dissection was performed lateral to medially. Circumferential dissection was performed around it was felt to be the previous biopsy sites. The specimen was removed. The left wire was exiting laterally. And a long suture superiorly. Specimen mammograms were obtained demonstrating the 2 previous marking clips to be excised with my marking clip the one most centered within the previous area of concern to be centered within the specimen. Hemostasis was assured with interrupted 3-0 Vicryl sutures and electrocautery. 4 small hemoclips were placed at the periphery to roberto the previous excision site. Hemostasis was intact. The wound was brought together in layers with interrupted 3-0 Vicryl. Skin edges approximated running subicular 4-0 Monocryl. Steri-Strips Telfa OpSite dressing applied bulky dressing.. The wound and skin was anesthetized with 30 cc of 0.5% Marcaine. Sponge and instrument and needle counts were reported the surgeon to be correct. Specimens right breast mass wire localized. Drains none. Blood loss minimal. The patient was taken the recovery room in satisfied condition without apparent complication Cr Rojas M.D., F.A.C.S. Surgeon: Cr Rojas Type of Anesthesia: General and Local Anesthesiologist: Justin Rehman
[2023-08-31] MEDS: Clindamycin 900 MG/50 ML BAG 75 MG IV (10:58)
--- NOTE | 2023-08-31 11:27 | BREAST_PTH ---
PATIENT: SORAYA MAURICIO LOC: [facility] U#:[id number] AGE/SX: 73/F ROOM: RE08/31/[address]: Dr. Cr Rojas MD : 1950 BED: DIS: 08/31/2023 SPEC #: [id number] RECD: 08/31/23 11:36 STATUS: JOSE LEAHY #: [id number] DEE DEE: 08/31/23 11:[address]: Cr Rojas DEPT: SURGICAL PATHOLOGY RECD BY: Cindy Friedman ENTERED: 08/31/23 11:45 SP TYPE: BREAST OTHR DR: COLLEEN Hicks Tissues: Right breast, NOS Procedures: Surgery Specimen Level V HEADER OPERATION: Right stereo wire localization excision, breast mass or biopsy PRE-OP DIAGNOSIS: Radial scar TISSUE SUBMITTED: Right breast mass- wire comes lateral, short suture anterior, long suture superior MICROSCOPIC DIAGNOSIS Right breast mass, wire localization excisional biopsy: Fibrocystic changes, adenosis and intraductal hyperplasia without atypia. A minute fibroadenoma (0.2cm in greatest dimension). A benign intramammary lymph node. Frequent microcalcifications. Changes consistent with previous biopsy site. Negative for malignancy. See comment. AKIKO/ 09/05/2023 COMMENT Please make reference to previous specimen [id number], right breast, core biopsy with diagnosis of fragments of benign breast tissue with extensive elastosis and degenerative changes, focal intraductal hyperplasia without atypia. MICROSCOPIC DESCRIPTION Slides are reviewed. GROSS DESCRIPTION Received in fresh and post fixed in formalin is one container labeled with the patient's name and designated Right breast mass. The specimen consists of an oriented fragment of pittman-yellow fibrofatty tissue containing a metallic wire and measuring 5.0 x 3.5 x 2.5cm and weighing 20.2gm. The specimen is inked as follows: anterior - yellow, posterior - black, superior - blue, inferior - green, medial - red and lateral - orange. Serial sections reveal a rubbery yellow-white cut surface. No distinct mass lesion is identified. The specimen is sectioned and totally submitted in 12 cassettes after additional fixation. AM/mr 09/01/2023 TC:5 CPT:17837 Ischemic Time: 1 minute Fixation Time: 8 hours
[2023-08-31] MEDS: Bupivacaine Mpf 0.5% 30 ML VIAL (11:35)
== END 2023-08-31 14:29 | disposition home or self-care (01) ==
LOC: SDC 09:40 → AC 09:40
PROVIDERS: PCP Physician Assistant; Referring Provider Surgery; Visit Provider Surgery
PROC: (CPT 19125; principal; 2023-08-31 11:25)
DX: D24.1 Benign neoplasm of right breast (principal); N60.21 Fibroadenosis of right breast; R92.0 Mammographic microcalcification found on diagnostic imaging of breast; E78.00 Pure hypercholesterolemia, unspecified; Z79.899 Other long term (current) drug therapy
CPT/HCPCS: 19125; 19281; 36415; 76098; 80048; 85027; 88307; 93005; A4648; J2405

== ENCOUNTER 2023-09-22 08:00 | Outpatient (RCR) | payer SELFPAY | END 2023-10-02 23:59 | LOC: CR 08:00 | PROVIDERS: PCP Physician Assistant; Referring Provider Family Medicine; Visit Provider Family Medicine | DX: Z00.00 Encounter for general adult medical examination without abnormal findings (principal) ==

== ENCOUNTER 2023-10-27 08:00 | Outpatient (RCR) | payer SELFPAY | END 2023-11-02 23:59 | LOC: CR 08:00 | PROVIDERS: PCP Physician Assistant; Referring Provider Family Medicine; Visit Provider Family Medicine | DX: Z00.00 Encounter for general adult medical examination without abnormal findings (principal) ==

== ENCOUNTER → 2023-11-16 | Outpatient (CLI) | payer SELFPAY ==
[2023-11-16 11:02] LABS: SERUM TEARS COLLECTION SPECIMEN PROCESSED
== END | disposition home or self-care (01) ==
PROVIDERS: PCP Physician Assistant; Referring Provider Ophthalmology; Visit Provider Ophthalmology
DX: Z00.00 Encounter for general adult medical examination without abnormal findings (principal)
CPT/HCPCS: 36415

== ENCOUNTER 2023-11-29 08:00 | Outpatient (RCR) | payer SELFPAY | END 2023-12-03 23:59 | LOC: CR 08:00 | PROVIDERS: PCP Physician Assistant; Referring Provider Family Medicine; Visit Provider Family Medicine | DX: Z00.00 Encounter for general adult medical examination without abnormal findings (principal) ==

== ENCOUNTER 2023-12-29 08:00 | Outpatient (RCR) | payer SELFPAY | END 2024-01-02 23:59 | LOC: CR 08:00 | PROVIDERS: PCP Physician Assistant; Referring Provider Family Medicine; Visit Provider Family Medicine | DX: Z00.00 Encounter for general adult medical examination without abnormal findings (principal) ==

== ENCOUNTER 2024-02-02 08:00 | Outpatient (RCR) | payer SELFPAY | END 2024-02-02 23:59 | LOC: CR 08:00 | PROVIDERS: PCP Physician Assistant; Referring Provider Family Medicine; Visit Provider Family Medicine | DX: Z00.00 Encounter for general adult medical examination without abnormal findings (principal) ==

== ENCOUNTER → 2024-02-07 | Outpatient (CLI) | payer MEDICARE, OTHER, SELFPAY ==
--- NOTE | 2024-02-07 08:01 | US_ITS ---
STUDY: THYROID ULTRASOUND REASON FOR EXAM: Female, 73 years old. Thyroid nodule TECHNIQUE: Ultrasound evaluation of the thyroid was performed with real-time and static pablo-scale imaging. COMPARISON: 02/03/2018 FINDINGS: RIGHT LOBE: The right lobe of the thyroid gland measures 5.0 x 2.7 x 2.3 cm. There is a heterogeneous echotexture. Nodule 1: Enlarging (27 x 15 x 20 mm from 18 x 14 x 18 mm) solid isoechoic wider than tall ill-defined margin nodule were no echogenic foci (TR 3) in the superior right lobe for which ultrasound-guided biopsy is recommended. Nodule 2: No change in the 14 x 17 x 13 mm solid isoechoic taller than wide ill-defined marginated nodule with no echogenic foci (TR 4) in the inferior right lobe for which ultrasound-guided biopsy is recommended if never performed. LEFT LOBE: The left lobe of the thyroid gland measures 5.2 x 2.0 x 1.6 cm. There is a heterogeneous echotexture. There are no demonstrated solid, cystic or complex lesions. ISTHMUS: The isthmus measures 1 mm thick. . The regional lymph nodes are normal. US/Thyroid IMPRESSION: Enlarging nodule in the right lobe for which ultrasound-guided biopsy is recommended if never performed. Follow-up ultrasound is recommended one year. Electronically Signed: Rohit Butler MD at 9:29 EST ,
== END | disposition home or self-care (01) ==
LOC: US 08:01
PROVIDERS: PCP Physician Assistant; Referring Provider Surgery; Visit Provider Surgery
DX: E04.1 Nontoxic single thyroid nodule (principal)
CPT/HCPCS: 76536

== ENCOUNTER 2024-02-28 08:00 | Outpatient (RCR) | payer SELFPAY | END 2024-03-03 23:59 | LOC: CR 08:00 | PROVIDERS: PCP Physician Assistant; Referring Provider Family Medicine; Visit Provider Family Medicine | DX: Z00.00 Encounter for general adult medical examination without abnormal findings (principal) ==

== ENCOUNTER → 2024-03-15 | Outpatient (CLI) | payer MEDICARE, OTHER, SELFPAY ==
--- NOTE | 2024-03-15 13:30 | FLU_PTH ---
PATIENT: SORAYA MAURICIO LOC: [facility] U#:[id number] AGE/SX: 73/F ROOM: RE03/15/[address]: Dr. Sandro Garcia MD : 1950 BED: DIS: 03/15/2024 SPEC #: [id number] RECD: 03/15/24 14:23 STATUS: JOSE REQ #: [id number] DEE DEE: 03/15/24 13:[address]: Sandro Garcia DEPT: CYTOLOGY RECD BY: Cindy Friedman ENTERED: 03/16/24 08:09 SP TYPE: Fluid OTHR DR: Dominga [facility] [place] Tissues: A - Thyroid gland, NOS B - Thyroid gland, NOS Procedures: Special Stain Group II Surgery Specimen Level IV Cytospin Fluid Cytology Other HEADER OPERATION: Fine needle aspiration of right thyroid nodule PRE-OP DIAGNOSIS: Right thyroid nodule TISSUE SUBMITTED: A- Right superior nodule fluid, B- Right superior nodule slides DIAGNOSIS CYTOLOGY A. Right superior nodule fluid, fine needle aspiration (cytospins and cellblock): Consistent with benign follicular/colloid nodule, [place] Category II. Adequate for evaluation. B. Right superior nodule, fine needle aspiration (smears): Consistent with benign follicular/colloid nodule, [place] Category II. Adequate for evaluation. SJ. 03/20/2024 COMMENT Correlation with clinical, radiologic findings and appropriate follow up are necessary. The [place] System for thyroid diagnostic categorization was used in the evaluation of this case. CYTOLOGY STUDY Slides are reviewed. CYTOLOGY GROSS A. Received is 30 ml of red-cloudy fluid labeled with the patient's name and and designated per the requisition as Right superior nodule. Submitted for cytology preparation including cell block. B. Received are 4 smears labeled with the patient's name and designated per the requisition as Right superior nodule. Submitted for staining. Mr 03/16/2024 TC:5 CPT: 71024d3,83924
== END | disposition home or self-care (01) ==
LOC: LABSPEC 14:31
PROVIDERS: Referring Provider Surgery; Visit Provider Surgery
DX: E04.1 Nontoxic single thyroid nodule (principal)
CPT/HCPCS: 88108; 88161; 88305; 88313

== ENCOUNTER 2024-04-03 08:00 | Outpatient (RCR) | payer SELFPAY | END 2024-04-03 23:59 | LOC: CR 08:00 | PROVIDERS: Referring Provider Family Medicine; Visit Provider Family Medicine | DX: Z00.00 Encounter for general adult medical examination without abnormal findings (principal) ==

== ENCOUNTER → 2024-05-02 | Outpatient (CLI) | payer SELFPAY ==
[2024-05-02 13:32] LABS: SERUM TEARS COLLECTION SPECIMEN PROCESSED
== END | disposition home or self-care (01) ==
LOC: LAB 11:28
PROVIDERS: Referring Provider Ophthalmology; Visit Provider Ophthalmology
DX: Z00.00 Encounter for general adult medical examination without abnormal findings (principal)

== ENCOUNTER 2024-05-03 08:00 | Outpatient (RCR) | payer SELFPAY | END 2024-05-04 23:59 | LOC: CR 08:00 | PROVIDERS: Referring Provider Family Medicine; Visit Provider Family Medicine | DX: Z00.00 Encounter for general adult medical examination without abnormal findings (principal) ==

== ENCOUNTER 2024-05-31 08:00 | Outpatient (RCR) | payer SELFPAY | END 2024-06-01 23:59 | LOC: CR 08:00 | PROVIDERS: Referring Provider Family Medicine; Visit Provider Family Medicine | DX: Z00.00 Encounter for general adult medical examination without abnormal findings (principal) ==

== ENCOUNTER → 2024-06-05 | Outpatient (CLI) | payer MEDICARE, OTHER, SELFPAY ==
[2024-06-05 13:06] LABS: Absolute Lymphocyte Count 0.95 X10^3/uL (0.83-4.51); Absolute Neutrophil Count 3.5 X10^3/uL (2.0-7.7); Basophil# 0.03 X10^3/uL; Basophil% 0.6 % (0-1); Hematocrit 41.2 % (37-47); Hemoglobin 13.7 g/dL (12.0-15.0); Lymphocyte # 0.95 X10^3/ul (0.83-4.51); Lymphocyte % 19.6 % (19-41); Mean Corp Hgb Conc 33.3 g/dL (32-36); Mean Corpuscular Hgb 31.1 pg (27.0-32.0); Mean Corpuscular Volume 93.4 fL (81-99); Mean Platelet Vol. 9.8 fl (6.2-12.0); Monocyte# 0.37 X10^3/uL; Monocyte% 7.6 % (0-10); NRBC Flagged by Analyzer 0 % (0-5); Neutrophil # 3.48 X10^3/uL (2.7-7.7); Neutrophil % 71.8 % (47-70); Platelet Count 216 K/mm3 (150-450); RBC Distribution Width SD 44.4 fl (35.1-43.9); Red Blood Count 4.41 M/mm3 (4.2-5.4); White Blood Count 4.9 K/mm3 (4.4-11.0)
[2024-06-05 13:25] LABS: EST Glomerular Filtration Rate 95 (>60)
[2024-06-05 13:42] LABS: ALB/GLOB Ratio 1.6 RATIO (0.9-2.4); AST(SGOT) 26 U/L (<=31); Alanine Aminotransfer ALT/SGPT 15 U/L (<=34); Albumin, Serum 4.1 g/dL (3.4-4.8); Alkaline Phosphatase 67 U/L (35-104); Anion Gap 12 (5-15); BUN 6 mg/dL (4-19); Calcium,Total 9.5 mg/dL (7.6-11.0); Carbon Dioxide 25.5 mmol/L (21.0-32.0); Chloride 103 mmol/L (98-108); Cholesterol 249 mg/dL (<=200); Creatinine, Serum 0.53 mg/dL (0.70-1.20); Globulin 2.6 g/dL (2.2-4.2); Glucose 99 mg/dL (70-99); High Density Lipoprotein 56 mg/dL; Low Density Lipoprotein Calc. 164 mg/dL; Protein, Total 6.6 g/dL (5.9-8.4); Sodium Level 140 mmol/L (133-145); Total Bilirubin 0.33 mg/dL (0.00-1.30); Triglycerides 145 mg/dL; Very Low Density Lipoprotein 29 mg/dL (5-40); Vitamin B12 538 pg/mL (180-914); Vitamin D,25 Hydroxy 57.9 ng/mL (30-100); cholesterol:hdl ratio screen 4.48
== END | disposition home or self-care (01) ==
LOC: VSLAB 10:09
PROVIDERS: PCP Nurse Practitioner Family; Visit Provider Nurse Practitioner Family
DX: E78.5 Hyperlipidemia, unspecified (principal); M81.0 Age-related osteoporosis without current pathological fracture; E04.1 Nontoxic single thyroid nodule; G31.84 Mild cognitive impairment of uncertain or unknown etiology; R00.2 Palpitations
CPT/HCPCS: 36415; 80053; 80061; 82306; 82607; 84439; 84443; 85025

== ENCOUNTER 2024-06-28 08:00 | Outpatient (RCR) | payer SELFPAY | END 2024-07-02 23:59 | LOC: CR 08:00 | PROVIDERS: Referring Provider Family Medicine; Visit Provider Family Medicine | DX: Z00.00 Encounter for general adult medical examination without abnormal findings (principal) ==

== ENCOUNTER → 2024-07-27 | Outpatient (CLI) | payer MEDICARE, OTHER, SELFPAY ==
--- NOTE | 2024-07-27 13:11 | BI_ITS ---
EXAM: SCRN MAMM (CAD)W/PEGGY BILAT DATE: 07/27/2024 CLINICAL HISTORY: F, Age 74 y/o , SCREENING History of right breast lumpectomy for radial scar. History of left breast biopsy which was benign. BREAST CANCER RISK ASSESSMENT: Has not been calculated. TECHNIQUE: Bilateral screening digital breast tomosynthesis with 2D and 3D images. Computer aided detection. COMPARISON: Prior exam(s) dated 07/27/2023, 07/20/2023, and 01/11/2023. FINDINGS: TISSUE DENSITY: The breast tissue is heterogenously dense, which may obscure small masses. Bilateral Breast Mammographic Findings: No suspicious masses, suspicious cluster of microcalcifications, architectural distortion or secondary sign of malignancy is identified in either breast. Stable nodular densities are sick breast. Surgical clips are seen in the right breast from her prior lumpectomy. BI/SCRN MAMM (CAD)W/PEGGY BILAT IMPRESSION: OVERALL FINAL ASSESSMENT: BIRADS 2 BENIGN FINDING RECOMMENDATION: Routine annual follow-up in 1 Year A letter with findings and recommendations will be mailed to the patient. Reading Location: [id number]
== END | disposition home or self-care (01) ==
LOC: OPBI 13:09
PROVIDERS: Referring Provider Nurse Practitioner Family; Visit Provider Nurse Practitioner Family
DX: Z12.31 Encounter for screening mammogram for malignant neoplasm of breast (principal)
CPT/HCPCS: 77063; 77067

== ENCOUNTER → 2024-07-30 | Outpatient (CLI) | payer MEDICARE, OTHER, SELFPAY ==
--- NOTE | 2024-07-30 14:00 | MRI_ITS ---
PROCEDURE: BRAIN WITHOUT CONTRAST (MRIBR), 07/30/2024 REASON FOR EXAM: MILD COGNITIVE IMPAIRMENT. TREMOR. COMPARISON: None. TECHNIQUE: Multisequence multiplanar MRI brain was performed without intravenous contrast. Contrast: None. FINDINGS: Cerebrum: No visible acute infarct, mass, or appreciable acute intracranial hemorrhage. Mild patchy supratentorial white matter abnormalities, nonspecific but compatible with chronic microvascular ischemic changes. Minimal cerebral volume loss. Suspect a prominent perivascular space more likely than a remote lacunar infarct in the RIGHT putamen inferiorly. Ovoid cystic lesion along the medial anteroinferior thalamus projecting into the 3rd ventricle and abutting the midbrain/mammillary bodies superiorly measures 14 x 12 x 8 mm. This also abuts the basilar tip. This appears minimally T1 hyperintense to CSF on one sequence but otherwise follows CSF signal intensity. Cerebellum: Unremarkable. Brainstem: Unremarkable. Ventricles/extra-axial spaces: As above, otherwise age-appropriate appropriate appearance. Major flow voids: Grossly unremarkable within limits of nondedicated technique. Paranasal sinuses: Unremarkable. Scalp/calvarium: Unremarkable. Orbits: Bilateral cataract surgery. Other: None. MRI/Brain without Contrast IMPRESSION: 1. No specific evidence of an acute intracranial process. Mild patchy supraten torial white matter abnormalities are nonspecific but compatible with chronic microvascular ischemic changes. Minimal diffuse ce rebral volume loss. 2. 14 mm cystic lesion along the medial LEFT thalamus projecting into the 3rd v entricle. Differential considerations include a neuroglial cyst, ependymal cyst, cystic neoplasm, or perhaps neurocysticercosis . Recommend clinical follow-up including MRI brain with and without IV contrast. Comparison with any available outside imag ing may also be helpful to assess stability. 3. Additional description as above. Reading Location: [id number]
== END | disposition home or self-care (01) ==
LOC: MRI 13:24
PROVIDERS: PCP Nurse Practitioner Family; Referring Provider Psychiatry & Neurology Neurology; Visit Provider Psychiatry & Neurology Neurology
DX: G31.84 Mild cognitive impairment of uncertain or unknown etiology (principal)
CPT/HCPCS: 70551

== ENCOUNTER 2024-07-31 08:00 | Outpatient (RCR) | payer SELFPAY | END 2024-08-01 23:59 | LOC: CR 08:00 | PROVIDERS: Referring Provider Family Medicine; Visit Provider Family Medicine | DX: Z00.00 Encounter for general adult medical examination without abnormal findings (principal) ==

== ENCOUNTER 2024-08-30 08:00 | Outpatient (RCR) | payer SELFPAY | END 2024-09-01 23:59 | LOC: CR 08:00 | PROVIDERS: PCP Nurse Practitioner Family; Referring Provider Family Medicine; Visit Provider Family Medicine | DX: Z00.00 Encounter for general adult medical examination without abnormal findings (principal) ==

== ENCOUNTER 2024-09-27 08:00 | Outpatient (RCR) | payer SELFPAY | END 2024-10-01 23:59 | LOC: CR 08:00 | PROVIDERS: PCP Nurse Practitioner Family; Referring Provider Family Medicine; Visit Provider Family Medicine | DX: Z00.00 Encounter for general adult medical examination without abnormal findings (principal) ==

== ENCOUNTER 2024-11-01 08:00 | Outpatient (RCR) | payer SELFPAY | END 2024-11-01 23:59 | LOC: CR 08:00 | PROVIDERS: PCP Nurse Practitioner Family; Referring Provider Family Medicine; Visit Provider Family Medicine | DX: Z00.00 Encounter for general adult medical examination without abnormal findings (principal) ==

== ENCOUNTER 2024-11-06 09:47 | Outpatient (RCR) | payer SELFPAY | END 2024-12-02 23:59 | LOC: CR 09:47 | PROVIDERS: PCP Nurse Practitioner Family; Referring Provider Family Medicine; Visit Provider Family Medicine | DX: Z00.00 Encounter for general adult medical examination without abnormal findings (principal) ==

== ENCOUNTER 2025-01-01 08:00 | Outpatient (RCR) | payer SELFPAY | END 2025-01-01 23:59 | LOC: CR 08:00 | PROVIDERS: PCP Nurse Practitioner Family; Referring Provider Family Medicine; Visit Provider Family Medicine | DX: Z00.00 Encounter for general adult medical examination without abnormal findings (principal) ==

== ENCOUNTER 2025-01-31 08:00 | Outpatient (RCR) | payer SELFPAY | END 2025-02-01 23:59 | LOC: CR 08:00 | PROVIDERS: PCP Nurse Practitioner Family; Referring Provider Family Medicine; Visit Provider Family Medicine | DX: Z00.00 Encounter for general adult medical examination without abnormal findings (principal) ==

== ENCOUNTER → 2025-02-07 | Outpatient (CLI) | payer SELFPAY, MEDICARE, OTHER ==
[2025-02-07 11:24] LABS: SERUM TEARS COLLECTION SPECIMEN PROCESSED
== END | disposition home or self-care (01) ==
PROVIDERS: PCP Nurse Practitioner Family; Referring Provider Ophthalmology; Visit Provider Ophthalmology
DX: H04.123 Dry eye syndrome of bilateral lacrimal glands (principal)

== ENCOUNTER 2025-02-26 08:00 | Outpatient (RCR) | payer SELFPAY | END 2025-03-03 23:59 | LOC: CR 08:00 | PROVIDERS: PCP Nurse Practitioner Family; Referring Provider Family Medicine; Visit Provider Family Medicine | DX: Z00.00 Encounter for general adult medical examination without abnormal findings (principal) ==

== ENCOUNTER 2025-03-05 08:38 | Outpatient (RCR) | payer SELFPAY | END 2025-04-03 23:59 | LOC: CR 08:38 | PROVIDERS: PCP Nurse Practitioner Family; Referring Provider Family Medicine; Visit Provider Family Medicine | DX: Z00.00 Encounter for general adult medical examination without abnormal findings (principal) ==

== ENCOUNTER → 2025-03-12 | Outpatient (CLI) | payer OTHER, MEDICARE, SELFPAY ==
--- NOTE | 2025-03-12 12:20 | US_ITS ---
PROCEDURE: THYROID 03/12/2025 REASON FOR EXAM: YEARLY THYROID U/S TECHNIQUE: Procedure Code: USTHY Modality: US Procedure: THYROID COMPARISON: 02/07/2024 FINDINGS: Right thyroid lobe size: 5.3 x 2.8 x 2.5 cm. It shows heterogenous echo pattern. Left thyroid lobe size: 4.9 x 1.9 x 1.8 cm. It shows heterogenous echo pattern. Isthmus: 0.1 cm Nodules: Right lobe: Superior pole solid vascular complex nodule measuring 2.7 x 2 x 1.4 cm. Midpole hypoechoic nonvascular nodule measuring 0.3 x 0.3 x 0.3 cm. Inferior pole solid complex vascular nodule measuring 1.5 x 1.3 x 1.9 cm. Left lobe: Midpole solid nonvascular nodule measuring 0.4 x 0.3 x 0.2 cm is noted. US/Thyroid IMPRESSION: Heterogenous thyroid gland, this could be seen in thyroiditis. Right thyroid lobe TR 3 and TR 4 nodules. Left thyroid lobe TR 3 nodule. Stable as compared. Reading Location: [place] [id number]
== END | disposition home or self-care (01) ==
LOC: US 12:18
PROVIDERS: PCP Nurse Practitioner Family; Referring Provider Surgery; Visit Provider Surgery
DX: E04.1 Nontoxic single thyroid nodule (principal)
CPT/HCPCS: 76536